=== PATIENT | female | born 2000 | race Caucasian/White ===

== ENCOUNTER 2023-11-10 20:12 | Emergency (ER) | payer OTHER, SELFPAY ==
--- NOTE | ~2023-11-10 | XR_ITS ---
EXAMINATION: XR KNEE, LEFT CLINICAL INFORMATION: Pain. COMPARISON: None available. TECHNIQUE: Two views of the left knee. FINDINGS: There is no fracture or dislocation. Joint spaces are maintained. There is a small suprapatellar effusion. The regional soft tissue is normal in appearance. XR/XR knee LT 2V IMPRESSION: No fracture or dislocation. Small suprapatellar effusion.
[2023-11-10 20:28] VITALS: BP 123/78; PULSE 88; RESP 18; TEMP 36.7; O2SAT 98; BMI 39.4
--- OUTSIDE RECORDS SUMMARY | 2023-11-10 21:42 | XMS_ITS | Continuity of Care Document ---
Author Organization [facility] Address [address] [place] [address]- Care Team Providers Care Hide Worker Name Role Phone Savannah Dasha ALTAMIRANO Primary Care Physician Encounter [facility] [place] Date(s): 09/15/20 - 10/15/[address] [address] Allergies, Adverse Reactions, Alerts No Known Medication Allergies Medications Apri 0.15 mg-0.03 mg oral tablet 1 tablet, By Mouth, Daily, # 84 tablet, 4 Refills, Maintenance, 10/07/20 11:32:00 EDT, Tablet, [facility]/pharmacy #[id number], Partial fill upon patient request if the prescription is for a schedule II opioid drug., 1 tablet By Mouth Daily, 88.8, kg, 07/25/20 6:2... Start Date: 10/07/20 Status: Ordered ibuprofen 800 mg oral tablet See Instructions, TAKE 1 TABLET BY MOUTH 3 TIMES A DAY, # 90 tablet, Refills 0, Acute, InstructionsReplace Required Details, Route to Pharmacy Electronically, [facility] STORE [id number], 88.8, kg, 07/25/20 6:22:00 EST, Dry Weight Start Date: 08/18/20 Status: Ordered Keflex monohydrate 500 mg oral capsule = 500 mg, By Mouth, 4 times a day, # 28 capsule, 0 Refills, Maintenance, 06/12/19 4:23:00 EST Start Date: 06/12/19 Status: Ordered Tylenol 325 mg oral tablet 650 mg, 2, tablet, By Mouth, Every 4 hours, PRN, # 120 tablet, Refills 0, Tot. Refills 0, Maintenance, for fever, 07/25/20 7:34:00 EST, Route to Pharmacy Electronically, [facility]/pharmacy #[id number], Partial fill upon patient request if the prescription is for... Start Date: 07/25/20 Status: Ordered Social History Social History Type Response Smoking Status Never (less than 100 in lifetime) entered on: 08/20/20 Sex
--- OUTSIDE RECORDS SUMMARY | 2023-11-10 21:42 | XMS_ITS | Continuity of Care Document ---
Author Organization [facility] Address [address] [place] [address]- Care Team Providers Care Spiritual Advisor Name Role Phone Dasha Nuñez MD Primary Care Physician [phone] [place] [facility] [place] 10/11/22 - 11/10/22 [facility]/[address] [address]- Attending Physician: Shruthi Walden Admitting Physician: Shruthi Walden Referring Physician: AdmtrShruthi Allergies, Adverse Reactions, Alerts No Known Medication Allergies Medications Apri 0.15 mg-0.03 mg oral tablet 1 tablet, By Mouth, Daily, # 84 tablet, 4 Refills, Maintenance, 10/07/20 11:32:00 EDT, Tablet, [facility]/pharmacy #[id number], Partial fill upon patient request if the prescription is for a schedule II opioid drug., 1 tablet By Mouth Daily, 88.8, kg, 07/25/20 6:2... Start Date: 10/07/20 Status: Ordered ibuprofen 800 mg oral tablet See Instructions, TAKE 1 TABLET BY MOUTH 3 TIMES A DAY, # 90 tablet, Refills 0, Acute, InstructionsReplace Required Details, Route to Pharmacy Electronically, [facility] ST[facility] [id number], 88.8, kg, 07/25/20 6:22:00 EST, Dry Weight [...] 07/25/20 7:34:00 EST, Route to Pharmacy Electronically, [facility]/pharmacy #[id number], Partial fill upon patient request if the prescription is for... Start Date: 07/25/20 Status: Ordered Social History Social History Type Response Smoking Status Never (less than 100 in lifetime) entered on: 08/20/20 Sex Patient Care team information Care Team Personnel Name: Dasha Nuñez MD Position: [facility] Outreach Member Role: PCP Address: Address: [address] [place] [address]- Care Team Related Persons Name: NAHID MORGAN Address: home [address] [facility] [facility] [address] [place] [address]
--- OUTSIDE RECORDS SUMMARY | 2023-11-10 21:42 | XMS_ITS | Continuity of Care Document ---
Author Organization [facility] ter Address [address] [place] [address]- Care Team Providers Care Community Health Nursing Director Name Role Phone Not on Staff, PCP Primary Care Physician Unavail able Encounter [facility] Date(s): 06/12/19 - 06/12/[address] [address]- [facility] Encounter Diagnosis Acute urinary tract infection(Final) - 06/12/19 Discharge Disposition: A-D/C Home Attending Physician: Frank Medellin MD Admitting Physician: Frank Medellin MD Referring Physician: Not on Staff, Referring MD Allergies, Adverse Reactions, Alerts No Known Medication Allergies Medications Keflex monohydrate 500 mg oral capsule = 500 mg, By Mouth, 4 times a day, # 28 capsule, 0 Refills, Maintenance, 06/12/19 4:23:00 EST Start Date: 06/12/19 Status: Ordered Pyridium 100 mg oral tablet 1 tablet = 100 mg, By Mouth, 3 times a day, for 3 days, # 9 tablet, 0 Refills, Acute 06/15/19 4:23:00 EST, 06/12/19 4:23:00 EST, Tablet Start Date: 06/12/19 Stop Date: 06/15/19 Status: Ordered Vital Signs Most recent to oldest [Reference Range]: 1 2 Oxygen Saturation [94-100 %] 100 % (06/12/19 3:23 AM) 99 % (06/12/19 1:38 AM) Pulse Rate [55-90 bpm] 107 bpm *H* (06/12/19 3:23 AM) 88 bpm (06/12/19 1:38 AM) Blood Pressure [71-110/30-71 mm Hg] 134/ 76mm Hg *H* (06/12/19 3:23 AM) 123/73mm Hg *H* (06/12/19 1:38 AM) Respiratory Rate [16-30 br/min] 20 br/mi n (06/12/19 3:23 AM) 20 br/min (06/12/19 1:38 AM) Temperature [96.8-100.4 DegF] 98.5 DegF (06/12/19 3:23 AM) 98.6 DegF (06/12/19 1:38 AM) Mode of Delivery (Oxygen) Room air (06/12/19 3:23 AM) Room air (06/12/19 1:38 AM) Blood pressure sites Arm, right (06/12/19 3:23 AM) Arm, right (06/12/19 1:38 AM) Temperature Route Oral (06/12/19 3:23 AM) Oral (06/12/19 1:38 AM)
--- OUTSIDE RECORDS SUMMARY | 2023-11-10 21:42 | XMS_ITS | Continuity of Care Document ---
Author Organization [facility] Address [address] [place] [address]- Care Team Providers Care Room Service Runner Name Role Phone Savannah Dasha ALTAMIRANO Primary Care Physician [phone] [place] [facility] [place] - 08/30/[address] [address] Allergies, Adverse Reactions, Alerts No Known Medication Allergies Medications Apri 0.15 mg-0.03 mg oral tablet 1 tablet, By Mouth, Daily, # 84 tablet, 2 Refills, Maintenance, 07/25/20 7:32:00 EST, Tablet, [facility]/pharmacy #[id number], Partial fill upon patient request if the prescription is for a schedule II opioid drug., 1 tablet By Mouth Daily, 88.8, kg, 07/25/20 6:22... Start Date: 07/25/20 Status: Ordered ibuprofen 800 mg oral tablet See Instructions, TAKE 1 TABLET BY MOUTH 3 TIMES A DAY, # 90 tablet, Refills 0, Acute, InstructionsReplace Required Details, Route to Pharmacy Electronically, [facility] STORE [id number], 88.8, kg, 07/25/20 6:22:00 EST, Dry Weight [...] 07/25/20 7:34:00 EST, Route to Pharmacy Electronically, [facility]/pharmacy #[id number], Partial fill upon patient request if the prescription is for... Start Date: 07/25/20 Status: Ordered Social History Social History Type Response Smoking Status Never (less than 100 in lifetime) entered on: 08/20/20 Sex
--- OUTSIDE RECORDS SUMMARY | 2023-11-10 21:42 | XMS_ITS | Continuity of Care Document ---
Author Organization [facility] Address [address] [place] [address]- Care Team Providers Care Brick Extruder Operator Name Role Phone Dasha Nuñez MD Primary Care Physician Encounter [facility] Date(s): 11/18/20 - 12/18/20 [facility] [address] [place] [address] [address] Allergies, Adverse Reactions, Alerts No Known Medication Allergies Medications Apri 0.15 mg-0.03 mg oral tablet 1 tablet, By Mouth, Daily, # 84 tablet, 4 Refills, Maintenance, 10/07/20 11:32:00 EDT, Tablet, [facility]/pharmacy #[id number], Partial fill upon patient request if the prescription is for a schedule II opioid drug., 1 tablet By Mouth Daily, 88.8, kg, 07/25/20 6:2... Start Date: 10/07/20 Status: Ordered ibuprofen 800 mg oral tablet See Instructions, TAKE 1 TABLET BY MOUTH 3 TIMES A DAY, # 90 tablet, Refills 0, Acute, InstructionsReplace Required Details, Route to Pharmacy Electronically, [facility] STORE [id number], 88.8, kg, 07/25/20 6:22:00 EST, Dry Weight [...] 07/25/20 7:34:00 EST, Route to Pharmacy Electronically, [facility]/pharmacy #[id number], Partial fill upon patient request if the prescription is for... Start Date: 07/25/20 Status: Ordered Social History Social History Type Response Smoking Status Never (less than 100 in lifetime) entered on: 08/20/20 Sex
--- OUTSIDE RECORDS SUMMARY | 2023-11-10 21:42 | XMS_ITS | Continuity of Care Document ---
Author Organization [facility] Address [address] [place] [address]- Care Team Providers Care Leguillon Debeader Name Role Phone Dasha Nuñez MD Primary Care Physician Encounter [facility] [place] Date(s): 09/29/20 - 10/29/20 [facility] [address] [place], [place] [address] Allergies, Adverse Reactions, Alerts No Known Medication Allergies Medications Apri 0.15 mg-0.03 mg oral tablet 1 tablet, By Mouth, Daily, # 84 tablet, 4 Refills, Maintenance, 10/07/20 11:32:00 EDT, Tablet, [facility]/pharmacy #[id number], Partial fill upon patient request if the prescription is for a schedule II opioid drug., 1 tablet By Mouth Daily, 88.8, kg, 07/25/20 6:2... Start Date: 10/07/20 Status: Ordered ibuprofen 800 mg oral tablet See Instructions, TAKE 1 TABLET BY MOUTH 3 TIMES A DAY, # 90 tablet, Refills 0, Acute, InstructionsReplace Required Details, Route to Pharmacy Electronically, [facility] ST[facility] 17724, 88.8, kg, 07/25/20 6:22:00 EST, Dry Weight [...] 07/25/20 7:34:00 EST, Route to Pharmacy Electronically, [facility]/pharmacy #[id number], Partial fill upon patient request if the prescription is for... Start Date: 07/25/20 Status: Ordered Social History Social History Type Response Smoking Status Never (less than 100 in lifetime) entered on: 08/20/20 Sex
--- OUTSIDE RECORDS SUMMARY | 2023-11-10 21:42 | XMS_ITS | Continuity of Care Document ---
Author Organization [facility] Address [address] [place] [address]- Care Team Providers Care Swine Genetics Researcher Name Role Phone Savannah Dasha ALTAMIRANO Primary Care Physician [phone] [place] [facility] [place](s): 08/20/20 - 09/19/[address] [address]- Attending Physician: Shruthi Walden Admitting Physician: AdmtrShruthi Referring Physician: AdmtrShruthi Allergies, Adverse Reactions, Alerts No Known Medication Allergies Medications Apri 0.15 mg-0.03 mg oral tablet 1 tablet, By Mouth, Daily, # 84 tablet, 2 Refills, Maintenance, 07/25/20 7:32:00 EST, Tablet, [facility]/pharmacy #[id number], Partial fill upon patient request if the prescription is for a schedule II opioid drug., 1 tablet By Mouth Daily, 88.8, kg, 07/25/20 6:22... Start Date: 07/25/20 Status: Ordered ibuprofen 800 mg oral tablet See Instructions, TAKE 1 TABLET BY MOUTH 3 TIMES A DAY, # 90 tablet, Refills 0, Acute, InstructionsReplace Required Details, Route to Pharmacy Electronically, [facility] STORE [id number], 88.8, kg, 07/25/20 6:22:00 EST, Dry Weight [...] 07/25/20 7:34:00 EST, Route to Pharmacy Electronically, [facility]/pharmacy #[id number], Partial fill upon patient request if the prescription is for... Start Date: 07/25/20 Status: Ordered Social History Social History Type Response Smoking Status Never (less than 100 in lifetime) entered on: 08/20/20 Sex
--- OUTSIDE RECORDS SUMMARY | 2023-11-10 21:42 | XMS_ITS | Continuity of Care Document ---
Author Organization [facility] ter Address [address] [place] [address]- Care Team Providers Care Quality Control Lead Name Role Phone Kristi Peterson MD Primary Care Physician [place] [facility] [place]19/20 - 07/20/[address] [address]- Encounter Diagnosis Pelvic pain(Final) - 07/20/20 Discharge Disposition: A-D/C Home Attending Physician: Chiara Gr DO Admitting Physician: Chiara Gr DO Referring Physician: Not on Staff, Referring MD Allergies, Adverse Reactions, Alerts No Known Medication Allergies Medications Keflex monohydrate 500 mg oral capsule = 500 mg, By Mouth, 4 times a day, # 28 capsule, 0 Refills, Maintenance, 06/12/19 4:23:00 EST Start Date: 06/12/19 Status: Ordered Vital Signs Most recent to oldest [Reference Range]: 1 2 3 Oxygen Saturation [94-100 %] 100 % (07/20/20 6:06 AM) 99 % (07/20/20 2:01 AM) 100 % (07/19/20 10:39 PM) Pulse Rate [55-90 bpm] 86 bpm (07/20/20 6:06 AM) 98 bpm *H* (07/20/20 2:01 AM) 95 bpm *H* (07/19/20 10:39 PM) Blood Pressure [90-138/55-84 mm Hg] 121/68mm Hg (07/20/20 6:06 AM) 110/68mm Hg (07/20/20 2:01 AM) 111/66mm Hg (07/19/20 10:39 PM) Respiratory Rate [16-30 br/min] 20 br/min (07/20/20 6:06 AM) 16 br/min (07/19/20 10:39 PM) Temperature [96.8-100.4 DegF] 98.8 DegF (07/19/20 10:39 PM) Mode of Delivery (Oxygen) Room air (07/19/20 10:39 PM) Room air (07/19/20 10:17 PM) Blood pressure sites Arm, left (07/19/20 10:39 PM) Temperature Route Oral (07/19/20 10:39 PM)
--- OUTSIDE RECORDS SUMMARY | 2023-11-10 21:42 | XMS_ITS | Continuity of Care Document ---
Author Organization [facility] Address [address] [place] [address]- Care Team Providers Care As400 Developer Name Role Phone Savannah Dasha ALTAMIRANO Primary Care Physician [phone] Encounter [facility] Date(s): 10/07/20 - 11/06/[address] [address] Allergies, Adverse Reactions, Alerts No Known Medication Allergies Medications Apri 0.15 mg-0.03 mg oral tablet 1 tablet, By Mouth, Daily, # 84 tablet, 4 Refills, Maintenance, 10/07/20 11:32:00 EDT, Tablet, [facility]/pharmacy #[id number], Partial fill upon patient request if the prescription is for a schedule II opioid drug., 1 tablet By Mouth Daily, 88.8, kg, 07/25/20 6:2... Start Date: 10/07/20 Status: Ordered ibuprofen 800 mg oral tablet See Instructions, TAKE 1 TABLET BY MOUTH 3 TIMES A DAY, # 90 tablet, Refills 0, Acute, InstructionsReplace Required Details, Route to Pharmacy Electronically, [facility] STORE [id number], 88.8, kg, 07/25/20 6:22:00 EST, Dry Weight [...] 07/25/20 7:34:00 EST, Route to Pharmacy Electronically, [facility]/pharmacy #[id number], Partial fill upon patient request if the prescription is for... Start Date: 07/25/20 Status: Ordered Social History Social History Type Response Smoking Status Never (less than 100 in lifetime) entered on: 08/20/20 Sex
--- OUTSIDE RECORDS SUMMARY | 2023-11-10 21:42 | XMS_ITS | Continuity of Care Document ---
Author Organization [facility] Address [address] [place] [address]- Care Team Providers Care Filling Hand Name Role Phone Savannah Dasha ALTAMIRANO Primary Care Physician Encounter [facility] [place] Date(s): 07/23/20 - 09/05/[address] [address]- Attending Physician: Not on Staff, Attending MD Referring Physician: Kristi Peterson MD Allergies, Adverse Reactions, Alerts No Known Medication Allergies Medications Apri 0.15 mg-0.03 mg oral tablet 1 tablet, By Mouth, Daily, # 84 tablet, 2 Refills, Maintenance, 07/25/20 7:32:00 EST, Tablet, [facility]/pharmacy #[id number], Partial fill upon patient request if the prescription is for a schedule II opioid drug., 1 tablet By Mouth Daily, 88.8, kg, 07/25/20 6:22... Start Date: 07/25/20 Status: Ordered ibuprofen 800 mg oral tablet See Instructions, TAKE 1 TABLET BY MOUTH 3 TIMES A DAY, # 90 tablet, Refills 0, Acute, InstructionsReplace Required Details, Route to Pharmacy Electronically, [facility] STORE [id number], 88.8, kg, 07/25/20 6:22:00 EST, Dry Weight [...] 07/25/20 7:34:00 EST, Route to Pharmacy Electronically, [facility]/pharmacy #[id number], Partial fill upon patient request if the prescription is for... Start Date: 07/25/20 Status: Ordered Social History Social History Type Response Smoking Status Never (less than 100 in lifetime) entered on: 08/20/20 Sex
--- OUTSIDE RECORDS SUMMARY | 2023-11-10 21:42 | XMS_ITS | Continuity of Care Document ---
Author Organization [facility] Address [address] [place] [address]- Care Team Providers Care Contact Center Consultant Name Role Phone Savannah Dasha ALTAMIRANO Primary Care Physician Encounter [facility] [place] Date(s): 10/09/20 - 11/08/[address] [address] Allergies, Adverse Reactions, Alerts No Known Medication Allergies Medications Apri 0.15 mg-0.03 mg oral tablet 1 tablet, By Mouth, Daily, # 84 tablet, 4 Refills, Maintenance, 10/07/20 11:32:00 EDT, Tablet, [facility]/pharmacy #[id number], Partial fill upon patient request if the prescription is for a schedule II opioid drug., 1 tablet By Mouth Daily, 88.8, kg, 07/25/20 6:2... Start Date: 10/07/20 Status: Ordered ibuprofen 800 mg oral tablet See Instructions, TAKE 1 TABLET BY MOUTH 3 TIMES A DAY, # 90 tablet, Refills 0, Acute, InstructionsReplace Required Details, Route to Pharmacy Electronically, [facility] STORE 07462, 88.8, kg, 07/25/20 6:22:00 EST, Dry Weight [...] 07/25/20 7:34:00 EST, Route to Pharmacy Electronically, [facility]/pharmacy #[id number], Partial fill upon patient request if the prescription is for... Start Date: 07/25/20 Status: Ordered Social History Social History Type Response Smoking Status Never (less than 100 in lifetime) entered on: 08/20/20 Sex
--- OUTSIDE RECORDS SUMMARY | 2023-11-10 21:42 | XMS_ITS | Continuity of Care Document ---
Author Organization [facility] Address [address] [place] [address]- Care Team Providers Care Staff Development Coordinator Rn Name Role Phone Savannah Dasha ALTAMIRANO Primary Care Physician [phone] [place] [facility] [place] - 08/19/[address] [address] Allergies, Adverse Reactions, Alerts No Known Medication Allergies Medications Apri 0.15 mg-0.03 mg oral tablet 1 tablet, By Mouth, Daily, # 84 tablet, 2 Refills, Maintenance, 07/25/20 7:32:00 EST, Tablet, [facility]/pharmacy #[id number], Partial fill upon patient request if the prescription is for a schedule II opioid drug., 1 tablet By Mouth Daily, 88.8, kg, 07/25/20 6:22... Start Date: 07/25/20 Status: Ordered ibuprofen 800 mg oral tablet See Instructions, TAKE 1 TABLET BY MOUTH 3 TIMES A DAY, # 90 tablet, Refills 0, Acute, InstructionsReplace Required Details, Route to Pharmacy Electronically, [facility] 10744, 88.8, kg, 07/25/20 6:22:00 EST, Dry Weight [...] 07/25/20 7:34:00 EST, Route to Pharmacy Electronically, [facility]/pharmacy #[id number], Partial fill upon patient request if the prescription is for... Start Date: 07/25/20 Status: Ordered
--- OUTSIDE RECORDS SUMMARY | 2023-11-10 21:42 | XMS_ITS | Continuity of Care Document ---
Author Organization [facility] ter Address [address] [place] [address]- Care Team Providers Care Lei Seller Name Role Phone Kristi Peterson MD Primary Care Physician En[place] [facility] [place] Date(s): 07/25/20 - 07/25/[address] [address]- Discharge Disposition: A-D/C Home Attending Physician: Bety Jo MD Admitting Physician: Bety Jo MD Referring Physician: Bety Jo MD Allergies, Adverse Reactions, Alerts No Known Medication Allergies Medications Apri 0.15 mg-0.03 mg oral tablet 1 tablet, By Mouth, Daily, # 84 tablet, 2 Refills, Maintenance, 07/25/20 7:32:00 EST, Tablet, [facility]/pharmacy #[id number], Partial fill upon patient request if the prescription is for a schedule II opioid drug., 1 tablet By Mouth Daily, 88.8, kg, 07/25/20 6:22... Start Date: 07/25/20 Status: Ordered ibuprofen 800 mg oral tablet 800 mg, 1, tablet, By Mouth, 3 times a day, # 90 tablet, Refills 0, Tot. Refills 0, Maintenance, 07/25/20 7:34:00 EST, Route to Pharmacy Electronically, [facility]/pharmacy #[id number], Partial fill upon patient request if the prescription is for a schedule II opi... Start Date: 07/25/20 Status: Ordered Keflex monohydrate 500 mg oral [...] 07/25/20 7:34:00 EST, Route to Pharmacy Electronically, [facility]/pharmacy #[id number], Partial fill upon patient request if the prescription is for... Start Date: 07/25/20 Status: Ordered Vital Signs Most recent to oldest [Reference Range]: 1 2 3 Weight 88.8 kg (07/25/20 6:22 AM) Oxygen Saturation [94-100 %] 100 % (07/25/20 8:45 AM) 100 % (07/25/20 8:30 AM) 100 % (07/25/20 8:16 AM) Pulse Rate [55-90 bpm] 89 bpm (07/25/20 6:22 AM) Blood Pressure [90-138/55-84 mm Hg] 105/73mm Hg (07/25/20 8:45 AM) 100/67mm Hg (07/25/20 8:30 AM) 101/49mm Hg (07/25/20 8:16 AM) Respiratory Rate [16-30 br/min] 17 br/min (07/25/20 8:45 AM) 19 br/min (07/25/20 8:30 AM) 15 br/min *L* (07/25/20 8:16 AM) Temperature [96.8-100.4 DegF] 99.0 DegF (07/25/20 9:30 AM) 99.4 DegF (07/25/20 8:16 AM) 98.2 DegF (07/25/20 6:22 AM) Liters per Minute 6 L/min (07/25/20 8:45 AM) 6 L/min (07/25/20 8:30 AM) 6 L/min (07/25/20 8:15 AM) Mode of Delivery (Oxygen) Simple face ma sk (07/25/20 8:45 AM) Simple face mask (07/25/20 8:30 AM) Simple face mask (07/25/20 8:15 AM) Blood pressure sites Arm, right (07/25/20 8:16 AM) Arm, left (07/25/20 6:22 AM) Temperature Route Temporal (07/25/20 9:30 AM) Temporal (07/25/20 8:16 AM) Temporal (07/25/20 6:22 AM) Dry Weight 88.8 kg (07/25/20 6:22 AM)
--- OUTSIDE RECORDS SUMMARY | 2023-11-10 21:42 | XMS_ITS | Continuity of Care Document ---
Author Organization [facility] Address [address] [place] [address]- Care Team Providers Care Forensic Toxicologist Name Role Phone Not on Staff, PCP Primary Care Physician Unavail able [place] [facility] [place] 02/23/20 - 02/23/[address] [address]- [facility] Encounter Diagnosis Sprain of elbow, right(Final) - 02/23/20 Discharge Disposition: A-D/C Home Attending Physician: Frank Vega MD Admitting Physician: Frank Vega MD Referring Physician: Not on Staff, Referring MD Allergies, Adverse Reactions, Alerts No Known Medication Allergies Medications Keflex monohydrate 500 mg oral capsule = 500 mg, By Mouth, 4 times a day, # 28 capsule, 0 Refills, Maintenance, 06/12/19 4:23:00 EST Start Date: 06/12/19 Status: Ordered Results Radiology Reports * Exam Date Time Procedure Performing Provider Status 02/23/20 3:43 AM Forearm 2 Views Right Laney Borges ; Willy (Verified) Notes: (Forearm 2 Views Right) Reason For Exam: with Pain;Trauma RESULT: Forearm 2 Views Right PROCEDURE: Forearm 2 Views Right CLINICAL INDICATION: 19 years old Female with Hx of Present Illness: fell at work, pain right arm ,lower back and head; Reason: Trauma; with Pain; Clinical Question(s): Fracture; Special Instructions: This is a protocol film and radiologist should call any findings to the Charge Nurse. TECHNIQUE: Frontal and lateral views of the RIGHT forearm are obtained. COMPARISONS: None. FINDINGS: Bones and joints: No fracture or dislocation. Joint spaces are normal. Soft Tissues: Regional soft tissues are unremarkable. No evidence of radiopaque foreign body. IMPRESSION: 1. No evidence of acute bony injuries. Thank you for allowing me to participate in the care of this patient. WSN: [id number] Ordering Physician: Iliana العلي Dictated By: Rudy Nagel MD Dictated Date/Time: 02/23/20 8:30 am Reviewed By: Rudy Nagel MD Signed By: Rudy Nagel MD Signed Date/Time: 02/23/20 8:30 am Transcribed By: JESICA Transcribed Date/Time: 02/23/20 8:29 am Vital Signs Most recent to oldest [Reference Range]: 1 2 3 Oxygen Saturation [94-100 %] 100 % (02/23/20 8:17 AM) 99 % (02/23/20 6:51 AM) 100 % (02/23/20 3:23 AM) Pulse Rate [55-90 bpm] 76 bpm (02/23/20 8:17 AM) 84 bpm (02/23/20 6:51 AM) 90 bpm (02/23/20 3:23 AM) Blood Pressure [90-138/55-84 mm Hg] 120/74mm Hg (02/23/20 8:17 AM) 138/77mm Hg (02/23/20 6:51 AM) 139/74mm Hg *H* (02/23/20 3:23 AM) Respiratory Rate [16-30 br/min] 17 br/min (02/23/20 8:17 AM) 20 br/min (02/23/20 6:51 AM) 16 br/min (02/23/20 3:23 AM) Temperature [96.8-100.4 DegF] 97.6 DegF (02/23/20 8:17 AM) 98.8 DegF (02/23/20 6:51 AM) 98.3 DegF (02/23/20 3:23 AM) Mode of Delivery (Oxygen) Room air (02/23/20 8:17 AM) Room air (02/23/20 6:51 AM) Room air (02/23/20 3:23 AM) Blood pressure sites Arm, left (02/23/20 8:17 AM) Arm, left (02/23/20 6:51 AM) Arm, left (02/23/20 3:23 AM) Temperature Route Oral (02/23/20 8:17 AM) Oral (02/23/20 6:51 AM) Oral (02/23/20 3:23 AM)
--- OUTSIDE RECORDS SUMMARY | 2023-11-10 21:42 | XMS_ITS | Continuity of Care Document ---
Author Organization [facility] Address [address] [place] [address]- Care Team Providers Care Meteorology Professor Name Role Phone Savannah Dasha ALTAMIRANO Primary Care Physician [place] [facility] [place]/[address] [address] Allergies, Adverse Reactions, Alerts No Known Medication Allergies Medications Apri 0.15 mg-0.03 mg oral tablet 1 tablet, By Mouth, Daily, # 84 tablet, 2 Refills, Maintenance, 07/25/20 7:32:00 EST, Tablet, [facility]/pharmacy #[id number], Partial fill upon patient request if the prescription is for a schedule II opioid drug., 1 tablet By Mouth Daily, 88.8, kg, 07/25/20 6:22... Start Date: 07/25/20 Status: Ordered ibuprofen 800 mg oral tablet See Instructions, TAKE 1 TABLET BY MOUTH 3 TIMES A DAY, # 90 tablet, Refills 0, Acute, InstructionsReplace Required Details, Route to Pharmacy Electronically, [id number], 88.8, kg, 07/25/20 6:22:00 EST, Dry Weight [...] 07/25/20 7:34:00 EST, Route to Pharmacy Electronically, [facility]/pharmacy #[id number], Partial fill upon patient request if the prescription is for... Start Date: 07/25/20 Status: Ordered Social History Social History Type Response Smoking Status Never (less than 100 in lifetime) entered on: 08/20/20 Sex
--- OUTSIDE RECORDS SUMMARY | 2023-11-10 21:42 | XMS_ITS | Continuity of Care Document ---
Author Organization [facility] ter Address [address] [place] [address]- Care Team Providers Care Transfer Knitter Name Role Phone Savannah Dasha ALTAMIRANO Primary Care Physician En[place] [facility] [place](s): 11/10/20 - 11/11/[address] [address]- Discharge Disposition: A-D/C Walkout Attending Physician: Not on Staff, Attending MD Admitting Physician: Not on Staff, Admitting MD Referring Physician: Not on Staff, Referring MD Allergies, Adverse Reactions, Alerts No Known Medication Allergies Medications Apri 0.15 mg-0.03 mg oral tablet 1 tablet, By Mouth, Daily, # 84 tablet, 4 Refills, Maintenance, 10/07/20 11:32:00 EDT, Tablet, [facility]/pharmacy #[id number], Partial fill upon patient request if the prescription is for a schedule II opioid drug., 1 tablet By Mouth Daily, 88.8, kg, 07/25/20 6:2... Start Date: 10/07/20 Status: Ordered ibuprofen 800 mg oral tablet See Instructions, TAKE 1 TABLET BY MOUTH 3 TIMES A DAY, # 90 tablet, Refills 0, Acute, InstructionsReplace Required Details, Route to Pharmacy Electronically, [id number], 88.8, kg, 07/25/20 6:22:00 EST, Dry Weight [...] 07/25/20 7:34:00 EST, Route to Pharmacy Electronically, [facility]/pharmacy #[id number], Partial fill upon patient request if the prescription is for... Start Date: 07/25/20 Status: Ordered Results Orders for Microbiology Reports Name Date Group A Strep Screen and Culture 11/10/20 Microbiology Reports TEST:Group A Strep Screen and Culture STATUS:Unauthenticated BODY SITE: SOURCE:THROAT COLLECTED DATE/TIME:11/10/20 9:30 PM Group A Strep Screen and Culture SPECIMEN DESCRIPTION : THROAT SWAB SPECIAL REQUESTS : NONE DIRECT EXAM : RAPID GROUP A RESULT IS NEGATIVE, REFER TO CULTURE RESULT. REPORT STATUS : PRELIMINARY REPORT Vital Signs Most recent to oldest [Reference Range]: 1 2 3 Oxygen Saturation [94-100 %] 99 % (11/11/20 3:11 AM) 98 % (11/11/20 12:40 AM) 99 % (11/10/20 9:10 PM) Pulse Rate [55-90 bpm] 90 bpm (11/11/20 3:11 AM) 104 bpm *H* (11/11/20 12:40 AM) 85 bpm (11/10/20 9:10 PM) Blood Pressure [90-138/55-84 mm Hg] 136/89mm Hg (11/11/20 3:11 AM) 148/88mm Hg *H* (11/11/20 12:40 AM) 126/64mm Hg (11/10/20 9:10 PM) Respiratory Rate [16-30 br/min] 20 br/min (11/11/20 3:11 AM) 20 br/min (11/11/20 12:40 AM) 16 br/min (11/10/20 9:10 PM) Temperature [96.8-100.4 DegF] 98.0 DegF (11/11/20 3:11 AM) 98.2 DegF (11/11/20 12:40 AM) 98.6 DegF (11/10/20 9:10 PM) Mode of Delivery (Oxygen) Room air (11/11/20 3:11 AM) Room air (11/11/20 12:40 AM) Room air (11/10/20 9:10 PM) Blood pressure sites Arm, left (11/10/20 9:10 PM) Temperature Route Oral (11/11/20 3:11 AM) Oral (11/11/20 12:40 AM) Oral (11/10/20 9:10 PM) Social History Social History Type Response Smoking Status Never (less than 100 in lifetime) entered on: 08/20/20 Sex
--- OUTSIDE RECORDS SUMMARY | 2023-11-10 21:42 | XMS_ITS | Continuity of Care Document ---
Author Organization [facility] Address [address] [place] [address]- Care Team Providers Care State Appellate Clerk Name Role Phone Savannah Dasha ALTAMIRANO Primary Care Physician [phone] Encounter [facility] [place] Date(s): 07/25/20 - 08/24/[address] [address] Allergies, Adverse Reactions, Alerts No Known Medication Allergies Medications Apri 0.15 mg-0.03 mg oral tablet 1 tablet, By Mouth, Daily, # 84 tablet, 2 Refills, Maintenance, 07/25/20 7:32:00 EST, Tablet, [facility]/pharmacy #[id number], Partial fill upon patient request if the prescription is for a schedule II opioid drug., 1 tablet By Mouth Daily, 88.8, kg, 07/25/20 6:22... Start Date: 07/25/20 Status: Ordered ibuprofen 800 mg oral tablet See Instructions, TAKE 1 TABLET BY MOUTH 3 TIMES A DAY, # 90 tablet, Refills 0, Acute, InstructionsReplace Required Details, Route to Pharmacy Electronically, [facility]854, 88.8, kg, 07/25/20 6:22:00 EST, Dry Weight [...] 07/25/20 7:34:00 EST, Route to Pharmacy Electronically, [facility]/pharmacy #[id number], Partial fill upon patient request if the prescription is for... Start Date: 07/25/20 Status: Ordered Social History Social History Type Response Smoking Status Never (less than 100 in lifetime) entered on: 08/20/20 Sex
--- OUTSIDE RECORDS SUMMARY | 2023-11-10 21:42 | XMS_ITS | Continuity of Care Document ---
Author Organization [facility] ter Address [address] [place] [address]- Care Team Providers Care Hand Chain Maker Name Role Phone Dasha Nuñez MD Primary Care Physician [phone] Encounter [facility] [place] Date(s): 08/26/20 - 08/27/[address] [address]- Discharge Disposition: A-D/C Home Attending Physician: Klaus Arellano MD Admitting Physician: Klaus Arellano MD Referring Physician: Not on Staff, Referring MD Allergies, Adverse Reactions, Alerts No Known Medication Allergies Medications Apri 0.15 mg-0.03 mg oral tablet 1 tablet, By Mouth, Daily, # 84 tablet, 2 Refills, Maintenance, 07/25/20 7:32:00 EST, Tablet, [facility]/pharmacy #[id number], Partial fill upon patient request if the prescription is for a schedule II opioid drug., 1 tablet By Mouth Daily, 88.8, kg, 07/25/20 6:22... Start Date: 07/25/20 Status: Ordered ibuprofen 800 mg oral tablet See Instructions, TAKE 1 TABLET BY MOUTH 3 TIMES A DAY, # 90 tablet, Refills 0, Acute, InstructionsReplace Required Details, Route to Pharmacy Electronically, [facility] [address]97, 88.8, kg, 07/25/20 6:22:00 EST, Dry Weight [...] 7:34:00 EST, Route to Pharmacy Electronically, [facility]/pharmacy #[id number], Partial fill upon patient request if the prescription is for... Start Date: 07/25/20 Status: Ordered Results Radiology Reports * Exam Date Time Procedure Performing Provider Status 08/27/20 2:47 AM Finger 5th Left Hand Piter De Anda ; Auth (Verified) Notes: (Finger 5th Left Hand) Reason For Exam: Trauma RESULT: Finger 5th Left Hand Finger 5th Left Hand, 3 views Hx of Present Illness: Pt reporting got L 5th finger nail caught in drawer. COMPARISON: None. FINDINGS: No fractures or bone lesions. No arthritic changes. Dorsal elevated nail but otherwise normal. IMPRESSION: Fingernail displacement but otherwise normal. WSN: [id number] Ordering Physician: Redd Krause Dictated By: Reese Henry MD Dictated Date/Time: 08/27/20 7:33 am Reviewed By: Reese Henry MD Signed By: Reese Henry MD Signed Date/Time: 08/27/20 7:33 am Transcribed By: JESICA Transcribed Date/Time: 08/27/20 7:32 am Vital Signs Most recent to oldest [Reference Range]: 1 2 Oxygen Saturation [94-100 %] 99 % (08/27/20 3:40 AM) 100 % (08/26/20 11:52 PM) Pulse Rate [55-90 bpm] 84 bpm (08/27/20 3:40 AM) 86 bpm (08/26/20 11:52 PM) Blood Pressure [90-138/55-84 mm Hg] 111/ 71mm Hg (08/27/20 3:40 AM) 121/75mm Hg (08/26/20 11:52 PM) Respiratory Rate [16-30 br/min] 18 br/mi n (08/27/20 3:40 AM) 20 br/min (08/26/20 11:52 PM) Temperature [96.8-100.4 DegF] 97.5 DegF (08/27/20 3:40 AM) 98.8 DegF (08/26/20 11:52 PM) Mode of Delivery (Oxygen) Room air (08/27/20 3:40 AM) Room air (08/26/20 11:52 PM) Blood pressure sites Arm, left (08/27/20 3:40 AM) Arm, right (08/26/20 11:52 PM) Temperature Route Oral (08/27/20 3:40 AM) Oral (08/26/20 11:52 PM) Social History Social History Type Response Smoking Status Never (less than 100 in lifetime) entered on: 08/20/20 Sex
--- OUTSIDE RECORDS SUMMARY | 2023-11-10 21:42 | XMS_ITS | Continuity of Care Document ---
Author Organization [facility] Address [address] [place] [address]- Care Team Providers Care Seed Expert Name Role Phone Not on Staff, PCP Primary Care Physician Unavail able [place] [facility] [place] 09/28/[address] [address]- Encounter Diagnosis Viral illness(Final) - 09/28/23 Headache(Final) - 09/28/23 Discharge Disposition: A-D/C Home Attending Physician: Johnny Taylor MD Admitting Physician: Johnny Taylor MD Referring Physician: Not on Staff, Referring MD Allergies, Adverse Reactions, Alerts No Known Medication Allergies Medications Apri 0.15 mg-0.03 mg oral tablet 1 tablet, By Mouth, Daily, # 84 tablet, 4 Refills, Maintenance, 10/07/20 11:32:00 EDT, Tablet, [facility]/pharmacy #[id number], Partial fill upon patient request if the prescription is for a schedule II opioid drug., 1 tablet By Mouth Daily, 88.8, kg, 07/25/20 6:2... Start Date: 10/07/20 Status: Ordered ibuprofen 800 mg oral tablet See Instructions, TAKE 1 TABLET BY MOUTH 3 TIMES A DAY, # 90 tablet, Refills 0, Acute, InstructionsReplace Required Details, Route to Pharmacy Electronically, [facility], 88.8, kg, 07/25/20 6:22:00 EST, Dry Weight Start Date: 08/18/20 Status: Ordered Keflex monohydrate 500 mg oral capsule = 500 mg, By Mouth, 4 times a day, # 28 capsule, 0 Refills, Maintenance, 06/12/19 4:23:00 EST Start Date: 06/12/19 Status: Ordered Reglan 10 mg oral tablet 1 tablet = 10 mg, By Mouth, 3 times a day, PRN Nausea & Vomiting, # 12 tablet, 5 Refills, Acute10/01/23 7:30:00 EDT, 09/28/23 7:04:00 EDT, [facility]/pharmacy #[id number], Partial fill upon patient request if the prescription is for a schedule II opioid drug., 16... Start Date: 09/28/23 Stop Date: 10/01/23 Status: Ordered Tylenol 325 mg oral tablet 650 mg, 2, tablet, By Mouth, Every 4 hours, PRN, # 120 tablet, Refills 0, Tot. Refills 0, Maintenance, for fever, 07/25/20 7:34:00 EST, Route to Pharmacy Electronically, [facility]/pharmacy #[id number], Partial fill upon patient request if the prescription is for... Start Date: 07/25/20 Status: Ordered Problem List Condition Confirmation Course Effective Dates Status Health St atus Informant Severe obesity Confirmed Active Vital Signs Most recent to oldest [Reference Range]: 1 2 3 Height 160 cm (09/27/23 11:48 PM) Weight 109.5 kg (09/27/23 11:48 PM) Oxygen Saturation [94-100 %] 96 % (09/28/23 6:53 AM) 95 % (09/28/23 4:54 AM) 95 % (09/28/23 4:35 AM) Pulse Rate [55-90 bpm] 86 bpm (09/28/23 6:53 AM) 89 bpm (09/28/23 4:54 AM) 85 bpm (09/28/23 4:35 AM) Body Mass Index [18.5-24.99 kg/m2] 42.77 kg/m2 *>HHI* (09/27/23 11:48 PM) Blood Pressure [90-138/55-84 mm Hg] 118/71mm Hg (09/28/23 6:53 AM) 115/67mm Hg (09/28/23 4:54 AM) 113/68mm Hg (09/28/23 4:35 AM) Respiratory Rate [16-30 br/min] 18 br/min (09/28/23 6:53 AM) 18 br/min (09/28/23 4:54 AM) 18 br/min (09/28/23 4:35 AM) Temperature [96.8-100.4 DegF] 97.6 DegF (09/28/23 4:54 AM) 97.7 DegF (09/28/23 4:35 AM) 97.9 DegF (09/27/23 11:48 PM) Mode of Delivery (Oxygen) Room air (09/28/23 6:53 AM) Room air (09/28/23 4:54 AM) Room air (09/28/23 4:35 AM) Blood pressure sites Arm, left (09/28/23 6:53 AM) Arm, left (09/28/23 4:54 AM) Arm, left (09/28/23 4:35 AM) Temperature Route Oral (09/28/23 4:54 AM) Oral (09/28/23 4:35 AM) Oral (09/27/23 11:48 PM) Social History Social History Type Response Smoking Status Never (less than 100 in lifetime) entered on: 08/20/20 Sex EKG study * Event Display: ECG 12-Lead Authored Date: Please click on pdf link to open report * Event Display: ECG 12-Lead Authored Date: Ventricular Rate: 82 BPM Atrial Rate: 82 BPM P-R Interval: 134 ms QRS Duration: 78 ms Q-T Interval: 392 ms QTC Calculation(Bazett): 457 ms P [place]: 36 degrees R [place]: 31 degrees T [place]: 4 degrees Normal sinus rhythm with sinus arrhythmia Nonspecific T wave abnormality Abnormal ECG No previous ECGs available Confirmed by GABO ANTHONY MD ([id number]) on 09/28/2023 10:55:59 AM Macy: GABO ANTHONY MD * Event Display: EKG Authored Date: Note * Greg Chery DO W: PERFORM Event Display: Patient Education Leaflets Authored Date: [id number] Migraine Headache ?? Migra??a - Video La migra??a es un tipo de dolor de clint que suele tener s??ntomas graves o inusuales. Sepa qu?? puede desencadenar bhavesh migra??a, enrrique??edd pueden tenerla y c??mo se trata. Para rosalind el video ir a esta direccion web: https://bit.Gastrofy/3xdqOld donaldo Hill QR con el telefono inteligente Last Reviewed Date: 2017 ?? 1913-3086 [employer]. All rights reserved. This information is not intended as a substitute for professional medical care. Always follow your healthcare professional's instructions. ?? Patient Care team information Care Team Personnel Name: Not on Staff, PCP Position: S Physician (General Medicine) Member Role: PCP Care Team Related Persons Name: EDDIE, NAHID Address: [address] [address]
--- OUTSIDE RECORDS SUMMARY | 2023-11-10 21:42 | XMS_ITS | Continuity of Care Document ---
Author Organization [facility] ter Address [address] [place] [address]- Care Team Providers Care Director Of Consulting Services Name Role Phone Not on Staff, PCP Primary Care Physician Unavail able Encounter [facility] Date(s): 06/11/19 - 06/11/[address] [address] [facility] Discharge Disposition: A-D/C Walkout Attending Physician: Not on Staff, Attending MD Admitting Physician: Not on Staff, Admitting MD Referring Physician: Not on Staff, Referring MD Allergies, Adverse Reactions, Alerts No Known Medication Allergies Vital Signs Most recent to oldest [Reference Range]: 1 2 Weight 86.6 kg (06/11/19 6:53 PM) 86.6 kg (06/11/19 6:51 PM) Oxygen Saturation [94-100 %] 95 % (06/11/19 6:51 PM) Pulse Rate [55-90 bpm] 87 bpm (06/11/19 6:51 PM) Blood Pressure [71-110/30-71 mm Hg] 105/ 82mm Hg (06/11/19 6:51 PM) Respiratory Rate [16-30 br/min] 20 br/mi n (06/11/19 6:51 PM) Temperature [96.8-100.4 DegF] 98.2 DegF (06/11/19 6:51 PM) Mode of Delivery (Oxygen) Room air (06/11/19 6:51 PM) Blood pressure sites Arm, right (06/11/19 6:51 PM) Temperature Route Oral (06/11/19 6:51 PM) Dry Weight 86.6 kg (06/11/19 6:53 PM) 86.6 kg (06/11/19 6:51 PM) Weight Obtained Via Standing scale (06/11/19 6:51 PM) Dry Weight Obtained Via Standing scale (06/11/19 6:51 PM)
--- OUTSIDE RECORDS SUMMARY | 2023-11-10 21:42 | XMS_ITS | Continuity of Care Document ---
Author Organization [facility] Address [address] [place] [address]- Care Team Providers Care Clinical Nutritionist Name Role Phone Savannah Dasha ALTAMIRANO Primary Care Physician [place] [facility] [place] 09/17/[address] [email or web address] Allergies, Adverse Reactions, Alerts No Known Medication Allergies Medications Apri 0.15 mg-0.03 mg oral tablet 1 tablet, By Mouth, Daily, # 84 tablet, 2 Refills, Maintenance, 07/25/20 7:32:00 EST, Tablet, [facility]/pharmacy #[id number], Partial fill upon patient request if the prescription is for a schedule II opioid drug., 1 tablet By Mouth Daily, 88.8, kg, 07/25/20 6:22... Start Date: 07/25/20 Status: Ordered ibuprofen 800 mg oral tablet See Instructions, TAKE 1 TABLET BY MOUTH 3 TIMES A DAY, # 90 tablet, Refills 0, Acute, InstructionsReplace Required Details, Route to Pharmacy Electronically, [facility]32, 88.8, kg, 07/25/20 6:22:00 EST, Dry Weight [...] EST, Route to Pharmacy Electronically, [facility]/pharmacy #[id number], Partial fill upon patient request if the prescription is for... Start Date: 07/25/20 Status: Ordered Social History Social History Type Response Smoking Status Never (less than 100 in lifetime) entered on: 08/20/20 Sex
--- NOTE | 2023-11-10 22:27 | ED.LOWEXIN ---
HPI - Extremity Injury (Lower) General Chief Complaint: Extremity Injury, Lower Stated Complaint: L knee work inj from august Time Seen by Provider: 11/10/23 21:58 Source: patient and motor vehicle parts interpreter Mode of arrival: ambulatory Limitations: no limitations History of Present Illness ED Provider: DR. Wen HPI Narrative: 22-year-old female Kazakh-speaking came in for evaluation of chronic left knee pain. Patient had a previous work-related injury to the left knee in August when she slipped and fell at work patient then was cleared medically at a different facility and as patient reported was negative x-ray of the left knee, patient has been complaining of left knee pain since the fall for few weeks pain is worse with movement, patient also noticed swelling in the left knee over the past few days. No fever, no chills, no new injury to the left knee. Related Data Allergies Allergy/AdvReac Type Severity Reaction Status Date / Time No Known Allergies Allergy Verified 11/10/23 20:34 Review of Systems Review of Systems: All other systems are reviewed and are negative Constitutional: Reports as per HPI and Reports no additional constitutional complaints Eyes: Reports as per HPI and Reports no additional eye complaints Reports system reviewed and no additional complaints, except as documented Cardiovascular: Reports as per HPI and Reports no additional cardiovascular complaints Respiratory: Reports as per HPI and Reports no additional respiratory complaints Gastrointestinal: Reports as per HPI and Reports no additional gastrointestinal complaints Genitourinary: Reports no additional female genitourinary complaints Musculoskeletal: Reports no additional musculoskeletal complaints Skin/Breast: Reports system reviewed and no additional complaints, except as docu Psychiatric: Reports no additional psychiatric complaints Endocrine: Reports no additional endocrine complaints Hematologic/Lymphatic: Reports no additional hematologic/lymphatic complaints Allergic/Immunologic: Reports no additional allergic/immunologic complaints Reports system reviewed and no additional complaints, except as documented and Reports Abnormal speech present [facility] Social History Social History Advance Directives: No Advance Directives Information Provided: No Do you have a plan to hurt others: No Plan Physical Exam Vital Signs: Vital Signs: Last Vital Signs Temp 98.0 F 11/10/23 20:28 Pulse 88 11/10/23 20:28 Resp 18 11/10/23 20:28 BP 123/78 11/10/23 20:28 Pulse Ox 98 11/10/23 20:28 O2 Del Method Room Air 11/10/23 20:28 BMI result Body Mass Index 39.4 Vital signs have been reviewed and appear to be correct. Blood pressure elevated. Heart rate normal. Respiratory rate normal. Temperature normal. Oxygen saturation normal. Appearance: Alert. Oriented X3. No acute distress. Head: Normal external exam. Normocephalic. Atraumatic. No Rao signs noted. No raccoon eyes noted Eyes: PERRLA. EOMI. Conjunctiva and sclera normal. Eyelids normal. ENT: TM's Normal. Pharynx normal. Uvula midline. Moist mucous membranes. No trismus noted. No drooling noted. No muffled voice noted. Neck: Normal inspection. Neck supple. FROM. No adenopathy. Thyroid Normal. No meningeal signs. No neck mass noted. CVS: Normal heart rate and rhythm. Heart sound normal. No murmurs noted. Pulses normal throughout. Respiratory: No respiratory distress. Painless inspiration. Breath sounds normal. No wheezes/rales/rhonchi noted. Chest nontender. No accessory muscle usage noted or decreased air movement noted. Abdomen: Soft and nontender. Bowel sounds normal in all 4 quadrants. No distention noted. No organomegaly noted. No visible injury noted. Back: No CVA tenderness. Full range of motion noted. Skin: Skin warm and dry. Normal skin color. Normal skin turgor. No rashes/lesions/lacerations noted. Extremities: Knees exam: Symmetric bilaterally, mild effusion to the left knee, full range of motion to the left knee, neurovascular exam is intact on the left lower extremity. Neuro: Oriented X 3. Cranial nerve exam: II-XII are grossly intact No motor deficit. No sensory deficit. Reflexes normal. Course Reevaluation(s) Reevaluation #1: Chronic left knee pain due to old injury, no acute finding on in a knee x-ray today. Patient was instructed to rest, take NSAIDs, provided with knee immobilizer, follow-up with orthopedic. Time: 22:30 Medical Decision Making Differential Diagnosis Differential Diagnoses: The differential diagnosis associated with the presentation includes (Left knee fracture, left knee ligamentous injury.) Admission/Observation Consideration of admission/observation: Escalation of care including admission/observation considered Independent Interpretation I performed an independent interpretation of an: Plain X-Ray (Left knee x-ray:No fracture or dislocation. Small suprapatellar effusion. ) Radiology Impression Discussion of test interpretation with radiology: I have reviewed the radiologist's reading. Discharge Plan Discharge Clinical Impression: Knee sprain Patient Disposition: Home, Self-Care Instructions: Knee Sprain (ED) Additional Instructions: Apply ice to the left knee. Rest. Take ibuprofen 200 mg tablet every 6 hours if needed for pain. Use the knee immobilizer during activity and avoid strenuous activity. Follow-up with orthopedic as discussed. Referrals: Jeff Almazan MD [Physician] - Stand Alone Forms: Work/School Release Print Language: Kazakh
[2023-11-10 22:57] VITALS: BP 115/72; PULSE 78; RESP 16; TEMP 36.7; O2SAT 97
[2023-11-10] MEDS: Ibuprofen 800 MG TABLET PO (23:29)
[2023-11-10 23:46] VITALS: BP 119/78; PULSE 79; RESP 16; TEMP 36.8; O2SAT 97
[2023-11-10 23:51] VITALS: BP 119/78; PULSE 79; RESP 16; TEMP 36.8; O2SAT 97
== END 2023-11-10 23:53 | disposition home or self-care (01) ==
PROVIDERS: Emergency Provider Emergency Medicine
DX: S83.92XA Sprain of unspecified site of left knee, initial encounter (principal); W01.0XXA Fall on same level from slipping, tripping and stumbling without subsequent striking against object, initial encounter; Y93.9 Activity, unspecified; Y92.9 Unspecified place or not applicable; Y99.0 Civilian activity done for income or pay; M25.562 Pain in left knee
CPT/HCPCS: 73560; 99283; 99284

== ENCOUNTER 2023-11-28 08:19 | Outpatient (AMB) | payer OTHER, SELFPAY ==
--- NOTE | 2023-11-28 08:24 | MHC.OFFVIS ---
Vital Signs 11/28/23 08:37 Height 5 ft 2 in Weight 215 lb BMI 39.3 Intake Visit Reasons: N/P left Knee sprain Intake Note: Angelic a 22 year old female who presents today for an evaluation of left knee pain. Patient reports a work-related injury to her left knee around August when she slipped and fell at work. She expresses that her pain is a 7/10 on the pain scale since she hasn't been walking on it. Pain is focused on the top of her knee and it stays in that area. Patient has tried ibuprofen 800MG which gives her relief. Her pain is worse when she is walking, standing and going up the stairs. Junior Media Buyer Name: John ID#[id number] Allergies No Known Allergies Allergy (Verified 11/28/23 08:36) Medication List - Last Reconciled 11/28/23 by Abebe Angel PA-C ibuprofen 800 mg PO TID PRN HPI HPI N/P left Knee sprain: Details: 22-year-old female who presents to the office today with an hand roller for an evaluation of left knee injury around August after slipping and falling at work. She states she has pain at the top of her knee and rates the pain as 7 on the scale of 0-10. Her pain is aggravated with walking, standing, and going upstairs. She has tried ibuprofen for her pain. 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 Review of Systems Const All systems reviewed & are unremarkable except as noted in HPI and below Physical Exam Vital Signs: BMI result Body Mass Index 39.3 Const General: cooperative, healthy appearing, comfortable, no acute distress, well developed and alert Orientation/consciousness: patient oriented x3 HEENT Head: Yes normal to inspection, Yes normocephalic and Yes atraumatic Eyes General: appearance normal, both eyes and all related structures Resp Effort & Inspection: normal respiratory effort and able to speak in complete sentences Cardio Rate: regular rate Peripheral pulses: Peripheral pulses 2+ throughout GI Palpation (GI): Soft to palpation Skin Lesions: no lesions Rashes: no rashes Neuro General: patient oriented x3 Results Reviewed Results Reviewed: Xrays were obtained in the office today and personally reviewed by me of the left knee show lateralization of the patella. Assessment & Plan Assessment & Plan (1) Chondromalacia of patellofemoral joint: Code(s): M22.40 - Chondromalacia patellae, unspecified knee Category: Medical Qualifiers: Laterality: left Qualified Code(s): M22.42 - Chondromalacia patellae, left knee (2) Left knee pain: Code(s): M25.562 - Pain in left knee Category: Medical Plan We discussed options which include PT, NSAIDs and injections. The patient will defer on the injection today and proceed with PT and NSAIDs. She was given a prescription of naproxen to take twice a day for 2 weeks. A Janumet knee brace was also given in the office today. If symptoms persist, she will contact me for an injection, otherwise, PRN.? Orders: Orders XR knee LT 1V Today M25.562 - Pain in left knee PT Evaluation and Treatment Today M22.42 - Chondromalacia patellae, left knee, M25.562 - Pain in left knee Medications: New naproxen 500 mg PO BID 60 tabs 3RF 30 days S93.409A - Sprain of unspecified ligament of unspecified ankle, initial encounter Patient Instructions: Scribed for Abebe Angel PA-C, by Javier Mcdermott medical device sales consultant, on 11/28/2023 at 8:30 AM EST.? I, Abebe Angel PA-C, have personally reviewed and agree with the information entered by the scribe. Coding Level of Care Code New Pt Level 3 (56759) Diagnoses Chondromalacia of left patellofemoral joint M22.42 Laterality: left Left knee pain M25.562
[2023-11-28 08:37] VITALS: BMI 39.3
== END 2023-11-28 09:14 | disposition home or self-care (01) ==
PROVIDERS: Visit Provider Physician Assistant
DX: M22.42 Chondromalacia patellae, left knee (principal); W01.0XXA Fall on same level from slipping, tripping and stumbling without subsequent striking against object, initial encounter; Z04.2 Encounter for examination and observation following work accident
CPT/HCPCS: 99203

== ENCOUNTER 2023-11-28 15:28 | Outpatient (REF) | payer OTHER, SELFPAY ==
--- NOTE | ~2023-11-28 | XR_ITS ---
EXAMINATION: SUNRISE XR VIEW, LEFT KNEE INDICATION: Pain in left knee. TECHNIQUE: Single sunrise view of the left knee. COMPARISON: November 10, 2023. FINDINGS: Asymmetric narrowing along the lateral aspect of the patellofemoral joint on the sunrise view. XR/XR knee LT 1V IMPRESSION: Asymmetric narrowing along the lateral aspect of the patellofemoral joint on the sunrise view.
== END 2023-11-28 15:29 | disposition home or self-care (01) ==
LOC: HO.HOSX 15:28
PROVIDERS: Visit Provider Physician Assistant
DX: M22.42 Chondromalacia patellae, left knee (principal); M25.562 Pain in left knee
CPT/HCPCS: 73560; 99202

== ENCOUNTER 2024-01-03 01:18 | Emergency (ER) | payer OTHER, SELFPAY ==
[2024-01-03 01:20] VITALS: BP 120/71; PULSE 103; RESP 18; TEMP 36.9; O2SAT 96; BMI 39.1
--- NOTE | 2024-01-03 02:30 | ED.BACK ---
HPI - Back Pain/Injury General Chief Complaint: Back Pain/Injury Stated Complaint: lower back pain Time Seen by Provider: 01/03/24 02:21 Source: patient Mode of arrival: ambulatory Limitations: no limitations History of Present Illness ED Provider: jenise STALEY Narrative: Patient complaining of low back pain for last 3 days no history of injury pain is localized more on the left lower back which increases on movementPatient has pain when she urinates no frequency no urgency no hematuria Related Data Previous Rx's ?Medication ?Instructions ?Recorded naproxen 500 mg tablet 500 mg PO BID 30 days #60 tabs 11/28/23 cefuroxime axetil 250 mg tablet 250 mg PO BID 7 days #14 tabs 01/03/24 ibuprofen 600 mg tablet 600 mg PO Q6H PRN fever or pain 01/03/24 #30 tabs terbinafine HCl 1 % topical cream 1 appl topical BID #30 grams 01/03/24 (Antifungal (terbinafine)) Allergies Allergy/AdvReac Type Severity Reaction Status Date / Time No Known Allergies Allergy Verified 01/03/24 01:21 Review of Systems Review of Systems: Yes all other systems are reviewed and are negative [facility] Social History Social History (Updated 11/28/23 @ 08:37 by Ritu Aguirre) Alcohol intake: never Patient Tobacco Use Status: Never used Tobacco Advance Directives: No Advance Directives Information Provided: Yes 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al status: employed 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 Oriented X3. No acute distress. Neck: Normal inspection. Neck supple. CVS: Normal heart rate and rhythm. Pulses normal. Respiratory: No respiratory distress. Equal air entry bilateral, no wheezing/rales/rhonchi Abdomen: Soft and nontender. Bowel sounds are present, no mass palpable, no CVA tenderness diffuse tenderness left lumbar paraspinal area no midline tenderness Skin: Skin warm and dry. Normal skin color. Normal skin turgor. Extremities: No lower extremity edema. No calf tenderness Neuro: Oriented X 3. No motor deficit. Medications Administered Discontinued Medications Generic Name Dose Route Start Last Admin Trade Name Facundoq PRN Reason Stop Dose Admin Cefuroxime Axetil 500 mg 01/03/24 04:45 01/03/24 04:52 Cefuroxime Axetil 500 Mg Tablet PO 01/03/24 04:46 500 mg ONCE ONE Administration Ibuprofen 600 mg 01/03/24 04:45 01/03/24 04:52 Ibuprofen 600 Mg Tablet PO 01/03/24 04:46 600 mg ONCE ONE Administration Medical Decision Making Medical Decision Making [facility] Narrative: Patient's dysuria and low back pain urine positive for WBCs and leukoesterase will treat her with Ceftin and ibuprofen Differential Diagnosis Differential Diagnoses: The differential diagnosis associated with the presentation includes Kidney stone/UTI/musculoskeletal pain Lab Data [facility] Lab Attestation statement: I reviewed the patient's lab results. 01/03/24 04:01 01/03/24 04:01 Labs: Lab Results 01/03/24 01/03/24 Range/Units 03:26 04:01 WBC 7.9 (4.8-10.8) X10*3/uL RBC 4.40 (4.20-5.50) X10*6/uL Hgb 12.0 (12.0-16.0) g/dl Hct 37.0 (37.0-47.0) % MCV 84.1 (80.0-98.0) fL MCH 27.3 (27.0-33.0) pg MCHC 32.4 (31.0-35.0) g/dl RDW 14.8 (11.0-16.0) % Plt Count 211 (160-400) X10*3/uL MPV 10.1 (9.4-12.3) fL Immature Gran % (Auto) 0.4 (0.0-0.4) % Neut % (Auto) 57.9 (45-73) % Lymph % (Auto) 30.8 (20-40) % [place] % (Auto) 8.0 (2-11) % Eos % (Auto) 2.5 (0-4) % Baso % (Auto) 0.4 (0-2) % Lymph # (Auto) 2.4 (1.2-4.9) X10*3/uL [place] # (Auto) 0.6 (0.1-1.2) X10*3/uL Eos # (Auto) 0.2 (0.0-0.4) X10*3/uL Baso # (Auto) 0.0 (0.0-0.2) X10*3/uL Abs Immat Gran (auto) 0.03 (0.00-0.03) X10*3/uL Absolute Neuts (auto) 4.6 (2.0-8.3) x10*3/uL Absolute Nucleated RBC 0.000 (0.0-0.012) X10*3/uL Nucleated RBC % (auto) 0.0 (0.0-0.2) /100WBC Sodium 142 (135-145) mmol/L Potassium 3.8 (3.3-5.1) mmol/L Chloride 110 H (96-108) mmol/L Carbon Dioxide 22 (22-29) mmol/L Anion Gap 14 (12-20) BUN 11 (9-16) mg/dL Creatinine 0.63 (0.5-1.4) mg/dL Estim Creat Clear Calc 150.8 Estimated GFR > 60 Random Glucose 128 H (60-115) mg/dL Calcium 9.2 (8.4-10.2) mg/dL Total Bilirubin 0.1 (0.0-1.0) mg/dL AST 15 (5-31) U/L ALT 13 (0-31) U/L Alkaline Phosphatase 71 (39-117) U/L Total Protein 6.9 (6.5-8.0) g/dL Albumin 3.7 (3.5-5.0) g/dL Urine Color Yellow Urine Appearance Cloudy Urine pH 6.0 (5.0-9.0) Ur Specific [place] 1.025 (1.005-1.025) Urine Protein Negative (Neg-Trace) mg/dL Urine Glucose (UA) Negative (Negative) mg/dL Urine Ketones Negative (Negative) mg/dL Urine Blood Negative (Negative) Urine Nitrite Negative (Negative) Ur Leukocyte Esterase Moderate (2+) H (Negative) Urine RBC 0-2 (0-2) /HPF Urine WBC 11-20 H (0-5) /HPF Ur Squamous Epith Cells 6-10 (0-2) /HPF Urine Bacteria 2+ (None Seen) Hyaline Casts 0-2 (0-2) /LPF Urine Test NEGATIVE (NEGATIVE) Discharge Plan Discharge Clinical Impression: UTI (urinary tract infection), Tinea versicolor Patient Disposition: Home, Self-Care Instructions: Urinary Tract Infection in Women (DC), Tinea Versicolor (ED) Additional Instructions: Drink plenty of fluids Take antibiotic as prescribed Ibuprofen for pain Follow up with PCP if not better Prescriptions: New cefuroxime axetil 250 mg tablet 250 mg PO BID 7 Days Qty: 14 0RF ibuprofen 600 mg tablet 600 mg PO Q6H PRN (Reason: fever or pain) Qty: 30 0RF terbinafine HCl [Antifungal (terbinafine)] 1 % cream 1 appl topical BID Qty: 30 0RF No Action naproxen 500 mg tablet 500 mg PO BID 30 Days Qty: 60 3RF Interventions: ED Discharge Assessment Last Done: 01/03/24 05:04 Discharge Date/Time: 01/03/24 05:05 Print Language: Burmese
[2024-01-03 03:32] LABS: Appearance Urine Cloudy; Color Urine Yellow; Glucose Urine UA Negative (Negative); Leukocyte Esterase Urine Moderate (2+) (Negative); Nitrite Urine Negative (Negative); Specific Gravity - Urine 1.025 (1.005-1.025); UMIC TRIGGER UACC YES; Urine Blood Negative (Negative); Urine Ketones Negative (Negative); Urine Protein Negative (Neg-Trace)
[2024-01-03 03:34] LABS: UPreg QC Valid YES; Urine Pregnancy NEGATIVE (NEGATIVE)
[2024-01-03 03:36] VITALS: BP 111/69; PULSE 93; RESP 17; TEMP 36.8; O2SAT 99
[2024-01-03 03:37] LABS: Bacteria Urine 2+ (None Seen); Hyaline Casts Urine 0-2 /LPF (0-2); RBC Urine 0-2 /HPF (0-2); UACC Culture Trigger YES
[2024-01-03 04:04] LABS: MANUAL DIFF FLAG NO
[2024-01-03 04:05] LABS: Basophils Percent Auto 0.4 % (0-2); Eosinophils Absolute Auto 0.2 X10*3/uL (0.0-0.4); Eosinophils Percent Auto 2.5 % (0-4); Imm Gran Abs Auto 0.03 X10*3/uL (0.00-0.03); Imm Gran Pct Auto 0.4 % (0.0-0.4); Lymphocytes Absolute Auto 2.4 X10*3/uL (1.2-4.9); Lymphocytes Percent Auto 30.8 % (20-40); Mean Corpuscular HGB Conc 32.4 g/dl (31.0-35.0); Mean Corpuscular Hemoglobin 27.3 pg (27.0-33.0); Mean Corpuscular Volume 84.1 fL (80.0-98.0); Mean Platelet Volume 10.1 fL (9.4-12.3); Monocytes Absolute Auto 0.6 X10*3/uL (0.1-1.2); Neutrophils Absolute Auto 4.6 x10*3/uL (2.0-8.3); Neutrophils Percent Auto 57.9 % (45-73); Platelet Count 211 X10*3/uL (160-400); Red Cell Distribution Width 14.8 % (11.0-16.0); White Blood Count 7.9 X10*3/uL (4.8-10.8)
[2024-01-03 04:18] LABS: Alanine Aminotransferase 13 U/L (0-31); Albumin Level 3.7 g/dL (3.5-5.0); Alkaline Phosphatase 71 U/L (39-117); Anion Gap 14 (12-20); Aspartate Amino Transferase 15 U/L (5-31); Bilirubin Total 0.1 mg/dL (0.0-1.0); Blood Urea Nitrogen 11 mg/dL (9-16); Calcium 9.2 mg/dL (8.4-10.2); Carbon Dioxide 22 mmol/L (22-29); Chloride 110 mmol/L (96-108); Creatinine Clr Calc Pharmacy 150.8; Estimated Glomerular Filt Rate > 60; Glucose Random 128 mg/dL (60-115); Potassium 3.8 mmol/L (3.3-5.1); Sodium 142 mmol/L (135-145); Total Protein 6.9 g/dL (6.5-8.0)
[2024-01-03 04:52] VITALS: BP 111/70; PULSE 84; RESP 16; TEMP 36.7; O2SAT 96
[2024-01-03] MEDS: cefuroxime axetiL 500 MG TABLET PO (04:52)
[2024-01-03] MEDS: Ibuprofen 600 MG TABLET PO (04:52)
[2024-01-03 05:04] VITALS: BP 111/70; PULSE 84; RESP 16; TEMP 36.7; O2SAT 96
== END 2024-01-03 05:05 | disposition home or self-care (01) ==
PROVIDERS: Emergency Provider Internal Medicine
DX: N39.0 Urinary tract infection, site not specified (principal); B36.0 Pityriasis versicolor; M54.50 Low back pain, unspecified; R30.9 Painful micturition, unspecified; Z79.899 Other long term (current) drug therapy
CPT/HCPCS: 36415; 80053; 81001; 81025; 85025; 87086; 99283; 99284

== ENCOUNTER 2024-01-16 18:25 | Emergency (ER) | payer OTHER, SELFPAY ==
[2024-01-16 18:38] VITALS: BP 109/68; PULSE 76; RESP 16; TEMP 36.6; O2SAT 98; BMI 39.8
--- NOTE | 2024-01-16 18:41 | ED.LOWEXIN ---
HPI - Extremity Injury (Lower) General Chief Complaint: Extremity Injury, Lower Stated Complaint: left knee inj Time Seen by Provider: 01/16/24 18:51 Source: patient and RN notes reviewed Mode of arrival: ambulatory Limitations: no limitations History of Present Illness ED Provider: Norma Etienne PA-C HPI Narrative: This is a [id number]-female who presents to the ER with complaints of left knee pain. Pt states that she has had left knee pain since august after a slip and fall at work. She has had no recent injury or trauma. She was seen by the orthopedic team, diagnosed with chondromalacia of the patellofemoral joint and was referred to physical therapy, which she did not attend. Reports pain worsens with movement and weight bearing. No fevers or chills. She has tried OTC motrin which provides her with minimal relief. No other complaints or concerns at this time. MD complaint: knee injury Onset (ago): month(s) Severity: moderate Relieving factors: nothing Exacerbating factors: weight bearing and movement Other symptoms: none Related Data Previous Rx's ?Medication ?Instructions ?Recorded naproxen 500 mg tablet 500 mg PO BID 30 days #60 tabs 11/28/23 cefuroxime axetil 250 mg tablet 250 mg PO BID 7 days #14 tabs 01/03/24 ibuprofen 600 mg tablet 600 mg PO Q6H PRN fever or pain 01/03/24 #30 tabs terbinafine HCl 1 % topical cream 1 appl topical BID #30 grams 01/03/24 (Antifungal (terbinafine)) acetaminophen 500 mg tablet 500 mg PO Q6H PRN pain #30 tabs 01/16/24 (Tylenol Extra Strength) naproxen 375 mg tablet 375 mg PO BID PRN pain #30 tabs 01/16/24 Allergies Allergy/AdvReac Type Severity Reaction Status Date / Time No Known Allergies Allergy Verified 01/16/24 18:38 Review of Systems Review of Systems: Yes all other systems are reviewed and are negative Constitutional: Constitutional: Reports as per [facility] Past Medical History Attestation statement: The following information was validated with the patient. 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 Physical Exam Vital Signs: Vital Signs: Last Vital Signs Temp 97.8 F 01/16/24 18:38 Pulse 76 01/16/24 18:38 Resp 16 01/16/24 18:38 BP 109/68 01/16/24 18:38 Pulse Ox 98 01/16/24 18:38 O2 Del Method Room Air 01/16/24 18:38 BMI result Body Mass Index 39.8 Const: General: cooperative, comfortable and no acute distress Orientation/consciousness: patient oriented x3 Limitations: no limitations HEENT: Head: Yes normal to inspection, Yes normocephalic and Yes atraumatic Ears: hearing grossly normal bilaterally General nose exam: Normal external nose present Face and sinus: Yes normal facial exam Mouth: Normal oral and palatal mucosa present, oropharynx normal and moist mucous membranes Throat: Yes posterior oropharynx normal Eyes: General: appearance normal, both eyes and all related structures Eyelids: Yes eyelids normal Conjunctivae: conjunctivae normal Sclerae: sclerae normal Pupils: Equal, round and reactive pupils present EOM: EOMs intact bilaterally Neck: Neck: Yes normal visual inspection, Yes full ROM and Yes no lymphadenopathy Lymphatic: no lymphadenopathy noted Chest: Chest palpation & inspection: normal inspection of the chest Resp: Effort & Inspection: normal respiratory effort and able to speak in complete sentences Auscultation: clear to auscultation bilaterally, no crackles, no rales, no rhonchi and no wheezes Cardio: Rate: regular rate Rhythm: regular rhythm Heart sounds: S1 normal heart sound present and S2 normal heart sound present GI: Inspection: Yes normal to inspection Skin: General skin exam: no rashes or lesions noted Trauma: no lacerations or abrasions Wounds: no wounds Neuro: General: patient oriented x3 and moves all extremities Cranial nerves: Yes Equal, round and reactive pupils present Extrem: Other: Left knee without any obvious bony deformity or swelling. No ttp. Negative varus and valgus strain. Neg anterior and posterior drawer test General: Yes normal to inspection Right upper extremity: normal to inspection Left upper extremity: normal to inspection Right lower extremity: normal to inspection Left lower extremity: normal to inspection Medical Decision Making Medical Decision Making MDM Narrative: This is a [id number]-female with no known medical problems, who presents to the ER with complaints of left knee pain. No trauma or injury. Seen by orthopedics and was told to go to PT for further treatment which she did not attend. Given she has a normal physical exam, with no new injury, repeat xrays not indicated at this time. advised to f/u with ortho and encouraged to go to PT as this can be immensely helpful for her symptoms. She understands and agrees with plan. Pt stable for d.c. Differential Diagnosis Differential Diagnoses: The differential diagnosis associated with the presentation includes sprain, strain, contusion, fx, patellafemoral syndrome, chrondromalacia Radiology Impression Radiologist Impression: External Record Review External record reviewed: Prior outpatient radiology Prior xrays revealing Asymmetric narrowing along the lateral aspect of the patellofemoral joint on the sunrise view. Discharge Plan Discharge Clinical Impression: Left knee pain Patient Disposition: Home, Self-Care Instructions: Knee Pain (ED), Arthralgia (ED), Patellofemoral Pain Syndrome Exercises (ED) Additional Instructions: You were seen in the emergency department for left knee pain. You need to follow-up with the orthopedic team, call tomorrow to make an appointment. Alternate between naproxen, and Tylenol for pain. Rest, ice, elevate, and use Bentley wrap. If any new or worsening symptoms occur including but not limited to worsening pain, chest pain, shortness breast, please return for re-evaluation. Prescriptions: New acetaminophen [Tylenol Extra Strength] 500 mg tablet 500 mg PO Q6H PRN (Reason: pain) Qty: 30 0RF naproxen 375 mg tablet 375 mg PO BID PRN (Reason: pain) Qty: 30 0RF No Action cefuroxime axetil 250 mg tablet 250 mg PO BID 7 Days Qty: 14 0RF ibuprofen 600 mg tablet 600 mg PO Q6H PRN (Reason: fever or pain) Qty: 30 0RF terbinafine HCl [Antifungal (terbinafine)] 1 % cream 1 appl topical BID Qty: 30 0RF naproxen 500 mg tablet 500 mg PO BID 30 Days Qty: 60 3RF Referrals: [facility] [place] Orthopedic Surgeons [Provider Group] Stand Alone Forms: Work/School Release Discharge Date/Time: 01/16/24 19:00 Print Language: Syrian
== END 2024-01-16 19:00 | disposition home or self-care (01) ==
PROVIDERS: Emergency Provider Emergency Medicine
DX: M25.562 Pain in left knee (principal)
CPT/HCPCS: 99281; 99283

== ENCOUNTER 2024-10-08 13:54 | Emergency (ER) | payer MEDICAID, SELFPAY ==
--- NOTE | ~2024-10-08 | CT_ITS ---
CLINICAL HISTORY: L sided abd pain, back pain, urinary sxs CT of the abdomen and pelvis utilizing intravenous contrast. No comparison. Findings: The liver and gallbladder are unremarkable. No hydronephrosis. There is mild motion artifact. Spleen size upper limits of normal. The pancreas is unremarkable. No definite diverticulitis is identified. There is increased fluid in the bowel without obstruction. The appendix is upper limits of normal in size measuring up to 8 mm. This is indeterminate. The bladder is unremarkable. Dominant follicle in the right ovary. No significant free fluid is seen. Impression: Appendix upper limits of normal in size. This is indeterminate. Early appendicitis is a possibility although no significant adjacent inflammatory changes are seen. Follow-up as clinically warranted. Increased fluid in the bowel without obstruction. Mesenteric adenopathy presumably reactive. This document has been electronically signed by: Rio Munoz MD on 10/08/2024 18:41:39
[2024-10-08 14:19] VITALS: BP 112/76; PULSE 111; RESP 18; TEMP 37.3; O2SAT 94; BMI 41.5
--- NOTE | 2024-10-08 14:24 | ED_ITS ---
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 Patient reports that yesterday she developed abdominal pain, back pain and burning with urination. She also reports urinary frequency, urgency. She also reports nausea, vomiting and diarrhea. Denies any sick contacts. Denies history of urinary tract infections in the past. Denies any recent injury to her back. Denies taking any medications prior to her arrival. She was not sexually active, denies concerns for sexually transmitted infections. No abnormal vaginal discharge or bleeding. No other complaints or concerns at this time. MD complaint: Back pain, abdominal pain, urinary symptoms Onset (ago): day(s) Severity: moderate Quality: burning Pain Consistency: constant Relieving factors: none Exacerbating factors: none Associated symptoms: denies other symptoms Treatments prior to arrival: none Related Data Previous Rx's ?Medication ?Instructions ?Recorded naproxen 500 mg tablet 500 mg PO BID 30 days #60 tabs 11/28/23 cefuroxime axetil 250 mg tablet 250 mg PO BID 7 days #14 tabs 01/03/24 ibuprofen 600 mg tablet 600 mg PO Q6H PRN fever or pain 01/03/24 #30 tabs terbinafine HCl 1 % topical cream 1 appl topical BID #30 grams 01/03/24 (Antifungal (terbinafine)) acetaminophen 500 mg tablet 500 mg PO Q6H PRN pain #30 tabs 01/16/24 (Tylenol Extra Strength) naproxen 375 mg tablet 375 mg PO BID PRN pain #30 tabs 01/16/24 cefpodoxime 200 mg tablet 200 mg PO BID 10 days #20 tabs 10/08/24 ondansetron 4 mg disintegrating 4 mg PO Q6H PRN nausea and 10/08/24 tablet vomiting #10 tabs Allergies Allergy/AdvReac Type Severity Reaction Status Date / Time No Known Allergies Allergy Verified 10/08/24 14:23 Review of Systems 2 Review of Systems: Yes all other systems are reviewed and are negative Constitutional: Constitutional: Reports as per HPI [facility] Social History Social History Alcohol intake: never Patient Tobacco Use Status: Never used Tobacco 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al status: employed 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: [employer]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 Physical Exam ED Vital Signs: Vital Signs - 24 hr 10/08/24 20:46 Temperature 98.5 F Pulse Rate 97 Respiratory Rate 16 Blood Pressure 111/61 Pulse Oximetry 99 Oxygen Delivery Method Room Air BMI result Body Mass Index 41.5 Const General: cooperative, comfortable and no acute distress Orientation/consciousness: patient oriented x3 Limitations: no limitations HENMT Head: Yes normal to inspection, Yes normocephalic and Yes atraumatic Ears: hearing grossly normal bilaterally General nose exam: Normal external nose present Face and sinus: Yes normal facial exam Mouth: Normal oral and palatal mucosa present, oropharynx normal and moist mucous membranes Throat: Yes posterior oropharynx normal Eyes General: appearance normal, both eyes and all related structures Eyelids: Yes eyelids normal Conjunctivae: conjunctivae normal Sclerae: sclerae normal Pupils: Equal, round and reactive pupils present EOM: EOMs intact bilaterally Neck Neck: Yes normal visual inspection, Yes full ROM and Yes no lymphadenopathy Lymphatic: no lymphadenopathy noted Chest Chest palpation & inspection: normal inspection of the chest Resp Effort & Inspection: normal respiratory effort and able to speak in complete sentences Auscultation: clear to auscultation bilaterally, no crackles, no rales, no rhonchi and no wheezes Cardio Rate: regular rate Rhythm: regular rhythm Heart sounds: S1 normal heart sound present and S2 normal heart sound present GI Other: Abdomen is soft, with tenderness palpation in the left mid quadrant, no rebound or guarding. Mild suprapubic tenderness to palpation. Inspection: Yes normal to inspection Other: No CVA tenderness. Skin General skin exam: no rashes or lesions noted Trauma: no lacerations or abrasions Wounds: no wounds Neuro General: patient oriented x3 and moves all extremities Cranial nerves: Yes Equal, round and reactive pupils present Extrem General: Yes normal to inspection Right upper extremity: normal to inspection Left upper extremity: normal to inspection Right lower extremity: normal to inspection Left lower extremity: normal to inspection Course Course Course Narrative: This is a rapid medical exam performed by C. Rupinder, DOLL EYE SETTER: Additional HPI, ROS, PE not included below will be deferred to primary provider. Patient is a 23-year-old female presenting with complaint of generalized abdominal pain, nausea, vomiting, diarrhea since yesterday. Also complains of backache and headache. Mildly tachycardic, O2 93-94% on room air in triage. Patient reports history of asthma. Plan: Viral panel, labs, UA Reevaluation(s) Reevaluation #1: CAT scan showed appendix upper limits of normal, she was no right lower quadrant pain. There is no adjacent inflammatory seen. Given that she has no tenderness in this area, unlikely however patient was educated on strict return precautions. Patient's symptoms consistent with a urinary tract infection and possible pyelonephritis. She was discharged on antibiotics and given strict return precautions. Patient stable for discharge. Medications Administered Discontinued Medications Generic Name Dose Route Start Last Admin Trade Name Freq PRN Reason Stop Dose Admin Ceftriaxone Sodium 1 gm 10/08/24 17:30 10/08/24 18:20 Ceftriaxone Sodium 1 Gm Vial IVPUSH 10/08/24 17:31 1 gm ONCE ONE Administration Sodium Chloride 1,000 mls @ 999 mls/hr 10/08/24 17:31 10/08/24 17:44 Ns IV 10/08/24 18:31 999 mls/hr .Q1H1M ONE Administration Iohexol 100 ml 10/08/24 18:01 10/08/24 18:02 Iohexol 350 Mg/Ml 100 Ml Infus..Btl IV 10/08/24 18:02 85 ml ONCE ONE Administration Ketorolac Tromethamine 15 mg 10/08/24 17:31 10/08/24 17:43 Ketorolac Tromethamine 15 Mg/Ml Vial IVPUSH 10/08/24 17:32 15 mg ONCE ONE Administration Ondansetron HCl 4 mg 10/08/24 17:31 10/08/24 17:44 Ondansetron Hcl 4 Mg/2 Ml Vial IVPUSH 10/08/24 17:32 4 mg ONCE ONE Administration Medical Decision Making Medical Decision Making MDM Narrative: This is a 23-year-old Israeli-speaking female, with no known medical problems, who presents emergency department with concerns for urinary symptoms, back pain and belly pain which started yesterday. Patient also endorses nausea and vomiting. On arrival, patient well-appearing, under no acute distress. Abdomen is soft with mild tenderness palpation in the suprapubic region as well as the left mid quadrant. No rebound or guarding. She does report urinary symptoms, urine collected today with high specific gravity, proteinuria, moderate leuk esterases, and wbc's. This is not a great clean-catch urine sample therefore will attempt to get a 2nd. She does not have any CVA tenderness, tenderness within the mid back, with no obvious muscle strain or spasm. Differential diagnoses include pyelonephritis, UTI, electrolyte derangement, diverticulitis, diverticulosis. Will start on IV fluids, Zofran, and antibiotics. Also ordering CT abdomen and pelvis to rule out any acute process given diarrhea, no CVA tenderness, with tenderness palpation in the mid left abdomen, this is not a straight forward renal colic therefore IV contrast was utilized. Differential Diagnosis Differential Diagnoses: The differential diagnosis associated with the presentation includes See above Admission/Observation Consideration of admission/observation: Escalation of care including admission/observation considered Lab Data MDM Lab Attestation statement: I reviewed the patient's lab results. See MDM and course 10/08/24 14:41 10/08/24 14:41 Labs: Lab Results 10/08/24 10/08/24 Range/Units 14:41 16:56 WBC 6.9 (4.8-10.8) X10*3/uL RBC 4.60 (4.20-5.50) X10*6/uL Hgb 12.5 (12.0-16.0) g/dl Hct 38.5 (37.0-47.0) % MCV 83.7 (80.0-98.0) fL MCH 27.2 (27.0-33.0) pg MCHC 32.5 (31.0-35.0) g/dl RDW 14.2 (11.0-16.0) % Plt Count 221 (160-400) X10*3/uL MPV 10.1 (9.4-12.3) fL Immature Gran % (Auto) 0.4 (0.0-0.4) % Neut % (Auto) 77.2 H (45-73) % Lymph % (Auto) 14.3 L (20-40) % [place] % (Auto) 7.9 (2-11) % Eos % (Auto) 0.1 (0-4) % Baso % (Auto) 0.1 (0-2) % Lymph # (Auto) 1.0 L (1.2-4.9) X10*3/uL [place] # (Auto) 0.5 (0.1-1.2) X10*3/uL Eos # (Auto) 0.0 (0.0-0.4) X10*3/uL Baso # (Auto) 0.0 (0.0-0.2) X10*3/uL Abs Immat Gran (auto) 0.03 (0.00-0.03) X10*3/uL Absolute Neuts (auto) 5.3 (2.0-8.3) x10*3/uL Absolute Nucleated RBC 0.000 (0.0-0.012) X10*3/uL Nucleated RBC % (auto) 0.0 (0.0-0.2) /100WBC Sodium 137 (135-145) mmol/L Potassium 3.6 (3.3-5.1) mmol/L Chloride 105 (96-108) mmol/L Carbon Dioxide 23 (22-29) mmol/L Anion Gap 13 (12-20) BUN 8 L (9-16) mg/dL Creatinine 0.70 (0.5-1.4) mg/dL Estim Creat Clear Calc 145.9 Estimated GFR > 60 Random Glucose 101 (60-115) mg/dL Calcium 8.7 (8.4-10.2) mg/dL Magnesium 1.8 (1.6-2.6) mg/dL Total Bilirubin 0.6 (0.0-1.0) mg/dL AST 29 (5-31) U/L ALT 31 (0-31) U/L Alkaline Phosphatase 68 (39-117) U/L Total Protein 7.2 (6.5-8.0) g/dL Albumin 3.8 (3.5-5.0) g/dL Lipase 23 (8-78) U/L Beta HCG, Quant < 2 mIU/mL Urine Color Dark Yellow Urine Appearance Turbid Urine pH 6.0 (5.0-9.0) Ur Specific [place] >= 1.030 H (1.005-1.025) Urine Protein 30 (1+) H (Neg-Trace) mg/dL Urine Glucose (UA) Negative (Negative) mg/dL Urine Ketones 15 (Negative) mg/dL Urine Blood Negative (Negative) Urine Nitrite Negative (Negative) Ur Leukocyte Esterase Moderate (2+) H (Negative) Urine RBC 0-2 (0-2) /HPF Urine WBC 11-20 (0-5) /HPF Ur Squamous Epith Cells >20 (0-2) /HPF Urine Bacteria 4+ (None Seen) Hyaline Casts 3-5 (0-2) /LPF Influenza Type A (PCR) NEGATIVE (Negative) Influenza Type B (PCR) NEGATIVE (Negative) RSV RNA Qual (PCR) NEGATIVE (Negative) SARS-CoV-2 RNA (RT-PCR) NEGATIVE (Negative) Radiology Impression Discussion of test interpretation with radiology: I have reviewed the radiologist's reading. External Record Review External record reviewed: Inpatient record, Office record, Outpatient record, Prior outpatient labs, Prior outpatient radiology, Primary care record and Outside ED record Discharge Plan Discharge Clinical Impression: Urinary tract infection Patient Disposition: Home, Self-Care Instructions: Urinary Tract Infection in Women (ED) Additional Instructions: You were seen in the emergency department in your urine is concerning for urinary tract infection. We medicated you with IV fluids, Toradol (which is a pain medication), and Zofran (antinausea medication). Please take prescribed antibiotic as directed, finish the entire course even if your symptoms improve. Drink plenty of fluids get plenty of rest. Your CT scan was reassuring. You do have some inflammatory changes which is likely due to the UTI and virus. If any new or worsening symptoms occur including but not limited to severe chest pain, shortness of breath, please seek emergent care. Prescriptions: New cefpodoxime 200 mg tablet 200 mg PO BID 10 Days Qty: 20 0RF Rx Instructions: must administer with a meal/food ondansetron 4 mg tablet,disintegrating 4 mg PO Q6H PRN (Reason: nausea and vomiting) Qty: 10 0RF No Action acetaminophen [Tylenol Extra Strength] 500 mg tablet 500 mg PO Q6H PRN (Reason: pain) Qty: 30 0RF naproxen 375 mg tablet 375 mg PO BID PRN (Reason: pain) Qty: 30 0RF cefuroxime axetil 250 mg tablet 250 mg PO BID 7 Days Qty: 14 0RF ibuprofen 600 mg tablet 600 mg PO Q6H PRN (Reason: fever or pain) Qty: 30 0RF terbinafine HCl [Antifungal (terbinafine)] 1 % cream 1 appl topical BID Qty: 30 0RF naproxen 500 mg tablet 500 mg PO BID 30 Days Qty: 60 3RF Interventions: ED Discharge Assessment Last Done: 10/08/24 20:46 Discharge Date/Time: 10/08/24 20:47 Print Language: Israeli
[2024-10-08 14:50] LABS: MANUAL DIFF FLAG NO
[2024-10-08 14:52] LABS: Basophils Percent Auto 0.1 % (0-2); Eosinophils Percent Auto 0.1 % (0-4); Hematocrit 38.5 % (37.0-47.0); Hemoglobin 12.5 g/dl (12.0-16.0); Imm Gran Abs Auto 0.03 X10*3/uL (0.00-0.03); Imm Gran Pct Auto 0.4 % (0.0-0.4); Lymphocytes Percent Auto 14.3 % (20-40); Mean Corpuscular HGB Conc 32.5 g/dl (31.0-35.0); Mean Corpuscular Hemoglobin 27.2 pg (27.0-33.0); Mean Corpuscular Volume 83.7 fL (80.0-98.0); Mean Platelet Volume 10.1 fL (9.4-12.3); Monocytes Absolute Auto 0.5 X10*3/uL (0.1-1.2); Monocytes Percent Auto 7.9 % (2-11); Neutrophils Absolute Auto 5.3 x10*3/uL (2.0-8.3); Neutrophils Percent Auto 77.2 % (45-73); Platelet Count 221 X10*3/uL (160-400); Red Cell Distribution Width 14.2 % (11.0-16.0); White Blood Count 6.9 X10*3/uL (4.8-10.8)
[2024-10-08 15:12] LABS: Alanine Aminotransferase 31 U/L (0-31); Albumin Level 3.8 g/dL (3.5-5.0); Alkaline Phosphatase 68 U/L (39-117); Anion Gap 13 (12-20); Aspartate Amino Transferase 29 U/L (5-31); Bilirubin Total 0.6 mg/dL (0.0-1.0); Blood Urea Nitrogen 8 mg/dL (9-16); Calcium 8.7 mg/dL (8.4-10.2); Carbon Dioxide 23 mmol/L (22-29); Chloride 105 mmol/L (96-108); Creatinine Clr Calc Pharmacy 145.9; Estimated Glomerular Filt Rate > 60; Glucose Random 101 mg/dL (60-115); Lipase 23 U/L (8-78); Magnesium 1.8 mg/dL (1.6-2.6); Potassium 3.6 mmol/L (3.3-5.1); Sodium 137 mmol/L (135-145); Total Protein 7.2 g/dL (6.5-8.0)
[2024-10-08 15:13] LABS: HCG Quantitative < 2 mIU/mL
[2024-10-08 15:31] LABS: Influenza A PCR NEGATIVE (Negative); Influenza B PCR NEGATIVE (Negative); Resp Syncy Virus RNA Qual PCR NEGATIVE (Negative); SARS COV2 PCR INHOUSE NEGATIVE (Negative)
[2024-10-08 17:04] LABS: Appearance Urine Turbid; Color Urine Dark Yellow; Glucose Urine UA Negative (Negative); Leukocyte Esterase Urine Moderate (2+) (Negative); Nitrite Urine Negative (Negative); Specific Gravity - Urine >= 1.030 (1.005-1.025); UMIC TRIGGER UACC YES; Urine Blood Negative (Negative); Urine Ketones 15 mg/dL (Negative); Urine Protein 30 (1+) mg/dL (Neg-Trace)
[2024-10-08 17:05] VITALS: BP 105/58; PULSE 102; RESP 16; TEMP 36.3; O2SAT 95
--- OUTSIDE RECORDS SUMMARY | 2024-10-08 17:42 | XMS_ITS | Clinical Summary ---
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 Operator Name Role Phone Unavailable Primary Care Provider Unavailabl e Social History Tobacco Use Types Packs/Day Years Used Date Smoking Tobacco: Never Assessed Comments Unknown Sex and Gender Information Value Date Recorded Sex Assigned at Female 04/19/2022 10:37 AM EDT Legal Sex Female 10:37 AM EDT Gender Identity Not on file Sexual Orientation Not on file Plan of Treatment Health Maintenance Due Date Last Done Comments Chlamydia and Gonorrhea Screening 2000 Depression Screening 2000 Alcohol/Substance Use Screening 2012 Tobacco Screening 2012 Family Planning (PISQ) 12/06/2015 HPV Vaccines (1 - 3-dose series) 12/06/2015 DTaP/Tdap/Td Vaccines (1 - Tdap) 12/06/2019 Hepatitis B Vaccines (1 of 3 - 19+ 3-dose series) 12/06/2019 Pap Smear 2021 COVID-19 Vaccine (1 - 2023-2 5 season) 2024 Influenza Vaccine (#1) 2024 Zoster Vaccines (1 of 2) 2050 RSV Patients and Pa tients Aged 60 years or older (1 - 1-dose 75+ series) 12/06/2075 HIB Vaccines Aged Out No longer eligi ble based on patient's age to complete this topic Hepatitis A Vaccines Aged Out No long er eligible based on patient's age to complete this topic IPV Vaccines Aged Out No longer eligi ble based on patient's age to complete this topic Meningococcal Vaccine Aged Out No chay craig eligible based on patient's age to complete this topic Pneumococcal Vaccine: Pediat rics (0 to 5 Years) and At-Risk Patients (6 to 49) Years) Aged Out No longer eligible b ased on patient's age to complete this topic RSV under 20 months Aged Out No longe r eligible based on patient's age to complete this topic Rotavirus Vaccines Aged Out No longer eligible based on patient's age to complete this topic
--- OUTSIDE RECORDS SUMMARY | 2024-10-08 17:42 | XMS_ITS | Encounter Summary ---
Author Organization [employer] Address [address] [facility] [facility] [address] [place] [address] Care Team Providers Care Confectionery Maker Name Role Phone Analia Juarez Primary Care Provider [phone] Reason for Visit * Reason Onset Date Comments Nurse Triage 03/22/2023 Encounter Details Date Type Department Care Team (Late st Contact Info) Description 03/22/2023 Telephone [facility] [address] [place] [address] Analia Juarez FNP [address] [place], [place] [id number] Nurse Triage Social History Tobacco Use Types Packs/Day Years Used Date Smoking Tobacco: Never Assessed Comments Unknown Sex and Gender Information Value Date Recorded Sex Assigned at Female 04/19/2022 10:37 AM EDT Legal Sex Female 10:37 AM EDT Gender Identity Not on file Sexual Orientation Not on file documented as of this encounter Miscellaneous Notes * Telephone Encounter - Paris Christine RN - 03/22/2023 1:23 PM EDT Triage call with Satartia Secretary Receptionist ID [id number] Pt reports headache and abdominal pain for months now. Abdominal pain is below the umbilicus in thearea of the ovaries. Pt reports that Period last month was early and has never had that happen before. Pt also reports headaches for some time. Pt has not taken medication for this and is advised to use tylenol/motrin for headaches. Pt reports adequate liquids of 3-4 bottles of water daily and is advised to increase liquids to 6-8 glasses daily and Pt agrees. Pt is neg for fever, nausea, vomitingdiarrhea. Pt is going about normal activitiy. Pt is advised to [facility] today to be seen by provider and Pt agrees. Pt is requesting an apt with PCP , who Pt reports has never seen yet, and wants aPE apt. Advised to call nursing team for this apt and Pt agrees. Pt agrees with disposition. Protocol Used: Abdominal Pain - Female (Adult) Protocol-Based Disposition: See in Office or Video Visit Today or Tomorrow Positive Triage Question: * Mild pain (e.g., does not interfere with normal activities) and pain comes and goes (cramps) lasts > 48 hours (Exception: This same abdominal pain is a chronic symptom recurrent or ongoing AND present > 4 weeks.) * All higher-acuity triage questions were negative Care Advice Discussed: * Reassurance and Education - Stomach Pain * Rest * Drink Clear Fluids * Reasons To Call Back - Severe pain lasts over 1 hour - Constant pain lasts over 2 hours - Intermittent pains (e.g., comes and goes, cramps) lasts over 48 hours - You are - You become worse * Telephone Encounter - Marilee Yusuf - 03/22/2023 12:50 PM EDT Tc from pt returning call. Chinese Speaker * Telephone Encounter - Maureen Bailey RN - 03/22/2023 11:43 AM EDT Call returned to Angelic Nava for triage. No answer LVM to return call to [facility] triage line [phone]. * Telephone Encounter - Dory Barnett - 03/22/2023 10:54 AM EDT Symptoms: Headache, Abdominal Pain - Female - Not Outcome: Schedule an urgent appointment (within 4 hours) or talk to a nurse or provider soon Reason: Getting worse The caller accepted this outcome Please contact pt at [phone] documented in this encounter Plan of Treatment Not on file documented as of this encounter Visit Diagnoses Not on filedocumented in this encounter Care Teams Confectionery Maker Relationship Specialty Start Date End Date Analia Juarez FNP [address] [place] [id number] PCP - General Family Medicine 11/26/21 07/24/23 documented as of this encounter
--- OUTSIDE RECORDS SUMMARY | 2024-10-08 17:42 | XMS_ITS | Clinical Summary ---
Author Organization [facility] Address [address] [place] [phone] Phone Care Team Providers Care Car Sales Consultant Name Role Phone Rupinder Andino MD Primary Care Provider [phone] Allergies No known active allergies Medications No known medications Active Problems Problem Noted Date Diagnosed Date Asthma 04/18/2024 Encounters Date Type Department Care Team Description 10/03/2024 7:00 AM EDT Treatment [facility] [address] [phone] Shantel Jones, PT Chronic pain of left knee (Primary Dx) 09/26/2024 4:00 PM EDT Treatment [facility] [address] [phone] 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, 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 Chronic pain of left knee (Primary Dx) 09/19/2024 4:15 PM EDT Treatment [facility] [address] [phone] 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, 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 Chronic pain of left knee (Primary Dx) 09/06/2024 5:00 PM EDT Treatment [facility] [address] [phone] Shantel Jones, PT Chronic pain of left knee (Primary Dx) 09/05/2024 4:47 PM EDT - 09/05/2024 11:59 PM EDT Hospital Encounter Radiology Department - [address] [phone] Pelvic pain Discharge Disposition: Home or Self Care 08/31/2024 10:00 AM EDT Evaluation [facility] [address] [phone] Shantel Jones PT Chronic pain of left knee 08/28/2024 Telephone Obstetrics and Gynecology - [address] [phone] Tita Marin MA Results 08/20/2024 4:43 PM EST - 08/20/2024 11:59 PM EST Hospital Encounter Radiology Department - [address] [phone] Pelvic pain Discharge Disposition: Home or Self Care 08/16/2024 10:30 AM EST Office Visit Obstetrics and Gynecology - [address] [phone] F[place] Jay CNM Encounter for gynecological examination without abnormal finding (Primary Dx); Screening for cervical cancer; Pelvic pain 08/09/2024 11:45 AM EST Office Visit Orthopedic Surgery [facility] [address] [phone] Sheri Brandon MD Chronic pain of left knee (Primary Dx) 07/21/2024 8:25 AM EST - 07/21/2024 11:59 PM EST Hospital Encounter [facility] MRI [address] [place] [phone] Chronic pain of left knee Discharge Disposition: Home or Self Care 07/17/2024 11:30 AM EST Consult Orthopedic Surgery [facility] [address] [phone] Sheri Brandon MD Chronic pain of left knee from Last 3 Months Surgical History Surgery Date Site/Laterality Comments RIGHT OOPHORECTOMY For Ovarian Cyst at age if 14 years Medical History Medical History Date Comments Patient denies medical problems Mild intermittent asthma Family History Medical History Relation Name Comments Hypertension Mother Breast cancer Neg Hx Ovarian cysts Neg Hx Uterine cancer Neg Hx Relation Name Status Comments Father Alive Maternal Grandfather Alive Maternal Grandmother Alive Mother Alive Paternal Grandfather Paternal Grandmother Social History Tobacco Use Types Packs/Day Years Used Date Smoking Tobacco: Never Passive Smoke Exposure: Never Smokeless Tobacco: Never Alcohol Use Standard Drinks/Week Comments Not Currently 0 (1 standard drink = 0.6 oz pur e alcohol) Housing Instability Answer Date Recorde d Are you worried that in the next 2 months you may not have stable housing? No 06/28/2024 Food Access & Nutrition Answer Date Rec orded Do you have access to a vari ety of food including fruits and vegetables? Yes 06/28/2024 Health Literacy Answer Date Recorded How often do you need to hav e someone help you when you read instructions, pamphlets, or other written material from your doctor or pharmacy? Never 06/28/2024 Caregiver: How often do you need to have someone help you when you read instructions, pamphlets, or other written material from your doctor or pharmacy? Not on file 06/28/2024 Financial Risk Answer Date Recorded How hard is it for you to pa y for the very basics like food, housing, medical care, and air conditioning / heating? Not very hard 06/28/2024 Transportation Answer Date Recorded Has the lack of transportati on kept you from meetings, work, or from getting things needed for daily living? No Has the lack of transportati on kept you from medical appointments or from getting medications? No 06/28/2024 Social Isolation Answer Date Recorded How often do you feel lonely or isolated from th ose around you? Never 06/28/2024 Food Risk Answer Date Recorded Within the past 12 months we worried whether our food would run out before we got money to buy more. Never true 06/28/2024 Within the past 12 months th e food we bought just didn't last and we didn't have money to get more. Never true 06/28/2024 Dependent Care Answer Date Recorded Do you need help finding or paying for care for your loved ones. For example, child health associate or elderly care for an older adult? No 06/28/2024 Education Answer Date Recorded Do you think completing more education or training, like finishing a GED, going to college, or learning a trade, would be helpful for you? No 06/28/2024 Living Situation Answer Date Recorded What is your living situation? 0 06/28/2024 Comments No Sex and Gender Information Value Date Recorded Sex Assigned at Not on file Legal Sex Female 1:37 PM EDT Gender Identity Not on file Sexual Orientation Not on file Obstetrics History Para Term AB IAB SAB Ectopic Multiple Livin g Live Births 3 2 2 0 1 1 0 0 0 2 2 Date Outcome GA Total Labor Labor/2nd/3rd Weight Sex Type Anes PTL Zuleima A1 A5 Name Clin Term Vag-S pont Living Term Vag-S pont Living IAB Last Filed Vital Signs Vital Sign Reading Time Taken Comments Blood Pressure 112/84 08/16/2024 10:44 AM EST Pulse 88 08/16/2024 10:44 AM EST Temperature 36.1 ??C (96.9 ??F) 06/28/2024 3:04 PM ES T Respiratory Rate 14 08/16/2024 10:44 AM EST Oxygen Saturation - - Inhaled Oxygen Concentration - - Weight 105 kg (232 lb) 08/16/2024 10:44 AM EST Height 160 cm (5' 3 ) 08/16/2024 10:44 AM EST Body Mass Index 41.1 08/16/2024 10:44 AM EST Plan of Treatment Upcoming Encounters Date Type Department Care Team (Late st Contact Info) Description 11/06/2024 10:15 AM EDT Office Visit Orthopedic Surgery - [place] [address] [phone] Sheri Brandon MD [address] [phone] Health Maintenance Due Date Last Done Comments HPV Vaccines (1 - 3-dose series) 12/06/2015 Meningococcal B Vaccine (1 o f 2 - Standard) 2016 DTaP,Tdap,and Td Vaccines (1 - Tdap) 12/06/2019 Hepatitis B Vaccines (1 of 3 - 19+ 3-dose series) 12/06/2019 Pneumococcal Vaccine: Pediat rics (0 to 5 Years) and At-Risk Patients (6 to 64 Years) (1 of 2 - PCV) 12/06/2019 COVID-19 Vaccine (1 - 2024-2 5 season) 2024 Influenza Vaccine (Season Ended) 2025 Social Influencers of Health Screening 06/28/2025 06/28/2024 Gonorrhea/Chlamydia Screening 07/02/2025 07/02/2024 Depression Screening 08/09/2025 08/09/2024 Cervical Cancer Screening: P ap Smear 08/16/2027 08/16/2024 Cholesterol Screening (Lipid Panel) 07/02/2029 07/02/2024 HIV Screening Completed 07/02/2024 Hepatitis C Screening Completed 07/02/2024 HIB Vaccines Aged Out No longer eligi ble based on patient's age to complete this topic Hepatitis A Vaccines Aged Out No long er eligible based on patient's age to complete this topic IPV Vaccines Aged Out No longer eligi ble based on patient's age to complete this topic MMR Vaccines Aged Out No longer eligi ble based on patient's age to complete this topic Meningococcal ACWY Vaccine Aged Out N o longer eligible based on patient's age to complete this topic RSV Immunization Patients Un patricio 20 months Aged Out No longer eligible b ased on patient's age to complete this topic Varicella Vaccines Aged Out No longer eligible based on patient's age to complete this topic Procedures Procedure Name Priority Date/Time Associated Diagnosis Comments US PELVIS TRANSVAGINAL NON OB Routine 09/05/2024 5:17 PM EDT Pelvic pain US PELVIS NON OB COMPLETE Routine 08/20/2024 5:33 PM EST Pelvic pain EXTERNAL ULTRASOUND REPORT 08/20/2024 PAP SMEAR Routine 08/16/2024 11:17 AM EST Encounter for gynecological examination without abnormal finding MR KNEE WO CONTRAST LEFT Routine 07/21/2024 10:30 AM EST Chronic pain of left knee HEPATITIS C ANTIBODY Routine 07/02/2024 9:14 AM EST Screen for STD (sexually transmitted disease) HIV 1, 2 ANTIBODY, P24 ANTIGEN WITH REFLEX TO DIFFERENTIATION Routine 07/02/2024 9:14 AM EST Screen for STD (sexually transmitted disease) LIPID PANEL WITH REFLEX TO DIRECT LDL Routine 07/02/2024 9:14 AM EST PE (physical exam), annual CHLAMYDIA TRACHOMATIS AND NEISSERIA GONORRHOEAE PCR Routine 07/02/2024 9:14 AM EST Screen for STD (sexually transmitted disease) from Last 3 Months or Most Recently Relevant to Health Maintenance Results * US Pelvis Transvaginal Non OB (09/05/2024 5:17 PM EDT) Anatomical Region Laterality Modality Body Ultrasound 09/05/2024 5:25 PM EDT Impressions 09/05/2024 5:31 PM EDT Normal-appearing right ovary present. ??Left ovary not visualized. ??Patient reported to the superintendent track that she was unsure which ovary was removed or if only a cyst was removed. No uterine abnormality. POS [id number] -------- FINAL REPORT -------- Dictated By: Emerald Villegas Dictated Date: 09/05/2024 17:25 ET Assigned Physician: Emerald Villegas Reviewed and Electronically Signed By: Emerald Villegas Signed Date: 09/05/2024 17:31 ET Workstation ID: [id number] Transcribed By: Self Edit Transcribed Date: 09/05/2024 17:25 ET Narrative 09/05/2024 5:31 PM EDT PELVIC ULTRASOUND HISTORY: Pelvic pain. ??History of right oophorectomy. ??Follow-up to previous pelvic ultrasound where transvaginal imaging was not performed. COMPARISON: ??08/20/2024 FINDINGS: Transvaginal pelvic ultrasound was performed. ??Duplex Doppler scanning of the ovaries also performed. Uterus: 7.3 x 5.7 x 5.0 cm in size. ??Retroverted position. ??No focal solid lesion. Endometrium: 0.7 cm in thickness which is within normal limits. ??No focal abnormality identified. Right ovary: Well visualized and normal in size measuring 4.3 x 3.1 x 2.5 cm. ??It contains a 1.5 cm dominant follicle. ??Normal arterial and venous waveforms on spectral Doppler analysis. Left ovary: Not visualized. ?? Cul-de-sac: No free fluid. Procedure Note Emerald Villegas MD - 09/05/2024 PELVIC ULTRASOUND HISTORY: Pelvic pain. History of right oophorectomy. Follow-up toprevious pelvic ultrasound where transvaginal imaging was not performed. COMPARISON: 08/20/2024 FINDINGS: Transvaginal pelvic ultrasound was performed. Duplex Doppler scanning ofthe ovaries also performed. Uterus: 7.3 x 5.7 x 5.0 cm in size. Retroverted position. No focal solidlesion. Endometrium: 0.7 cm in thickness which is within normal limits. No focalabnormality identified. Right ovary: Well visualized and normal in size measuring 4.3 x 3.1 x 2.5cm. It contains a 1.5 cm dominant follicle. Normal arterial and venouswaveforms on spectral Doppler analysis. Left ovary: Not visualized. Cul-de-sac: No free fluid. IMPRESSION: Normal-appearing right ovary present. Left ovary not visualized. Patientreported to the superintendent track that she was unsure which ovary was removed orif only a cyst was removed. No uterine abnormality. POS [id number] -------- FINAL REPORT -------- Dictated By: Emerald Villegas Dictated Date: 09/05/2024 17:25 ET Assigned Physician: Emerald Villegas Reviewed and Electronically Signed By: Emerald Villegas Signed Date: 09/05/2024 17:31 ET Workstation ID: [id number] Transcribed By: Self Edit Transcribed Date: 09/05/2024 17:25 ET us F[place] Jay CNM IMG US PROCEDURES Final Result * US Pelvis Non OB Complete (08/20/2024 5:33 PM EST) Anatomical Region Laterality Modality Body, Pelvis Ultrasound 08/21/2024 8:14 AM EST Addenda Addendum by Emerald Villegas MD on 08/23/2024 4:53 PM EST Addendum: Patient states that the right ovary was removed in [place]. ??The structure measured as the right ovary is of uncertain etiology on this limited exam. ??Recommend endovaginal pelvic ultrasound to better assess the right adnexa. ??This was discussed with Tita in obstetrics and gynecology. -------- ADDENDUM -------- Dictated By: Emerald Villegas Dictated Date: 08/23/2024 16:50 ET Assigned Physician: Emerald Villegas Reviewed and Electronically Signed By: Emerald Villegas Signed Date: 08/23/2024 16:53 ET Workstation ID: [id number] Transcribed By: Self Edit Transcribed Date: 08/23/2024 16:50 ET Impressions 08/21/2024 8:27 AM EST Limited exam. ??No uterine or ovarian abnormality identified. POS [id number] -------- FINAL REPORT -------- Dictated By: Emerald Villegas Dictated Date: 08/21/2024 08:14 ET Assigned Physician: Emerald Villegas Reviewed and Electronically Signed By: Emerald Villegas Signed Date: 08/21/2024 08:27 ET Workstation ID: [id number] Transcribed By: Self Edit Transcribed Date: 08/21/2024 08:14 ET Narrative 08/21/2024 8:27 AM EST PELVIC ULTRASOUND HISTORY: Pelvic pain. ??Dysmenorrhea. COMPARISON: ??None FINDINGS: Transabdominal pelvic ultrasound was performed. ??Patient declined endovaginal pelvic ultrasound which limits the exam. ??Exam also limited secondary to body habitus. Uterus: 10.0 x 5.9 x 5.3 cm in size. ??No focal solid lesion identified. Endometrium: 0.7 cm in thickness which is within normal limits. ??No focal abnormality detected. Right ovary: 4.2 x 3.3 x 2.9 cm in size without abnormality. ?? Left ovary: 3.4 x 2.7 x 2.3 cm in size without abnormality. Cul-de-sac: No free fluid. Procedure Note Emerald Villegas MD - 08/21/2024 PELVIC ULTRASOUND HISTORY: Pelvic pain. Dysmenorrhea. COMPARISON: None FINDINGS: Transabdominal pelvic ultrasound was performed. Patient declinedendovaginal pelvic ultrasound which limits the exam. Exam also limitedsecondary to body habitus. Uterus: 10.0 x 5.9 x 5.3 cm in size. No focal solid lesion identified. Endometrium: 0.7 cm in thickness which is within normal limits. No focalabnormality detected. Right ovary: 4.2 x 3.3 x 2.9 cm in size without abnormality. Left ovary: 3.4 x 2.7 x 2.3 cm in size without abnormality. Cul-de-sac: No free fluid. IMPRESSION: Limited exam. No uterine or ovarian abnormality identified. POS [id number] -------- FINAL REPORT -------- Dictated By: Emerald Villegas Dictated Date: 08/21/2024 08:14 ET Assigned Physician: Emerald Villegas Reviewed and Electronically Signed By: Emerald Villegas Signed Date: 08/21/2024 08:27 ET Workstation ID: [id number] Transcribed By: Self Edit Transcribed Date: 08/21/2024 08:14 ET us [place] [facility] US PROCEDURES Edited Resul t - Final * External Ultrasound Report (08/20/2024) Anatomical Region Laterality Modality Ultrasound us Provider [employer] [facility] US PROCEDURES Final Result * Pap smear (08/16/2024 11:17 AM EST) Interpretation Negative for intraepithelial lesion or malignancy 08/20/2024 3:27 PM EST [facility] General Categorization Negative 08/20/2024 3:27 PM EST [facility] LMP 08/03/2024 08/20/2024 3:27 PM EST [facility] Additional Information Abundant acute inflammatory cells present. 08/20/2024 3:27 PM [facility] Specimen Adequacy Satisfactory for evaluation, endocervical/lind sformation zone component present 08/20/2024 3:27 PM EST [facility] Pap Methodology Liquid Based Pap Test 08/20/2024 3:27 PM EST [facility] Disclaimer The Pap test is a screening test which carries an inherent false negative rate. These test results should be correlated with the patient's clinical findings and history. This Pap test was processed using an automated screening system. Technical cytopathology services provided by [facility], at [address] [place] [address] (CLIA # [id number]/Kimmy Morgan MD, [employer] Operator.) 08/20/2024 3:27 PM EST [facility] Console Pap Interpretation Reported 08/20/2024 3:27 PM EST [facility] Brushing/Spatula Cervix uteri structure / Unknown 08/16/2024 11:17 AM EST 08/16/2024 11:17 AM EST [place] [facility] CYTOLOGY ORDERABLES Final Result [facility] [address] [place] [address], [place] [phone] * MR Knee wo Contrast Left (07/21/2024 10:30 AM EST) Anatomical Region Laterality Modality Lower Extremities, Knee Left Magnetic Resonance 07/22/2024 10:0 9 AM EST Impressions 07/22/2024 10:13 AM EST Small osteophyte at the upper pole of patella. ??Otherwise unremarkable MRI of the left knee. -------- FINAL REPORT -------- Dictated By: Devin Wilhelm Dictated Date: 07/22/2024 10:09 ET Assigned Physician: Devin Wilhelm Reviewed and Electronically Signed By: Devin Wilhelm Signed Date: 07/22/2024 10:13 ET Workstation ID: [id number] Transcribed By: Self Edit Transcribed Date: 07/22/2024 10:09 ET Narrative 07/22/2024 10:13 AM EST PROCEDURE: MRI of the left knee without contrast. HISTORY: Knee trauma, meniscal/ligament injury suspected, xray done (Age >= 1y). COMPARISON: Radiographs dated 03/23/2024. TECHNIQUE: Multiplanar multisequence MRI of the left knee without intravenous contrast administration. FINDINGS: MENISCI: Medial: Normal. Lateral: Normal. CRUCIATE LIGAMENTS: Anterior and posterior cruciate ligaments are normal. COLLATERAL LIGAMENTS: The medial collateral ligament and lateral collateral ligamentous complex are normal. ARTICULAR CARTILAGE: Lateral compartment: Normal. Medial compartment: Normal. Patellofemoral compartment: Normal. OTHER: Small osteophyte at the upper pole of the patella. Procedure Note Devin Wilhelm MD - 07/22/2024 PROCEDURE: MRI of the left knee without contrast. HISTORY: Knee trauma, meniscal/ligament injury suspected, xray done (Age>= 1y). COMPARISON: Radiographs dated 03/23/2024. TECHNIQUE: Multiplanar multisequence MRI of the left knee withoutintravenous contrast administration. FINDINGS: MENISCI: Medial: Normal. Lateral: Normal. CRUCIATE LIGAMENTS: Anterior and posterior cruciate ligaments arenormal. COLLATERAL LIGAMENTS: The medial collateral ligament and lateralcollateral ligamentous complex are normal. ARTICULAR CARTILAGE: Lateral compartment: Normal. Medial compartment: Normal. Patellofemoral compartment: Normal. OTHER: Small osteophyte at the upper pole of the patella. IMPRESSION: Small osteophyte at the upper pole of patella. Otherwise unremarkable MRIof the left knee. -------- FINAL REPORT -------- Dictated By: Devin Wilhelm Dictated Date: 07/22/2024 10:09 ET Assigned Physician: Devin Wilhelm Reviewed and Electronically Signed By: Devin Wilhelm Signed Date: 07/22/2024 10:13 ET Workstation ID: [id number] Transcribed By: Self Edit Transcribed Date: 07/22/2024 10:09 ET us Sheri Brandon MD [facility] MRI PROCEDURES Final Resul t * Hepatitis C antibody (07/02/2024 9:14 AM EST) Hepatitis C Antibody Negative Negative LAB CHEMISTRY METHOD 07/02/2024 1:55 PM EST [facility] Blood Venous blood specimen / Unknown Venipuncture / Unknown 07/02/2024 9:14 AM EST 07/02/2024 9:14 AM EST us Rupinder Andino MD LAB BLOOD ORDERABLES Final Resul t Performing Organization Address [facility]/ZIP Co de Phone Number [facility] [address] [place] [address], [place] [phone] * HIV 1,2 antibody, p24 antigen with reflex to differentiation (07/02/2024 9:14 AM EST) HIV Combo AB/AG Negative Negative LAB CHEMISTRY METHOD 07/02/2024 1:55 PM EST [facility] Blood Venous blood specimen / Unknown Venipuncture / Unknown 07/02/2024 9:14 AM EST 07/02/2024 9:14 AM EST Narrative [facility] - 07/02/2024 1:55 PM EST This assay is a 4th generation assay allowing for earlier detection of HIV infection by detecting the presence of the HIV-1 p24 antigen as well as the traditional antibodies to HIV type 1 (including group O) and type 2. ??Use of a 4th generation assay is the current CDC recommendation for HIV screening. us Rupinder Andino MD LAB BLOOD ORDERABLES Final Resul t Performing Organization Address City/[facility]/ZIP Co de Phone Number [facility] [address] [place] [address], [place] [phone] * Lipid panel with reflex to direct LDL (07/02/2024 9:14 AM EST) Pathologist [facility] Cholesterol 132 0 - 200 mg/dL LAB CHEMISTRY METHOD 07/02/2024 1:09 PM EST [facility] Triglycerides 59 0 - 150 mg/dL LAB CHEMISTRY METHOD 07/02/2024 1:09 PM EST [facility] HDL 40 >=40 mg/dL LAB CHEMISTRY METHOD 07/02/2024 1:09 PM [facility] LDL Calculated 80 0 - 100 mg/dL LAB CHEMISTRY METHOD 07/02/2024 1:09 PM [facility] VLDL Cholesterol Daljit 11.8 mg/dL LAB CHEMISTRY METHOD 07/02/2024 1:09 PM [facility] Non HDL Chol. (LDL+VLDL) 92 <145 mg/dL LAB CHEMISTRY METHOD 07/02/2024 1:09 PM [facility] Chol/HDL Ratio 3.3 0.0 - 4.4 LAB CHEMISTRY METHOD 07/02/2024 1:09 PM [facility] Blood Venous blood specimen / Unknown Venipuncture / Unknown 07/02/2024 9:14 AM EST 07/02/2024 9:14 AM EST us Rupinder Andino MD LAB BLOOD ORDERABLES Final Resul t [facility] [address] [place] [address], [place] [phone] * Chlamydia trachomatis and Neisseria gonorrhoeae molecular study (07/02/2024 9:14 AM EST) Neisseria gonorrhoeae PCR Negative Negative LAB MOLECULAR DIAGNOSTICS METHOD 07/02/2024 2:46 PM EST [facility] Chlamydia trachomatis PCR Negative Negative LAB MOLECULAR DIAGNOSTICS METHOD 07/02/2024 2:46 PM [facility] Swab Urine specimen / Unknown Non-blood Collection / Unknown 07/02/2024 9:14 AM EST 07/02/2024 9:14 AM EST us Rupinder Andino MD LAB MICROBIOLOGY - GENERAL ORDER OSWALDO Final Result [facility] [address] [place] [address], [place] [phone] from Last 3 Months or Most Recently Relevant to Health Maintenance Insurance [employer] Care Teams Car Sales Consultant Relationship Specialty Start Date End Date Rupinder Andino MD [address] [place] [id number] PCP - General 01/24/24
[2024-10-08] MEDS: Ketorolac Tromethamine 15 MG/ML VIAL IVPUSH (17:43)
[2024-10-08] MEDS: ondansetron HCL 4 MG/2 ML VIAL IVPUSH (17:44)
[2024-10-08] MEDS: 0.9 % Sodium Chloride 1,000 ML 999 ML IV (17:44)
[2024-10-08 17:45] LABS: Bacteria Urine 4+ (None Seen); RBC Urine 0-2 /HPF (0-2); Squamous Epithelial Cell Urine >20 /HPF (0-2); UACC Culture Trigger YES
[2024-10-08] MEDS: iohexoL 350 MG/ML 100 ML INFUS..BTL IV (18:02)
[2024-10-08] MEDS: cefTRIAXone sodium 1 GM VIAL IVPUSH (18:20)
[2024-10-08 19:06] VITALS: BP 105/57; PULSE 76; RESP 16; TEMP 37.2; O2SAT 99
[2024-10-08 20:46] VITALS: BP 111/61; PULSE 97; RESP 16; TEMP 36.9; O2SAT 99
== END 2024-10-08 20:47 | disposition home or self-care (01) ==
PROVIDERS: Registered Nurse Emergency; Emergency Provider Emergency Medicine Emergency Medical Services
DX: N39.0 Urinary tract infection, site not specified (principal); R11.2 Nausea with vomiting, unspecified; R10.2 Pelvic and perineal pain; M54.50 Low back pain, unspecified; R30.0 Dysuria; R00.0 Tachycardia, unspecified; R35.0 Frequency of micturition; Z03.818 Encounter for observation for suspected exposure to other biological agents ruled out; Z79.899 Other long term (current) drug therapy
CPT/HCPCS: 0241U; 74177; 80053; 81001; 81003; 83690; 83735; 84702; 85025; 87040; 87086; 96374; 96375; 99284; J0696; J1885; J2405; Q9967

== ENCOUNTER → 2024-10-08 17:30 | Outpatient (BNV) | payer MEDICAID, SELFPAY | PROVIDERS: Emergency Provider Emergency Medicine Emergency Medical Services; Visit Provider Radiology Diagnostic Radiology | DX: R10.9 Unspecified abdominal pain (principal); M54.9 Dorsalgia, unspecified | CPT/HCPCS: 74177 ==

== ENCOUNTER 2024-11-20 15:46 | Emergency (ER) | payer MEDICAID, SELFPAY ==
--- NOTE | ~2024-11-20 | CT_ITS ---
CLINICAL HISTORY: pain, appy?? CT abdomen and pelvis with contrast Comparison: CT of the abdomen and pelvis from 10/08/2024 Findings: Mild bibasilar atelectasis and/or pneumonitis. Mild fat deposition of the liver. Gallbladder is unremarkable for CT with mild motion artifacts. Imaged adrenal glands are normal. Mild/borderline splenomegaly. Pancreas is partly obscured by motion artifacts but otherwise unremarkable for CT. No hydronephrosis. Filtered contrast could obscure small/punctate stones. Small mesenteric and periaortic lymph nodes are nonspecific and may be reactive. Low-density multiple small-bowel loops as can be seen with enteritis. No small bowel obstruction. Fluid in the cecum as can be seen with diarrhea type illnesses and mild colitis. Wall thickening of the large intestine including splenic flexure and portions of the descending colon concerning for colitis. Imaged appendix is within normal limits (imaged 554 of series 4, image 39 of series 7, and imaged 64 of series 8). Uterus is retroverted and retroflexed. No adnexal soft tissue mass by CT. Mild free fluid in the pelvis nonspecific and may be reactive. Mild/minimal wall thickening of the urinary bladder is nonspecific. Mild/early facet arthropathy lumbosacral junction; greater than expected for age. IMPRESSION: 1. Mild wall thickening of the large intestine is nonspecific in concerning for colitis, including splenic flexure. 2. No small bowel obstruction. This document has been electronically signed by: Abraham Cotto MD on 11/21/2024 00:46:06
[2024-11-20 16:29] VITALS: BP 112/72; PULSE 93; RESP 18; TEMP 36.6; O2SAT 98; BMI 42.5
--- NOTE | 2024-11-20 16:32 | ECG_ITS ---
Test Reason : ABD PAIN Blood Pressure : */* mmHG Vent. Rate : 92 BPM Atrial Rate : 92 BPM P-R Int : 130 ms QRS Dur : 74 ms QT Int : 348 ms P-R-T Axes : 48 13 11 degrees QTcB Int : 430 ms Normal sinus rhythm Normal ECG No previous ECGs available Referred By: John Larson Electronically Signed By: REUBEN MARIE
--- NOTE | 2024-11-20 16:33 | ED_ITS ---
HPI - General Adult General Chief complaint: Abdominal Pain Stated complaint: Abdominal pain/Dizziness Time Seen by Provider: 11/20/24 21:50 Source: patient Limitations: language barrier History of Present Illness ED Provider: Goldie Miller PA-C HPI narrative: 23-year-old female who is morbidly obese presents with abdominal pain x1 week. Pain originates over periumbilical region, then radiates toward mid right abdomen down to the right lower abdomen. Unable to describe the nature of her discomfort, but states it is constant. Associated nausea at times with 2 episodes of loose stool, total over the week. Patient states she was seen recently in the emergency department and told she had an enlarged appendix, but was not treated for appendicitis. She was treated for a urinary tract infection at that time. Patient still has dysuria. Denies fever. Related Data Previous Rx's ?Medication ?Instructions ?Recorded naproxen 500 mg tablet 500 mg PO BID 30 days #60 tabs 11/28/23 cefuroxime axetil 250 mg tablet 250 mg PO BID 7 days #14 tabs 01/03/24 ibuprofen 600 mg tablet 600 mg PO Q6H PRN fever or pain 01/03/24 #30 tabs terbinafine HCl 1 % topical cream 1 appl topical BID #30 grams 01/03/24 (Antifungal (terbinafine)) acetaminophen 500 mg tablet 500 mg PO Q6H PRN pain #30 tabs 01/16/24 (Tylenol Extra Strength) naproxen 375 mg tablet 375 mg PO BID PRN pain #30 tabs 01/16/24 cefpodoxime 200 mg tablet 200 mg PO BID 10 days #20 tabs 10/08/24 ondansetron 4 mg disintegrating 4 mg PO Q6H PRN nausea and 10/08/24 tablet vomiting #10 tabs ketorolac 10 mg tablet 10 mg PO Q6H PRN pain #20 tabs 11/21/24 levofloxacin 750 mg tablet 750 mg PO DAILY #7 tabs 11/21/24 metronidazole 500 mg tablet 500 mg PO Q8H 7 days #21 tabs 11/21/24 ondansetron HCl 4 mg tablet 4 mg PO Q8H PRN nausea and 11/21/24 vomiting 3 days #9 tabs Allergies Allergy/AdvReac Type Severity Reaction Status Date / Time No Known Allergies Allergy Verified 11/20/24 16:32 Review of Systems 2 Review of Systems: Yes all other systems are reviewed and are negative Constitutional: Constitutional: Denies fatigue and Denies fever(s) Cardiovascular: Cardiovascular: Denies chest pain and Denies dyspnea Respiratory: Respiratory: Denies cough and Denies dyspnea Gastrointestinal: Gastrointestinal: Reports abdominal pain, Denies constipation, Reports loose stools, Reports nausea and Denies vomiting Musculoskeletal: Musculoskeletal: Denies back pain Endocrine: Endocrine: Denies fatigue [facility] Past Medical History Attestation statement: The following information was validated with the patient. 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 Physical Exam ED Vital Signs: Vital Signs - 24 hr 11/20/24 16:29 11/20/24 19:41 11/20/24 21:43 Temperature 97.9 F 98.9 F 99.3 F Pulse Rate 93 93 95 Respiratory Rate 18 20 16 Blood Pressure 112/72 126/73 101/58 L Pulse Oximetry 98 96 97 Oxygen Delivery Method Room Air Room Air Room Air 11/21/24 02:35 Temperature Pulse Rate 102 H Respiratory Rate 18 Blood Pressure 115/78 Pulse Oximetry 97 Oxygen Delivery Method Room Air BMI result Body Mass Index 42.5 Const Other: Alert well-appearing Orientation/consciousness: patient oriented x3 Resp Effort & Inspection: normal respiratory effort Cardio Other: normal peripheral perfusion GI Other: abdomen is soft, obese, nondistended, mild to moderate tenderness over suprapubic to right lower abdomen without involuntary guarding General: Yes no CVA tenderness Back/Spine/Pelvis Back: no CVA tenderness Skin Other: warm dry no rash Neuro General: patient oriented x3, gait normal, no focal motor deficits and CN's II- XI intact bilaterally Psych Other: cooperative Course Course Course Narrative: RME, this is a rapid medical exam performed by Chidi Larson please refer to primary provider for complete H&P- 23-year-old female presents for evaluation of abdominal pain that radiates up into her chest and arms. His symptoms started last week and have been worsening. Plan for labs, urinalysis and Medications Administered Discontinued Medications Generic Name Dose Route Start Last Admin Trade Name Cynthia PRN Reason Stop Dose Admin Sodium Chloride 1,000 mls @ 999 mls/hr 11/20/24 22:45 11/21/24 00:05 Ns IV 11/20/24 23:45 Infused .Q1H1M AUBREY Infusion Iohexol 85 ml 11/20/24 23:52 11/20/24 23:53 Iohexol 350 Mg/Ml 100 Ml Infus..Btl IV 11/20/24 23:53 85 ml ONCE ONE Administration Ketorolac Tromethamine 15 mg 11/20/24 22:36 11/20/24 22:57 Ketorolac Tromethamine 15 Mg/Ml Vial IVPUSH 11/20/24 22:37 15 mg ONCE ONE Administration Levofloxacin 750 mg 11/21/24 01:49 11/21/24 02:32 Levofloxacin 750 Mg Tablet PO 11/21/24 01:50 750 mg ONCE ONE Administration Methylprednisolone Sodium Succinate 125 mg 11/21/24 01:49 11/21/24 02:32 Methylprednisolone Sod Succ 125 Mg/2 Ml Vial IVPUSH 11/21/24 01:50 Not Given ONCE ONE Metronidazole 500 mg 11/21/24 01:49 11/21/24 02:32 Metronidazole 500 Mg Tablet PO 11/21/24 01:50 500 mg ONCE ONE Administration Ondansetron HCl 4 mg 11/20/24 22:36 11/20/24 22:57 Ondansetron Hcl 4 Mg/2 Ml Vial IVPUSH 11/20/24 22:37 4 mg ONCE ONE Administration Ondansetron HCl 4 mg 11/21/24 01:45 11/21/24 02:32 Ondansetron Hcl 4 Mg/2 Ml Vial IVPUSH 11/21/24 01:46 4 mg ONCE ONE Administration Medical Decision Making Medical Decision Making MDM Narrative: 23-year-old female who is morbidly obese presents with abdominal pain x1 week. Pain originates over periumbilical region, then radiates toward mid right abdomen down to the right lower abdomen. Unable to describe the nature of her discomfort, but states it is constant. Associated nausea at times with 2 episodes of loose stool, total over the week. Patient states she was seen recently in the emergency department and told she had an enlarged appendix, but was not treated for appendicitis. She was treated for a urinary tract infection at that time. Patient still has dysuria. Denies fever. no known chronic issues History: Per patient I have considered the following differential diagnoses: Appendicitis, torsion, renal colic, UTI, sigmoid diverticulitis Plan: Screening labs including a urinalysis were obtained from triage, she still has a evidence of urinary tract infection. She is passing a small amount of hematuria, however she also has her menstrual cycle at this time. Given she was seen recently in the emergency room with a prominent appendix on CT scan, I am repeating the scan given the distribution of her discomfort. This could still be torsion versus renal colic. She may require transvaginal ultrasound if the CT scan is indeterminate. Given the presence of diarrhea, perhaps she has sigmoid diverticulitis. We will be giving morphine Zofran and IV fluid I have independently reviewed the following tests: Labs: No overall leukocytosis, left shift noted, not anemic, no electrolyte abnormality, not , urine still appears infected CT abdomen and pelvis:IMPRESSION: 1. Mild wall thickening of the large intestine is nonspecific in concerning for colitis, including splenic flexure. 2. No small bowel obstruction. Given the patient's still complains of discomfort, I will treat with antibiotics. Lab Data 11/20/24 16:43 11/20/24 16:43 Labs: Lab Results 11/20/24 11/20/24 Range/Units 16:43 20:30 WBC 6.7 (4.8-10.8) X10*3/uL RBC 4.59 (4.20-5.50) X10*6/uL Hgb 12.3 (12.0-16.0) g/dl Hct 37.9 (37.0-47.0) % MCV 82.6 (80.0-98.0) fL MCH 26.8 L (27.0-33.0) pg MCHC 32.5 (31.0-35.0) g/dl RDW 14.0 (11.0-16.0) % Plt Count 207 (160-400) X10*3/uL MPV 9.9 (9.4-12.3) fL Immature Gran % (Auto) 0.3 (0.0-0.4) % Neut % (Auto) 76.6 H (45-73) % Lymph % (Auto) 14.1 L (20-40) % [place] % (Auto) 8.0 (2-11) % Eos % (Auto) 0.9 (0-4) % Baso % (Auto) 0.1 (0-2) % Lymph # (Auto) 1.0 L (1.2-4.9) X10*3/uL [place] # (Auto) 0.5 (0.1-1.2) X10*3/uL Eos # (Auto) 0.1 (0.0-0.4) X10*3/uL Baso # (Auto) 0.0 (0.0-0.2) X10*3/uL Abs Immat Gran (auto) 0.02 (0.00-0.03) X10*3/uL Absolute Neuts (auto) 5.1 (2.0-8.3) x10*3/uL Absolute Nucleated RBC 0.000 (0.0-0.012) X10*3/uL Nucleated RBC % (auto) 0.0 (0.0-0.2) /100WBC Sodium 138 (135-145) mmol/L Potassium 3.8 (3.3-5.1) mmol/L Chloride 109 H (96-108) mmol/L Carbon Dioxide 24 (22-29) mmol/L Anion Gap 9 L (12-20) BUN 11 (9-16) mg/dL Creatinine 0.65 (0.5-1.4) mg/dL Estim Creat Clear Calc 153.4 Estimated GFR > 60 Random Glucose 97 (60-115) mg/dL Calcium 8.9 (8.4-10.2) mg/dL Total Bilirubin 0.2 (0.0-1.0) mg/dL AST 23 (5-31) U/L ALT 37 H (0-31) U/L Alkaline Phosphatase 82 (39-117) U/L Troponin I High Sens < 2.7 (<3.5-17.0) ng/L Total Protein 7.4 (6.5-8.0) g/dL Albumin 4.0 (3.5-5.0) g/dL Lipase 26 (8-78) U/L Beta HCG, Quant < 2 mIU/mL Urine Color [place] A Urine Appearance Cloudy Urine pH 5.5 (5.0-9.0) Ur Specific [place] >= 1.030 H (1.005-1.025) Urine Protein 30 (1+) H (Neg-Trace) mg/dL Urine Glucose (UA) Negative (Negative) mg/dL Urine Ketones Negative (Negative) mg/dL Urine Blood Large (3+) H (Negative) Urine Nitrite Negative (Negative) Ur Leukocyte Esterase Small (1+) H (Negative) Urine RBC >20 H (0-2) /HPF Urine WBC 21-50 H (0-5) /HPF Ur Squamous Epith Cells 3-5 (0-2) /HPF Urine Bacteria 1+ (None Seen) Hyaline Casts 0-2 (0-2) /LPF Discharge Plan Discharge Clinical Impression: Colitis, Urinary tract infection Patient Disposition: Home, Self-Care Instructions: Urinary Tract Infection in Women (ED), Colitis (ED) Additional Instructions: you were found to have colitis, this is inflammation and a portion of your large bowel. You were also found to have a persistent urinary tract infection. See home care instructions for both conditions. You are being treated with 2 antibiotics, this will be adequate coverage for your concurrent urinary tract infection. Take the Levaquin as directed, take the Flagyl as directed. You should also be using an anti-inflammatory, ketorolac, for the colitis, take this medication with food. Uses Zofran as needed for nausea. Do not take any additional naproxen or ibuprofen while taking the ketorolac. Follow up with your primary care provider as needed. Prescriptions: New ketorolac 10 mg tablet 10 mg PO Q6H PRN (Reason: pain) Qty: 20 0RF Rx Instructions: maximum total duration of 5 days from all oral, intranasal, or parenteral formulations. The patient had an IV dose of Toradol here in the emergency department. levofloxacin 750 mg tablet 750 mg PO DAILY Qty: 7 0RF metronidazole 500 mg tablet 500 mg PO Q8H 7 Days Qty: 21 0RF ondansetron HCl 4 mg tablet 4 mg PO Q8H PRN (Reason: nausea and vomiting) 3 Days Qty: 9 0RF No Action acetaminophen [Tylenol Extra Strength] 500 mg tablet 500 mg PO Q6H PRN (Reason: pain) Qty: 30 0RF naproxen 375 mg tablet 375 mg PO BID PRN (Reason: pain) Qty: 30 0RF cefpodoxime 200 mg tablet 200 mg PO BID 10 Days Qty: 20 0RF Rx Instructions: must administer with a meal/food ondansetron 4 mg tablet,disintegrating 4 mg PO Q6H PRN (Reason: nausea and vomiting) Qty: 10 0RF cefuroxime axetil 250 mg tablet 250 mg PO BID 7 Days Qty: 14 0RF ibuprofen 600 mg tablet 600 mg PO Q6H PRN (Reason: fever or pain) Qty: 30 0RF terbinafine HCl [Antifungal (terbinafine)] 1 % cream 1 appl topical BID Qty: 30 0RF naproxen 500 mg tablet 500 mg PO BID 30 Days Qty: 60 3RF Print Language: [place]uran
[2024-11-20 16:48] LABS: MANUAL DIFF FLAG NO
[2024-11-20 16:51] LABS: Basophils Percent Auto 0.1 % (0-2); Eosinophils Absolute Auto 0.1 X10*3/uL (0.0-0.4); Eosinophils Percent Auto 0.9 % (0-4); Hematocrit 37.9 % (37.0-47.0); Hemoglobin 12.3 g/dl (12.0-16.0); Imm Gran Abs Auto 0.02 X10*3/uL (0.00-0.03); Imm Gran Pct Auto 0.3 % (0.0-0.4); Lymphocytes Percent Auto 14.1 % (20-40); Mean Corpuscular HGB Conc 32.5 g/dl (31.0-35.0); Mean Corpuscular Hemoglobin 26.8 pg (27.0-33.0); Mean Corpuscular Volume 82.6 fL (80.0-98.0); Mean Platelet Volume 9.9 fL (9.4-12.3); Monocytes Absolute Auto 0.5 X10*3/uL (0.1-1.2); Neutrophils Absolute Auto 5.1 x10*3/uL (2.0-8.3); Neutrophils Percent Auto 76.6 % (45-73); Platelet Count 207 X10*3/uL (160-400); Red Blood Count 4.59 X10*6/uL (4.20-5.50); White Blood Count 6.7 X10*3/uL (4.8-10.8)
[2024-11-20 17:16] LABS: Alanine Aminotransferase 37 U/L (0-31); Alkaline Phosphatase 82 U/L (39-117); Anion Gap 9 (12-20); Aspartate Amino Transferase 23 U/L (5-31); Bilirubin Total 0.2 mg/dL (0.0-1.0); Blood Urea Nitrogen 11 mg/dL (9-16); Calcium 8.9 mg/dL (8.4-10.2); Carbon Dioxide 24 mmol/L (22-29); Chloride 109 mmol/L (96-108); Creatinine Clr Calc Pharmacy 153.4; Estimated Glomerular Filt Rate > 60; Glucose Random 97 mg/dL (60-115); Lipase 26 U/L (8-78); Potassium 3.8 mmol/L (3.3-5.1); Sodium 138 mmol/L (135-145); Total Protein 7.4 g/dL (6.5-8.0)
[2024-11-20 17:22] LABS: HCG Quantitative < 2 mIU/mL; Troponin-I High Sensitivity < 2.7 ng/L (<3.5-17.0)
[2024-11-20 19:41] VITALS: BP 126/73; PULSE 93; RESP 20; TEMP 37.2; O2SAT 96
[2024-11-20 20:54] LABS: Appearance Urine Cloudy; Color Urine Orange; Glucose Urine UA Negative (Negative); Leukocyte Esterase Urine Small (1+) (Negative); Nitrite Urine Negative (Negative); PH 5.5 (5.0-9.0); Specific Gravity - Urine >= 1.030 (1.005-1.025); UMIC TRIGGER UACC YES; Urine Blood Large (3+) (Negative); Urine Ketones Negative (Negative); Urine Protein 30 (1+) mg/dL (Neg-Trace)
[2024-11-20 20:55] LABS: Bacteria Urine 1+ (None Seen); Hyaline Casts Urine 0-2 /LPF (0-2); RBC Urine >20 /HPF (0-2); UACC Culture Trigger YES; WBC Urine 21-50 /HPF (0-5)
--- NOTE | 2024-11-20 21:35 | PC.NURSE ---
PT comes in from waiting from with complaints of epigastric pain that radiates to right abdominal quad. PT pointed to RUQ and states her appendix hurts- 03/29 pain. When asked why she states appendix given that it is lower, pt states she had imaging done 3 weeks ago in the ED and was told her appendix is inflamed PT a/ox4, Qatari speaking.
[2024-11-20 21:43] VITALS: BP 101/58; PULSE 95; RESP 16; TEMP 37.4; O2SAT 97
--- OUTSIDE RECORDS SUMMARY | 2024-11-20 22:10 | XMS_ITS | Clinical Summary ---
Author Organization [employer] Address [address] [place] [address] [address] [place] [address] Care Team Providers Care Employee Communications Coordinator Name Role Phone Unavailable Primary Care Provider [...] and Gonorrhea Screening 2000 Depression Screening 2000 Disability Screening 2000 Alcohol/Substance Use Screening 2012 Tobacco Screening 2012 Family Planning (PISQ) 12/06/2015 HPV Vaccines (1 - 3-dose series) 12/06/2015 Meningococcal B Vaccine (1 o f 2 - Standard) 2016 DTaP/Tdap/Td Vaccines (1 - Tdap) 12/06/2019 Hepatitis B Vaccines (1 of 3 - 19+ 3-dose series) 12/06/2019 Pap Smear 2021 COVID-19 Vaccine (1 - 2023-2 5 season) 2024 Influenza Vaccine (Season Ended) 2025 Zoster Vaccines (1 of 2) 2050 RSV [...]
[2024-11-20] MEDS: Ketorolac Tromethamine 15 MG/ML VIAL IVPUSH (22:57)
[2024-11-20] MEDS: ondansetron HCL 4 MG/2 ML VIAL IVPUSH (22:57)
[2024-11-20] MEDS: 0.9 % Sodium Chloride 1,000 ML 999 ML IV (22:57)
--- NOTE | 2024-11-20 23:09 | PC.NURSE ---
20g IV line placed in right forearm. IV is patent and intact. Fluids infusing, pt medicated as per aug. effectivness pend
[2024-11-20] MEDS: iohexoL 350 MG/ML 100 ML INFUS..BTL 85 ML IV (23:53)
[2024-11-21] MEDS: metroNIDAZOLE 500 MG TABLET PO (02:32)
[2024-11-21] MEDS: levoFLOXacin 750 MG TABLET PO (02:32)
[2024-11-21] MEDS: ondansetron HCL 4 MG/2 ML VIAL IVPUSH (02:32)
[2024-11-21 02:35] VITALS: BP 115/78; PULSE 102; RESP 18; O2SAT 97
[2024-11-21 03:38] VITALS: BP 115/78; PULSE 102; RESP 18; TEMP -17.7; TEMP 0; O2SAT 97
== END 2024-11-21 03:39 | disposition home or self-care (01) ==
PROVIDERS: Physician Assistant; Emergency Provider Emergency Medicine
DX: N39.0 Urinary tract infection, site not specified (principal); K52.9 Noninfective gastroenteritis and colitis, unspecified; E66.9 Obesity, unspecified; Z68.41 Body mass index [BMI] 40.0-44.9, adult
CPT/HCPCS: 36415; 74177; 80053; 81001; 83690; 84484; 84702; 85025; 87086; 93005; 96361; 96374; 96375; 96376; 99284; 99285; J1885; J2405; Q9967

== ENCOUNTER → 2024-11-20 16:32 | Outpatient (BNV) | payer MEDICAID, SELFPAY | PROVIDERS: Emergency Provider Emergency Medicine; Visit Provider Internal Medicine | DX: R10.9 Unspecified abdominal pain (principal) | CPT/HCPCS: 93010 ==

== ENCOUNTER → 2024-11-20 22:36 | Outpatient (BNV) | payer MEDICAID, SELFPAY | PROVIDERS: Visit Provider Radiology Neuroradiology | DX: R10.9 Unspecified abdominal pain (principal) | CPT/HCPCS: 74177 ==

== ENCOUNTER 2025-01-11 12:22 | Emergency (ER) | payer MEDICAID, SELFPAY ==
--- OUTSIDE RECORDS SUMMARY | 2023-11-13 05:00 | XMS_ITS ---
Author Organization [facility] Address [address] [place] [address] Care Team Providers Care Contract Modeler Name Role Phone No Disponible, No Diponible Unavailable Unav ailable Migration, Provider Unavailable Unavailable REASON FOR VISIT [facility] [place] Encounters Encounter Location Date Provider Diagnosis [facility] [address] [place] [address] 11/13/2023 Provider Migration Plan Of Treatment No Information Progress Notes * Angelic NUNEZeDOB :2000 (24 yo F)Acc No.[id number]:11/13/2023 Patient: Angelic RIVERA :2000 A ge:22 Y S ex:Female Address:[address] [place], [address] Subjective: * Chief Complaints: * E MR-Scottie * Medical History: * Surgical History: * Hospitalization/Major Diagno stic Procedure: * Medications: Objective: * Vitals: * Physical Examination: Assessment: Plan: * Treatment: * Procedure Codes: * * Date:
[2025-01-11 12:32] VITALS: BP 118/77; PULSE 78; RESP 16; TEMP 36.3; O2SAT 99; BMI 40.5
--- NOTE | 2025-01-11 12:33 | ED_ITS ---
HPI - General Adult General Chief complaint: Urogenital-Female Stated complaint: ? UTI Time Seen by Provider: 01/11/25 14:35 Source: patient Mode of arrival: ambulatory Limitations: language barrier (Bolivian-speaking supervisor paper machine utilized) History of Present Illness ED Provider: Mayda Stauffer NP HPI narrative: Patient is a 24-year-old female who presents emergency department for evaluat ion. She reports over the past 3 days she has been experiencing dysuria, urinary urgency, history of similar symptoms associated with urinary tract infection in the past. She started her menstrual period yesterday denies concern for . She does admit that she is currently sexually active, but denies concern for sexually transmitted infections. Prior to the onset of her menses she was having white vaginal discharge over the past few days which is atypical for her, mild burning to the vaginal area. Denies fevers or chills. Denies pelvic or abdominal pain. No back pain. No nausea or vomiting. Related Data Previous Rx's ?Medication ?Instructions ?Recorded naproxen 500 mg tablet 500 mg PO BID 30 days #60 ta bs 11/28/23 cefuroxime axetil 250 mg tablet 250 mg PO BID 7 days # 14 tabs 01/03/24 ibuprofen 600 mg tablet 600 mg PO Q6H PRN fever or p ain 01/03/24 #30 tabs terbinafine HCl 1 % topical cream 1 appl topical BID # 30 grams 01/03/24 (Antifungal (terbinafine)) acetaminophen 500 mg tablet 500 mg PO Q6H PRN pain #30 tabs 01/16/24 (Tylenol Extra Strength) naproxen 375 mg tablet 375 mg PO BID PRN pain #30 t abs 01/16/24 cefpodoxime 200 mg tablet 200 mg PO BID 10 days #20 ta bs 10/08/24 ondansetron 4 mg disintegrating 4 mg PO Q6H PRN nausea and 10/08/24 tablet vomiting #10 tabs ketorolac 10 mg tablet 10 mg PO Q6H PRN pain #20 ta bs 11/21/24 levofloxacin 750 mg tablet 750 mg PO DAILY #7 tabs 10/12 metronidazole 500 mg tablet 500 mg PO Q8H 7 days #21 t abs 11/21/24 ondansetron HCl 4 mg tablet 4 mg PO Q8H PRN nausea and 11/21/24 vomiting 3 days #9 tabs cefuroxime axetil 250 mg tablet 250 mg PO BID #14 tabs 01/11/25 Allergies Allergy/AdvReac Type Severity Reaction Status Date / Time No Known Allergies Allergy Verified 01/11/25 12:35 Review of Systems Review of Systems: Yes all other systems are reviewed and are negative [facility] Past Medical History Attestation statement: The following information was validated with the patient. 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 No acute distress.?Normal affect. CVS: Heart sounds normal. Normal heart rate and rhythm.? Pulses normal.?? Respiratory: No respiratory distress.? Lung sounds clear to auscultation bilaterally?? Abdomen: Soft and non-tender. Normoactive bowel sounds. No CVAT. Skin: Skin warm and dry.? Normal skin color.? Neuro: Moves all extremities spontaneously. Sensation intact bilaterally. Ambulates with normal steady gait. Vital Signs: Vital Signs - 24 hr 01/11/25 12:32 01/11/25 15:50 01/11/25 16:48 Temperature 97.4 F 98.1 F 98.1 F Pulse Rate 78 80 80 Respiratory Rate 16 18 18 Blood Pressure 118/77 107/68 107/68 Pulse Oximetry 99 96 96 Oxygen Delivery Method Room Air Room Air Room Air BMI result Body Mass Index 40.5 Course Course Course Narrative: RME, this is a rapid medical exam performed by Chidi Larson please refer to primary provider for complete H&P- 24-year-old female presents for evaluation of vaginal itching and burning. Symptoms started a few days ago. She is sexually active. Plan for urinalysis, and CT NG by urine Medical Decision Making Medical Decision Making MDM Narrative: Patient is a 24-year-old female with no reported past medical history presenting for evaluation of dysuria, urinary urgency and abnormal vaginal discharge as per HPI. She declines to have urogenital examination/pelvic examination. She is amenable to having testing for chlamydia/gonorrhea in addition to bacterial vaginosis panel for which she provided a urine sample and will perform a self vaginal swab. Urinalysis obtained is consistent with a urinary tract infection hCG is negative. Her abdominal examination is benign, I have a lower suspicion for tubo-ovarian abscess/PID, does not appear consistent with ovarian torsion or ruptured ovarian cyst given lack of abdominal pain or tenderness. Advised that she will be contacted with any positive result from the hospital over the next few days from her swabs that remain pending. She is without signs of systemic toxicity afebrile no tachycardia, tolerating oral intake and has been CVA tenderness to otherwise suggest pyelonephritis. She will be discharged home with a course of antibiotics, given return precautions. All questions answered. Stable for discharge. Differential Diagnosis Differential Diagnoses: The differential diagnosis associated with the presentation includes (See narrative above) Lab Data MDM Lab Attestation statement: I reviewed the patient's lab results. (See narrative above) Labs: Lab Results 01/11/25 Range/Units 14:27 Urine Color Yellow Urine Appearance Clear Urine pH 6.5 (5.0-9.0) Ur Specific [place] <= 1.005 (1.005-1.025) Urine Protein Negative (Neg-Trace) mg/dL Urine Glucose (UA) Negative (Negative) mg/dL Urine Ketones Negative (Negative) mg/dL Urine Blood Large (3+) H (Negative) Urine Nitrite Positive H (Negative) Ur Leukocyte Esterase Moderate (2+) H (Negative) Urine RBC >20 H (0-2) /HPF Urine WBC 6-10 H (0-5) /HPF Ur Squamous Epith Cells 0-2 (0-2) /HPF Urine Bacteria 4+ (None Seen) Hyaline Casts 0-2 (0-2) /LPF Urine Test NEGATIVE (NEGATIVE) Ur N gonorrhoeae DNA (PCR) NOT DETECTED (Not Detect.) Ur Chlamydia DNA (PCR) NOT DETECTED (Not Detect.) External Record Review External record reviewed: Outpatient record Prescription Management I considered prescription management with: Antibiotic Discharge Plan Discharge Clinical Impression: Urinary tract infection Patient Disposition: Home, Self-Care Instructions: Urinary Tract Infection in Women (ED) Additional Instructions: Found to have urinary tract infection while in the emergency department. Testing today was sent for chlamydia which were sexually transmitted infections as well as bacterial vaginosis panel and yeast. These test results will not be back today. If there is any positive result over the next few days would require alternative treatment you will receive a phone call from the hospital. Please complete the entire course of antibiotics do not skip any doses or stop taking early even if you begin to feel better. It is very important to use a back-up form of control, such as barrier condoms/abstinence, while on antibiotics and for one week after as they may be ineffective in preventing while on the antibiotics. While taking antibiotics, please include probiotics that can be found over the counter or yogurt in your diet. If symptoms of a yeast infection or diarrhea occur, please seek evaluation. Follow-up with your primary care provider for any persistent symptoms. Return to emergency department with new or worsening symptoms or concerns which include but is not limited to worsening pain, inability to urinate, blood in the urine, nausea with persistent vomiting, back pain, fevers, chills Prescriptions: New cefuroxime axetil 250 mg tablet 250 mg PO BID Qty: 14 0RF No Action acetaminophen [Tylenol Extra Strength] 500 mg tablet 500 mg PO Q6H PRN (Reason: pain) Qty: 30 0RF naproxen 375 mg tablet 375 mg PO BID PRN (Reason: pain) Qty: 30 0RF cefpodoxime 200 mg tablet 200 mg PO BID 10 Days Qty: 20 0RF Rx Instructions: must administer with a meal/food ondansetron 4 mg tablet,disintegrating 4 mg PO Q6H PRN (Reason: nausea and vomiting) Qty: 10 0RF cefuroxime axetil 250 mg tablet 250 mg PO BID 7 Days Qty: 14 0RF ibuprofen 600 mg tablet 600 mg PO Q6H PRN (Reason: fever or pain) Qty: 30 0RF terbinafine HCl [Antifungal (terbinafine)] 1 % cream 1 appl topical BID Qty: 30 0RF ketorolac 10 mg tablet 10 mg PO Q6H PRN (Reason: pain) Qty: 20 0RF Rx Instructions: maximum total duration of 5 days from all oral, intranasal, or parenteral formulations. The patient had an IV dose of Toradol here in the emergency department. levofloxacin 750 mg tablet 750 mg PO DAILY Qty: 7 0RF metronidazole 500 mg tablet 500 mg PO Q8H 7 Days Qty: 21 0RF ondansetron HCl 4 mg tablet 4 mg PO Q8H PRN (Reason: nausea and vomiting) 3 Days Qty: 9 0RF naproxen 500 mg tablet 500 mg PO BID 30 Days Qty: 60 3RF Referrals: Physician,Unknown J [Primary Care Provider, Medical] Interventions: ED Discharge Assessment Last Done: 01/11/25 16:48 Discharge Date/Time: 01/11/25 16:48 Print Language: [place]ian
[2025-01-11 14:36] LABS: Appearance Urine Clear; Glucose Urine UA Negative (Negative); PH 6.5 (5.0-9.0); Specific Gravity - Urine <= 1.005 (1.005-1.025); UMIC TRIGGER UACC YES
[2025-01-11 14:38] LABS: UPreg QC Valid YES
[2025-01-11 14:41] LABS: UACC Culture Trigger YES
--- OUTSIDE RECORDS SUMMARY | 2025-01-11 14:45 | XMS_ITS | Clinical Summary ---
Author Organization [employer] Address [address] [facility] [address] [place] [address] Care Team Providers Care Digital Learning Platforms Manager Name Role Phone Unavailable Primary Care Provider [...] Health Maintenance Due Date Last Done Comments Depression Screening 2000 Disability Screening 2000 Alcohol/Substance Use Screening 2012 Tobacco Screening 2012 Family Planning (PISQ) 12/06/2015 HPV Vaccines (1 - 3-dose series) 12/06/2015 DTaP/Tdap/Td Vaccines (1 - Tdap) 12/06/2019 Hepatitis B Vaccines (1 of 3 - 19+ 3-dose series) 12/06/2019 Pap Smear 2021 COVID-19 Vaccine (1 - 2023-2 5 season) 2024 Influenza Vaccine (#1) 2025 Zoster Vaccines (1 of 2) 2050 [...] patient's age to complete this topic Meningococcal B Vaccine Aged Out No l onger eligible based on patient's age to complete this topic Meningococcal Vaccine Aged Out No chay craig eligible based on patient's age to complete this topic Pneumococcal Vaccine: Pediat rics (0 to 5 Years) and At-Risk Patients (6 to 49) Years Aged Out No longer eligible b ased on patient's age to complete this topic RSV under 20 months Aged Out No longe r eligible based on patient's age to complete this topic Rotavirus Vaccines Aged Out No longer eligible based on patient's age to complete this topic
--- OUTSIDE RECORDS SUMMARY | 2025-01-11 14:46 | XMS_ITS | Clinical Summary ---
Author Organization [facility] Address [address] [place] [phone] Phone Care Team Providers Care Protective Services Officer Name Role Phone Rupinder Andino MD Primary Care Provider [phone] Allergies No known active allergies Medications No known medications Active Problems Problem Noted Date Diagnosed Date Asthma 04/18/2024 Encounters Date Type Department Care Team Description 12/19/2024 12:56 PM EDT - 12/19/2024 11:59 PM EDT Hospital Encounter [facility] - [facility] [address] [place], [place] [phone] Discharge Disposition: Home or Self Care 12/19/2024 12:52 PM EDT - 12/19/2024 11:59 PM EDT Hospital Encounter XRAY - [facility] [address] [place], [place] [phone] Chronic midline low back pain without sciatica Discharge Disposition: Home or Self Care 12/18/2024 2:00 PM EDT Office Visit Adult Medicine [address] [phone] Rupinder Andino MD Numbness and tingling in both hands (Primary Dx); Pain in both forearms; Chronic midline low back pain without sciatica; 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 Back pain/Pt booked mychart appt please triage. I canceled my chart. Pt is aware. Thank you) 11/06/2024 10:15 AM EDT Office Visit Orthopedic Surgery [facility] [address] [facility] [address] [place] [phone] Sheri Brandon MD Chronic pain of left knee (Primary Dx); Pain of left hip from Last 3 Months Surgical History Surgery [...] Passive Smoke Exposure: Never Smokeless Tobacco: Never Tobacco Cessation:Counseling Given: Not Answered Alcohol Use Standard Drinks/Week Comments Not Currently [...] for your loved ones. For example, child welfare counselor or elderly care for an older adult? [...] Sign Reading Time Taken Comments Blood Pressure 124/84 12/18/2024 1:59 PM EDT Pulse 90 12/18/2024 1:59 PM EDT Temperature 36.5 C (97.7 F) 12/18/2024 1:59 PM EDT Respiratory Rate 14 12/18/2024 1:59 PM EDT Oxygen Saturation - - Inhaled Oxygen Concentration - - Weight 102 kg (224 lb) 12/18/2024 1:59 PM EDT Height 160 cm (5' 3 ) 12/18/2024 1:59 PM EDT Body Mass Index 39.68 12/18/2024 1:59 PM EDT Plan of Treatment Health Maintenance Due Date Last Done Comments HPV Vaccines (1 - 3-dose series) 12/06/2015 DTaP,Tdap,and Td Vaccines (1 - Tdap) 12/06/2019 Hepatitis B Vaccines (1 of 3 - 19+ 3-dose series) 12/06/2019 Pneumococcal Vaccine: Pediat rics (0 to 5 Years) and At-Risk Patients (6 to 49 Years) (1 of 2 - PCV) 12/06/2019 COVID-19 Vaccine ( - 2023-2 5 season) 2024 Influenza Vaccine (#1) 2025 Social Influencers of Health Screening 06/28/2025 06/28/2024 Gonorrhea/Chlamydia Screening 07/02/2025 07/02/2024 Cervical Cancer Screening: P ap Smear 08/16/2027 08/16/2024 Cholesterol Screening (Lipid Panel) 07/02/2029 07/02/2024 HIV Screening Completed 07/02/2024 Hepatitis C Screening Completed 07/02/2024 Depression Screening Completed 08/09/2024 HIB Vaccines Aged Out No longer eligi [...] Procedure Name Priority Date/Time Associated Diagnosis Comments XR LUMBAR SPINE 4+ VIEWS Routine 12/19/2024 1:02 PM EDT Chronic midline low back pain without sciatica XR FOREARM BILAT Routine 12/19/2024 1:02 PM EDT Numbness and tingling in both hands Pain in both forearms CREATINE KINASE Routine 12/19/2024 12:36 PM EDT Numbness and tingling in both hands Pain in both forearms CYCLIC CITRULLINATED PEPTIDE, IGG AND IGA Routine 12/19/2024 12:36 PM EDT Numbness and tingling in both hands Pain in both forearms TRISTA IFA WITH TITER AND PATTERN Routine 12/19/2024 12:36 PM EDT Numbness and tingling in both hands Pain in both forearms RHEUMATOID FACTOR Routine 12/19/2024 12: 36 PM EDT Numbness and tingling in both hands Pain in both forearms C-REACTIVE PROTEIN Routine 12/19/2024 12 :36 PM EDT Numbness and tingling in both hands Pain in both forearms SEDIMENTATION RATE Routine 12/19/2024 12 :36 PM EDT Numbness and tingling in both hands Pain in both forearms VITAMIN D 25 HYDROXY Routine 12/19/2024 12:36 PM EDT Numbness and tingling in both hands VITAMIN B12 AND FOLATE Routine 12:36 PM EDT Numbness and tingling in both hands THYROID STIMULATING HORMONE WITH REFLEX TO FREE T4 AND FREE T3 Routine 12/19/2024 12:36 PM EDT Numbness and tingling in both hands XR HIP 2-3 VIEWS LEFT Routine 11/06/2024 10:55 AM EDT Chronic pain of left knee WI ARTHROCENTESIS/ASPIRATI ON/INJECTION MAJOR JOINT/BURSA W/O U/S GUIDANCE Routine 11/06/2024 10:15 AM EDT Chronic pain of left knee PAP SMEAR Routine 08/16/2024 11:17 AM EST Encounter for gynecological examination without abnormal finding HEPATITIS C ANTIBODY Routine 07/02/2024 9:14 AM [...] Recently Relevant to Health Maintenance Results * XR Lumbar Spine 4+ Views (12/19/2024 1:02 PM EDT) Anatomical Region Laterality Modality Spine, L-spine Radiographic Yamileth ging 12/19/2024 4:41 PM EDT Impressions 12/19/2024 4:42 PM EDT No acute fracture or dislocation of the lumbar spine. -------- FINAL REPORT -------- Dictated By: Olena Arshad Dictated Date: 12/19/2024 16:41 ET Assigned Physician: Olena Arshad Reviewed and Electronically Signed By: Olena Arshad Signed Date: 12/19/2024 16:42 ET Workstation ID: [id number] Transcribed By: Self Edit Transcribed Date: 12/19/2024 16:41 ET Narrative 12/19/2024 4:42 PM EDT HISTORY: Pain TECHNIQUE: 4 views of the lumbar spine COMPARISON: None FINDINGS: Vertebral body height and disc spaces are preserved. No acute fracture or dislocation is seen. The spinal alignment is well maintained without evidence of spondylolisthesis. The sacroiliac joints are unremarkable. Moderate stool throughout the colon. Procedure Note Olena Arshad MD - 12/19/2024 HISTORY: Pain TECHNIQUE: 4 views of the lumbar spine COMPARISON: None FINDINGS: Vertebral body height and disc spaces are preserved. No acute fracture ordislocation is seen. The spinal alignment is well maintained withoutevidence of spondylolisthesis. The sacroiliac joints are unremarkable.Moderate stool throughout the colon. IMPRESSION: No acute fracture or dislocation of the lumbar spine. -------- FINAL REPORT -------- Dictated By: Olena Arshad Dictated Date: 12/19/2024 16:41 ET Assigned Physician: Olena Arshad Reviewed and Electronically Signed By: Olena Arshad Signed Date: 12/19/2024 16:42 ET Workstation ID: [id number] Transcribed By: Self Edit Transcribed Date: 12/19/2024 16:41 ET us Rupinder Andino MD IMG XR PROCEDURES Final Result * XR Forearm bilat (12/19/2024 1:02 PM EDT) Anatomical Region Laterality Modality Upper Extremities, Elbow Bilateral Radiogr aphic Imaging 12/19/2024 4:40 PM EDT Impressions 12/19/2024 4:41 PM EDT No acute fracture or dislocation of the radius and ulna bilaterally. -------- FINAL REPORT -------- Dictated By: Olena Arshad Dictated Date: 12/19/2024 16:40 ET Assigned Physician: Olena Arshad Reviewed and Electronically Signed By: Olena Arshad Signed Date: 12/19/2024 16:41 ET Workstation ID: [id number] Transcribed By: Self Edit Transcribed Date: 12/19/2024 16:40 ET Narrative 12/19/2024 4:41 PM EDT EXAMINATION: XR FOREARM BILAT 12/19/2024 12:56 PM Patient : 2000 CLINICAL DATA/INDICATIONS: Pain COMPARISON: None FINDINGS: 2 views of the bilateral forearms demonstrates no acute fracture or dislocation. The radius and ulna are grossly intact. The visualized elbow and wrist articulations are grossly within normal limits. Procedure Note Olena Arshad MD - 12/19/2024 EXAMINATION: XR FOREARM BILAT 12/19/2024 12:56 PM Patient : 2000 CLINICAL DATA/INDICATIONS: Pain COMPARISON: None FINDINGS: 2 views of the bilateral forearms demonstrates no acute fracture ordislocation. The radius and ulna are grossly intact. The visualized elbowand wrist articulations are grossly within normal limits. IMPRESSION: No acute fracture or dislocation of the radius and ulna bilaterally. -------- FINAL REPORT -------- Dictated By: Olena Arshad Dictated Date: 12/19/2024 16:40 ET Assigned Physician: Olena Arshad Reviewed and Electronically Signed By: Olena Arshad Signed Date: 12/19/2024 16:41 ET Workstation ID: [id number] Transcribed By: Self Edit Transcribed Date: 12/19/2024 16:40 ET us Rupinder Andino MD IMG XR PROCEDURES Final Result * Thyroid stimulating hormone with reflex to free t4 and free t3 (12/19/2024 12:36 PM EDT) Pathologist [facility] TSH 3.41 0.40 - 4.00 mcIU/mL LAB CHEMISTRY METHOD 12/19/2024 6:05 PM EDT [facility] Blood Venous blood specimen / Unknown Venipuncture / Unknown 12/19/2024 12:36 PM EDT 12/19/2024 12:36 PM EDT us Rupinder Andino MD LAB BLOOD ORDERABLES Final Resul t [facility] [address] [place] [address], [place] [phone] * Vitamin B12 and folate (12/19/2024 12:36 PM EDT) Vitamin B-12 531 250 - 900 pcg/mL LAB CHEMISTRY METHOD 12/19/2024 5:55 PM EDT [facility] Folate 5.1 2.8 - 17.0 ng/ml LAB CHEMISTRY METHOD 12/19/2024 5:55 PM EDT [facility] Blood Venous blood specimen / Unknown Venipuncture / Unknown 12/19/2024 12:36 PM EDT 12/19/2024 12:36 PM EDT us Rupinder Andino MD LAB BLOOD ORDERABLES Final Resul t Performing Organization Address [facility] Co de Phone Number [facility] [address] [place] [address], [place] [phone] * (ABNORMAL) Cyclic citrullinated peptide, IgG and IgA (12/19/2024 12:36 PM EDT) Pathologist [facility] CCP AB Quant 24(H) <20 Units LAB CHEMISTRY METHOD 12/25/2024 10:28 AM EDT [facility] Cyclic Citrullinated Peptide (CCP) Antibody Positive (A) Negative LAB CHEMISTRY METHOD 12/25/2024 10:28 AM EDT [facility] Blood Venous blood specimen / Unknown Venipuncture / Unknown 12/19/2024 12:36 PM EDT 12/19/2024 12:36 PM EDT us Rupinder Andino MD LAB BLOOD ORDERABLES Final Resul t Performing Organization Address [facility] Co de Phone Number [facility] [address] [place] [address], [place] [phone] * TRISTA IFA with titer and pattern (12/19/2024 12:36 PM EDT) TRISTA Negative Negative 12/24/2024 1:07 PM EDT [facility] Blood Venous blood specimen / Unknown Venipuncture / Unknown 12/19/2024 12:36 PM EDT 12/19/2024 12:36 PM EDT us Rupinder Andino MD LAB BLOOD ORDERABLES Final Resul t Performing Organization Address [facility]/ZIP Co de Phone Number [facility] [address] [place] [address], * (ABNORMAL) Vitamin D 25 hydroxy (12/19/2024 12:36 PM EDT) Pathologist [facility] Vit D, 25-Hydroxy 25.3(L) 30.0 - 80.0 ng/mL LAB CHEMISTRY METHOD 12/19/2024 6:05 PM EDT [facility] Blood Venous blood specimen / Unknown Venipuncture / Unknown 12/19/2024 12:36 PM EDT 12/19/2024 12:36 PM EDT us Rupinder Andino MD LAB BLOOD ORDERABLES Final Resul t Performing Organization Address [facility] de Phone Number [facility] [address] [place] [address], * (ABNORMAL) Sedimentation rate (12/19/2024 12:36 PM EDT) [facility] Sed Rate 55(H) 0 - 20 mm/hr LAB HEMETOLOGY METHOD 12/19/2024 3:18 PM EDT [facility] Blood Venous blood specimen / Unknown Venipuncture / Unknown 12/19/2024 12:36 PM EDT 12/19/2024 12:36 PM EDT us Rupinder Andino MD LAB BLOOD ORDERABLES Final Resul t Performing Organization Address [facility] Co de Phone Number [facility] [address] [place] [address], [place] [phone] * Rheumatoid factor (12/19/2024 12:36 PM EDT) [facility] Rheumatoid Factor <10.0 <15.0 I Unit/mL LAB CHEMISTRY METHOD 12/19/2024 5:55 PM EDT [facility] Blood Venous blood specimen / Unknown Venipuncture / Unknown 12/19/2024 12:36 PM EDT 12/19/2024 12:36 PM EDT us Rupinder Andino MD LAB BLOOD ORDERABLES Final Resul t Performing Organization Address [facility]/ZIP Co de Phone Number [facility] [address] [place] [address], [place] [phone] * (ABNORMAL) C-reactive protein (12/19/2024 12:36 PM EDT) Pathologist [facility] C-Reactive Protein 0.98(H) <=0.50 mg/dL LAB CHEMISTRY METHOD 12/19/2024 5:29 PM EDT [facility] Blood Venous blood specimen / Unknown Venipuncture / Unknown 12/19/2024 12:36 PM EDT 12/19/2024 12:36 PM EDT us Rupinder Andino MD LAB BLOOD ORDERABLES Final Resul t Performing Organization Address [facility] Co de Phone Number [facility] [address] [place] [address], [place] [phone] * Creatine kinase (12/19/2024 12:36 PM EDT) Pathologist [facility] Total CK 54 22 - 269 unit/L LAB CHEMISTRY METHOD 12/19/2024 5:29 PM EDT [facility] Blood Venous blood specimen / Unknown Venipuncture / Unknown 12/19/2024 12:36 PM EDT 12/19/2024 12:36 PM EDT us Rupinder Andino MD LAB BLOOD ORDERABLES Final Resul t Performing Organization Address City/[facility]/ZIP Co de Phone Number [facility] [address] [place] [address], [place] [phone] * XR Hip 2-3 Views Left (11/06/2024 10:55 AM EDT) Anatomical Region Laterality Modality Lower Extremities, Hip Left Computed Radiography 11/06/2024 5:45 PM EDT Narrative 11/06/2024 5:47 PM EDT AP view of the pelvis. Left hip, 2 views. History pain. No prior studies are available for comparison. There is no evidence of fractures, dislocations or destructive lesions. Alignment is maintained. CONCLUSIONS: No evidence of fractures or dislocations. -------- FINAL REPORT -------- Dictated By: April Walker Dictated Date: 11/06/2024 17:45 ET Assigned Physician: April Walker Reviewed and Electronically Signed By: April Walker Signed Date: 11/06/2024 17:47 ET Workstation ID: [id number] Transcribed By: Self Edit Transcribed Date: 11/06/2024 17:45 ET Procedure Note April Walker MD - 11/06/2024 AP view of the pelvis. Left hip, 2 views. History pain. No prior studies are available for comparison. There is no evidence of fractures, dislocations or destructive lesions.Alignment is maintained. CONCLUSIONS: No evidence of fractures or dislocations. -------- FINAL REPORT -------- Dictated By: April Walker Dictated Date: 11/06/2024 17:45 ET Assigned Physician: April Walker Reviewed and Electronically Signed By: April Walker Signed Date: 11/06/2024 17:47 ET Workstation ID: [id number] Transcribed By: Self Edit Transcribed Date: 11/06/2024 17:45 ET us Sheri Brandon MD IMG XR PROCEDURES Final Result * WI ARTHROCENTESIS/ASPIRATION/INJECTION MAJOR JOINT/BURSA W/O U/S GUIDANCE (11/06/2024 10:15 AM EDT) Narrative Sheri Brandon MD - 11/06/2024 10:15 AM EDT Sheri Brandon MD 11/07/2024 11:28 AM L Inj/Asp: L knee Indications: pain Details: 22 G needle, anterolateral approach Medications: 4 mL lidocaine 1 %; 40 mg triamcinolone acetonide 40 mg/mL Outcome: tolerated well, no immediate complications Informed Consent: Laterality: Left Relevant images/test results available and reviewed: yes Health status cleared: Yes Procedure/treatment, purpose, treatment alternatives, risks/potential complications and benefits explained: yes Risk/complications/benefits details: Risks include bleeding, infection, increase in pain Patient questions answered: yes Patient agrees, verbalizes understanding, and wants to proceed: yes Consent given by: Patient Informed consent discussion completed by Physician/REESE with patient: Verbal Pre-procedure timeout performed: yes Sheri Brandon MD IN CLINIC/BEDSIDE ORDERABLES F inal Result * Pap smear (08/16/2024 11:17 AM EST) Interpretation Negative for intraepithelial lesion or malignancy 08/20/2024 3:27 PM [facility] General Categorization Negative 08/20/2024 3:27 PM [facility] LMP 08/03/2024 08/20/2024 3:27 PM [facility] Additional Information Abundant acute inflammatory cells present. 08/20/2024 3:27 PM [facility] Specimen Adequacy Satisfactory for evaluation, endocervical/lind sformation zone component present 08/20/2024 3:27 PM EST [facility] Pap Methodology Liquid Based Pap Test 08/20/2024 3:27 PM [facility] Disclaimer The Pap test is a screening test which carries an inherent false negative rate. These test results should be correlated with the patient's clinical findings and history. This Pap test was processed using an automated screening system. Technical cytopathology services provided by [facility], at [address] [place] [address], [place] [address] (CLIA # [id number]/Kimmy Morgan MD, Medical Numerical Control Operator.) 08/20/2024 3:27 PM EST [facility] Console Pap Interpretation Reported 08/20/2024 3:27 PM EST [facility] Brushing/Spatula Cervix uteri structure / Unknown 08/16/2024 11:17 AM EST 08/16/2024 11:17 AM EST [place] [facility] LAB CYTOLOGY ORDERABLES Final Result Performing Organization Address [facility]/ZIP Co de Phone Number [facility] [address] [place] [address], [place] [phone] * Hepatitis C antibody (07/02/2024 9:14 AM EST) Hepatitis C Antibody Negative Negative LAB CHEMISTRY METHOD 07/02/2024 1:55 PM EST [facility] Blood Venous blood specimen / Unknown Venipuncture / Unknown 07/02/2024 9:14 AM EST 07/02/2024 9:14 AM EST Rupinder Andino MD LAB BLOOD ORDERABLES Final Resul t Performing Organization Address [facility]/ZIP Co de Phone Number [facility] [address] [place] [address], [place] [phone] * HIV 1,2 antibody, p24 antigen with reflex to differentiation (07/02/2024 9:14 AM EST) HIV Combo AB/AG Negative Negative LAB CHEMISTRY METHOD 07/02/2024 1:55 PM EST [facility] Blood Venous blood specimen / Unknown Venipuncture / Unknown 07/02/2024 9:14 AM EST 07/02/2024 9:14 AM EST Narrative [facility] - 07/02/2024 1:55 PM EST This assay is a 4th generation assay allowing for earlier detection of HIV infection by detecting the presence of the HIV-1 p24 antigen as well as the traditional antibodies to HIV type 1 (including group O) and type 2. Use of a 4th generation assay is the current CDC recommendation for HIV screening. us Rupinder Andino MD LAB BLOOD ORDERABLES Final Resul t Performing Organization Address [facility]/ZIP Co de Phone Number [facility] [address] [place] [address], * Lipid panel with reflex to direct LDL (07/02/2024 9:14 AM EST) Cholesterol 132 0 - 200 mg/dL LAB CHEMISTRY METHOD 07/02/2024 1:09 PM EST [facility] Triglycerides 59 0 - 150 mg/dL LAB CHEMISTRY METHOD 07/02/2024 1:09 PM [facility] HDL 40 >=40 mg/dL LAB CHEMISTRY METHOD 07/02/2024 1:09 PM [facility] LDL Calculated 80 0 - 100 mg/dL LAB CHEMISTRY METHOD 07/02/2024 1:09 PM EST [facility] VLDL Cholesterol Daljit 11.8 mg/dL LAB CHEMISTRY METHOD 07/02/2024 1:09 PM [facility] Non HDL Chol. (LDL+VLDL) 92 <145 mg/dL LAB CHEMISTRY METHOD 07/02/2024 1:09 PM [facility] Chol/HDL Ratio 3.3 0.0 - 4.4 LAB CHEMISTRY METHOD 07/02/2024 1:09 PM [facility] Blood Venous blood specimen / Unknown Venipuncture / Unknown 07/02/2024 9:14 AM EST 07/02/2024 9:14 AM EST us Rupinder Andino MD LAB BLOOD ORDERABLES Final Resul t Performing Organization Address [facility]/ZIP Co de Phone Number [facility] [address] [place] [address], [place] [phone] * Chlamydia trachomatis and Neisseria gonorrhoeae molecular study (07/02/2024 9:14 AM EST) Neisseria gonorrhoeae PCR Negative Negative LAB MOLECULAR DIAGNOSTICS METHOD 07/02/2024 2:46 PM EST [facility] Chlamydia trachomatis PCR Negative Negative LAB MOLECULAR DIAGNOSTICS METHOD 07/02/2024 2:46 PM EST [facility] Swab Urine specimen / Unknown Non-blood Collection / Unknown 07/02/2024 9:14 AM EST 07/02/2024 9:14 AM EST us Rupinder Andino MD LAB MICROBIOLOGY - GENERAL ORDER OSWALDO Final Result [facility] [address] [place] [address], from Last 3 Months or Most Recently Relevant to Health Maintenance Insurance [facility] [employer] Care Teams Protective Services Officer Relationship Specialty Start Date End Date Rupinder Andino MD [address] [place] [id number] PCP - General 01/24/24
[2025-01-11 15:50] VITALS: BP 107/68; PULSE 80; RESP 18; TEMP 36.7; O2SAT 96
[2025-01-11 16:06] LABS: CT PCR Urine NOT DETECTED (Not Detect.); NG PCR Urine NOT DETECTED (Not Detect.)
[2025-01-11 16:48] VITALS: BP 107/68; PULSE 80; RESP 18; TEMP 36.7; O2SAT 96
[2025-01-12 11:48] LABS: Bacterial Vaginosis PCR POSITIVE (Negative); Candida Group PCR NOT DETECTED (Not Detect); Candida glab krusei PCR NOT DETECTED (Not Detect); Trichomonas vaginalis PCR NOT DETECTED (Not Detect)
== END 2025-01-11 16:48 | disposition home or self-care (01) ==
PROVIDERS: Nurse Practitioner Family; Physician Assistant; Emergency Provider Emergency Medicine Emergency Medical Services
DX: N76.0 Acute vaginitis (principal); N39.0 Urinary tract infection, site not specified; R39.15 Urgency of urination; R30.0 Dysuria; Z79.899 Other long term (current) drug therapy
CPT/HCPCS: 36415; 81001; 81025; 81515; 87086; 87088; 87186; 87491; 87591; 99283; 99284

== ENCOUNTER 2025-02-25 10:27 | Emergency (ER) | payer OTHER, SELFPAY ==
--- OUTSIDE RECORDS SUMMARY | 2023-11-12 05:00 | XMS_ITS ---
Author Organization [facility] Address [address] [place] [address] Care Team Providers Care Wet Pan Operator Name Role Phone No Disponible, No Diponible Unavailable Unav ailable Migration, Provider Unavailable Unavailable REASON FOR VISIT [facility] [place] Location Date Provider Diagnosis [facility] [address] [place] [address] 11/12/2023 Provider Migration Plan Of Treatment No Information Progress Notes * Angelic NUNEZeDOB :2000 (24 yo F)Acc No.[id number]:11/12/2023 Patient: Angelic RIVERA :2000 A ge:22 Y S ex:Female Address:[address] [place], [address] Subjective: * Chief Complaints: * E MR-Scottie * * Date:
--- OUTSIDE RECORDS SUMMARY | 2023-11-13 05:00 | XMS_ITS ---
Author Organization [facility] Address [address] [place] [address] Care Team Providers Care Lapeler Name Role Phone No Disponible, No Diponible Unavailable Unav ailable Migration, Provider Unavailable Unavailable REASON FOR VISIT [facility] [place] Encounters Encounter Location Date Provider Diagnosis [facility] [address] [place] [address] 11/13/2023 Provider Migration Plan Of Treatment No Information Progress Notes * Angelic NUNEZeDOB :2000 (24 yo F)Acc No.[id number]:11/13/2023 Patient: Angelic RIVERA :2000 A ge:22 Y S ex:Female Address:[address] [place], [address] Subjective: * Chief Complaints: * E MR-Scottie * * Date:
--- NOTE | ~2025-02-25 | XR_ITS ---
EXAMINATION: XR CHEST CLINICAL INFORMATION: chest pain COMPARISON: None available. TECHNIQUE: 2 views of the chest were obtained. FINDINGS: No significant abnormality is noted involving the heart, lungs, mediastinum, bony thorax or soft tissues. XR/XR chest 2V IMPRESSION: No acute disease Electronically signed by: Bonifacio Martin MD 02/25/2025 10:59 AM EDT
--- NOTE | 2025-02-25 10:32 | ECG_ITS ---
Test Reason : CHEST PAIN Blood Pressure : */* mmHG Vent. Rate : 81 BPM Atrial Rate : 81 BPM P-R Int : 136 ms QRS Dur : 76 ms QT Int : 364 ms P-R-T Axes : * -23 -26 degrees QTcB Int : 422 ms Normal sinus rhythm with sinus arrhythmia Normal ECG When compared with ECG of 20-Nov-2024 16:35, No significant change was found Referred By: Jessica Cohn Electronically Signed By: OSMANI ZAVALA MD
[2025-02-25 10:41] VITALS: BP 118/70; PULSE 89; RESP 18; TEMP 36.3; O2SAT 96; BMI 40.4
--- NOTE | 2025-02-25 10:43 | ED_ITS ---
HPI - General Adult General Chief complaint: Chest Pain Stated complaint: chest pain Time Seen by Provider: 02/25/25 12:30 Source: patient and chicken vaccinator Mode of arrival: ambulatory Limitations: language barrier History of Present Illness ED Provider: HPI narrative: 24-year-old woman presenting with she reports midsternal chest pain, going on for the past 5 days as well as right-sided facial numbness without weakness, not on control pills, no history of blood clots no fevers or chills. Related Data Previous Rx's ?Medication ?Instructions ?Recorded naproxen 500 mg tablet 500 mg PO BID 30 days #60 ta bs 11/28/23 cefuroxime axetil 250 mg tablet 250 mg PO BID 7 days # 14 tabs 01/03/24 ibuprofen 600 mg tablet 600 mg PO Q6H PRN fever or p ain 01/03/24 #30 tabs terbinafine HCl 1 % topical cream 1 appl topical BID # 30 grams 01/03/24 (Antifungal (terbinafine)) acetaminophen 500 mg tablet 500 mg PO Q6H PRN pain #30 tabs 01/16/24 (Tylenol Extra Strength) naproxen 375 mg tablet 375 mg PO BID PRN pain #30 t abs 01/16/24 cefpodoxime 200 mg tablet 200 mg PO BID 10 days #20 ta bs 10/08/24 ondansetron 4 mg disintegrating 4 mg PO Q6H PRN nausea and 10/08/24 tablet vomiting #10 tabs ketorolac 10 mg tablet 10 mg PO Q6H PRN pain #20 ta bs 11/21/24 levofloxacin 750 mg tablet 750 mg PO DAILY #7 tabs 10/12 metronidazole 500 mg tablet 500 mg PO Q8H 7 days #21 t abs 11/21/24 ondansetron HCl 4 mg tablet 4 mg PO Q8H PRN nausea and 11/21/24 vomiting 3 days #9 tabs cefuroxime axetil 250 mg tablet 250 mg PO BID #14 tabs 01/11/25 metronidazole 500 mg tablet 500 mg PO BID #14 tabs Allergies Allergy/AdvReac Type Severity Reaction Status Date / Time No Known Allergies Allergy Verified 02/25/25 10:45 Review of Systems 2 Constitutional: Constitutional: Reports as per [facility] Social History Social History Alcohol intake: never Patient Tobacco Use Status: Never used Tobacco Substance Use Type: Marijuana Advance Directives: No Advance Directives Information Provided: Yes 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al status: employed 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 Physical Exam ED Vital Signs: Vital Signs - 24 hr 02/25/25 10:41 02/25/25 12:24 Temperature 97.3 F 98.2 F Pulse Rate 89 67 Respiratory Rate 18 18 Blood Pressure 118/70 122/65 Pulse Oximetry 96 99 Oxygen Delivery Method Room Air Room Air BMI result Body Mass Index 40.4 Const Other: * Gen: ?Overall well-appearing patient * HEENT: PERRLA, EOMI, MMM, * Neck: Supple, no LAD * CV: RRR, no obvious murmurs appreciated, midsternal tenderness around 3rd rib * Resp: ?No wheezing rales rhonchi no stridor moving air well * Abd: ?Bowel sounds are present, no tenderness no rebound no rigidity * MSK: FROM, strength 5/5 all extremities * Skin: Warm, dry, intact, * Neuro: ?Alert and oriented x3, moving upper and lower extremities symmetrically, no obvious facial asymmetry noted, no rashes over the face Course Course Course Narrative: Rapid medical examination performed in triage by Jessica Cohn PA-C. Patient is a 24 year old assigned female at presenting to the emergency department with chest pain and facial numbness. Detailed physical exam and review of systems are deferred to the fuel cell binder. EKG, labs, imaging, and swabs ordered. Patient placed back in the waiting room pending room availability and results. Medical Decision Making Medical Decision Making [facility] Narrative: 12:52 PM 02/25/2025 (Dr. Harjeet Puente): Considerations for work as below, did not feel she is presenting with cavernous venous thrombosis or stroke or subarachnoid hemorrhage with a facial numbness that would necessitate further imaging such as CT, her cardiac workup chest x-ray reassuring without any evidence of pneumonia, pneumothorax Exam is consistent with a costochondritis Differential Diagnosis Differential Diagnoses: The differential diagnosis associated with the presentation includes (Myocarditis, PE, pneumothorax, cavernous venous thrombosis, anxiety, costochondritis) Admission/Observation Consideration of admission/observation: Escalation of care including admission/observation considered Lab Data [facility] Lab Attestation statement: I reviewed the patient's lab results. 02/25/25 11:00 02/25/25 11:00 Labs: Lab Results 02/25/25 Range/Units 11:00 WBC 7.6 (4.8-10.8) X10*3/uL RBC 4.75 (4.20-5.50) X10*6/uL Hgb 13.1 (12.0-16.0) g/dl Hct 39.8 (37.0-47.0) % MCV 83.8 (80.0-98.0) fL MCH 27.6 (27.0-33.0) pg MCHC 32.9 (31.0-35.0) g/dl RDW 14.6 (11.0-16.0) % Plt Count 221 (160-400) X10*3/uL MPV 10.5 (9.4-12.3) fL Immature Gran % (Auto) 0.4 (0.0-0.4) % Neut % (Auto) 72.1 (45-73) % Lymph % (Auto) 19.7 L (20-40) % [place] % (Auto) 6.2 (2-11) % Eos % (Auto) 1.3 (0-4) % Baso % (Auto) 0.3 (0-2) % Lymph # (Auto) 1.5 (1.2-4.9) X10*3/uL [place] # (Auto) 0.5 (0.1-1.2) X10*3/uL Eos # (Auto) 0.1 (0.0-0.4) X10*3/uL Baso # (Auto) 0.0 (0.0-0.2) X10*3/uL Abs Immat Gran (auto) 0.03 (0.00-0.03) X10*3/uL Absolute Neuts (auto) 5.5 (2.0-8.3) x10*3/uL Absolute Nucleated RBC 0.000 (0.0-0.012) X10*3/uL Nucleated RBC % (auto) 0.0 (0.0-0.2) /100WBC Sodium 142 (135-145) mmol/L Potassium 3.8 (3.3-5.1) mmol/L Chloride 110 H (96-108) mmol/L Carbon Dioxide 23 (22-29) mmol/L Anion Gap 13 (12-20) BUN 10 (9-16) mg/dL Creatinine 0.70 (0.5-1.4) mg/dL Estim Creat Clear Calc 137.1 Estimated GFR > 60 Random Glucose 110 (60-115) mg/dL Calcium 9.3 (8.4-10.2) mg/dL Magnesium 2.0 (1.6-2.6) mg/dL Total Bilirubin 0.5 (0.0-1.0) mg/dL AST 26 (5-31) U/L ALT 21 (0-31) U/L Alkaline Phosphatase 75 (39-117) U/L Troponin I High Sens < 2.7 (<3.5-17.0) ng/L Total Protein 7.9 (6.5-8.0) g/dL Albumin 4.4 (3.5-5.0) g/dL Beta HCG, Quant < 2 mIU/mL COVID-19 (SUSAN) Negative (Negative) COVID-19 Clin Com See Note Influenza Type A (ELIZA) Negative (Negative) Influenza Type B (ELIZA) Negative (Negative) Influenza A & B Note See Note Independent Interpretation I performed an independent interpretation of an: EKG (81 beats per minute otherwise normal ECG without dysrhythmia, AV michael blocks or ST-T changes to suspect underlying ACS, my independent interpretation) Radiology Impression Discussion of test interpretation with radiology: I have reviewed the radiologist's reading. (Negative chest) Prescription Management I considered prescription management with: Pain Medication Discharge Plan Discharge Clinical Impression: Right facial numbness, Chest pain, precordial Patient Disposition: Home, Self-Care Instructions: Chest Pain (ED) Additional Instructions: There was no evidence of any other abnormalities on your workup including EKG, blood work chest x-ray you can use ibuprofen 400 mg every 6 hours needed for your pain, as far as left facial numbness as I discussed with the you, your exam is reassuring, I am not seeing any abnormalities of the physical examination, you can follow up with the PCP, patient has experienced numbness a lot of times due to anxiety, if anything worse his happening and your concern come back to the ER otherwise please make sure you have a PCP visit Prescriptions: No Action acetaminophen [Tylenol Extra Strength] 500 mg tablet 500 mg PO Q6H PRN (Reason: pain) Qty: 30 0RF naproxen 375 mg tablet 375 mg PO BID PRN (Reason: pain) Qty: 30 0RF cefpodoxime 200 mg tablet 200 mg PO BID 10 Days Qty: 20 0RF Rx Instructions: must administer with a meal/food ondansetron 4 mg tablet,disintegrating 4 mg PO Q6H PRN (Reason: nausea and vomiting) Qty: 10 0RF cefuroxime axetil 250 mg tablet 250 mg PO BID Qty: 14 0RF metronidazole 500 mg tablet 500 mg PO BID Qty: 14 0RF cefuroxime axetil 250 mg tablet 250 mg PO BID 7 Days Qty: 14 0RF ibuprofen 600 mg tablet 600 mg PO Q6H PRN (Reason: fever or pain) Qty: 30 0RF terbinafine HCl [Antifungal (terbinafine)] 1 % cream 1 appl topical BID Qty: 30 0RF ketorolac 10 mg tablet 10 mg PO Q6H PRN (Reason: pain) Qty: 20 0RF Rx Instructions: maximum total duration of 5 days from all oral, intranasal, or parenteral formulations. The patient had an IV dose of Toradol here in the emergency department. levofloxacin 750 mg tablet 750 mg PO DAILY Qty: 7 0RF metronidazole 500 mg tablet 500 mg PO Q8H 7 Days Qty: 21 0RF ondansetron HCl 4 mg tablet 4 mg PO Q8H PRN (Reason: nausea and vomiting) 3 Days Qty: 9 0RF naproxen 500 mg tablet 500 mg PO BID 30 Days Qty: 60 3RF Print Language: Martiniquais
[2025-02-25 11:06] LABS: MANUAL DIFF FLAG NO
[2025-02-25 11:08] LABS: Hematocrit 39.8 % (37.0-47.0); Hemoglobin 13.1 g/dl (12.0-16.0); Imm Gran Abs Auto 0.03 X10*3/uL (0.00-0.03); Imm Gran Pct Auto 0.4 % (0.0-0.4); Lymphocytes Absolute Auto 1.5 X10*3/uL (1.2-4.9); Mean Corpuscular HGB Conc 32.9 g/dl (31.0-35.0); Mean Corpuscular Hemoglobin 27.6 pg (27.0-33.0); Mean Corpuscular Volume 83.8 fL (80.0-98.0); NRBC Abs Auto 0.000 X10*3/uL (0.0-0.012); NRBC Pct Auto 0.0 /100WBC (0.0-0.2); Platelet Count 221 X10*3/uL (160-400); Red Blood Count 4.75 X10*6/uL (4.20-5.50); White Blood Count 7.6 X10*3/uL (4.8-10.8)
[2025-02-25 11:29] LABS: Alanine Aminotransferase 21 U/L (0-31); Albumin Level 4.4 g/dL (3.5-5.0); Alkaline Phosphatase 75 U/L (39-117); Anion Gap 13 (12-20); Aspartate Amino Transferase 26 U/L (5-31); Blood Urea Nitrogen 10 mg/dL (9-16); Calcium 9.3 mg/dL (8.4-10.2); Carbon Dioxide 23 mmol/L (22-29); Chloride 110 mmol/L (96-108); Creatinine Clr Calc Pharmacy 137.1; Estimated Glomerular Filt Rate > 60; Magnesium 2.0 mg/dL (1.6-2.6); Potassium 3.8 mmol/L (3.3-5.1); Sodium 142 mmol/L (135-145); Total Protein 7.9 g/dL (6.5-8.0)
[2025-02-25 11:31] LABS: Troponin-I High Sensitivity < 2.7 ng/L (<3.5-17.0)
[2025-02-25 11:36] LABS: COVID-19 Test Negative (Negative); IDNOW Serial# 55D5AD1C
[2025-02-25 11:37] LABS: IDNOW Serial# 58CA691E; Influenza B2 Negative (Negative)
[2025-02-25 12:24] VITALS: BP 122/65; PULSE 67; RESP 18; TEMP 36.8; O2SAT 99
--- OUTSIDE RECORDS SUMMARY | 2025-02-25 13:15 | XMS_ITS | Encounter Summary ---
Author Organization [employer] Address [address] [facility] [address] [place] [address] Care Team Providers Care Phone Circuit Operator Name Role Phone Analia Juarez Primary Care Provider [phone] Reason for Visit * Reason Onset Date Comments Nurse Triage 03/22/2023 Encounter Details Date Type Department Care Team (Late st Contact Info) Description 03/22/2023 Telephone [facility] MEDICINE [address] [place] [address] Analia Juarez FNP [address] [place], [place] [phone] Nurse Triage Social History Tobacco Use Types [...] 03/22/2023 1:23 PM EDT Triage call with [employer] Quality Assurance Technician [place] [id number] Pt reports headache and abdominal pain for [...] PM EDT Tc from pt returning call. Faroese Speaker * Telephone Encounter - Maureen Bailey RN - 03/22/2023 11:43 AM EDT Call returned to Angelic Nava for triage. No answer LVM to return call to [facility] triage line [phone]. * Telephone Encounter - Dory Barnett - 03/22/2023 10:54 AM EDT Symptoms: Headache, Abdominal Pain - Female - Not Outcome: Schedule an urgent appointment (within 4 hours) or talk to a nurse or provider soon Reason: Getting worse The caller accepted this outcome Please contact pt at [phone] documented in this encounter Plan of Treatment Not on file documented as of this encounter Visit Diagnoses Not on filedocumented in this encounter Care Teams Phone Circuit Operator Relationship Specialty Start Date End Date Analia Juarez FNP [address] [place] [phone] PCP - General Family Medicine 11/26/21 07/24/23 documented as of this encounter
--- OUTSIDE RECORDS SUMMARY | 2025-02-25 13:15 | XMS_ITS | Patient Health Record ---
Author Organization [facility] [place] [address] Care Team Providers Care Shuttle Spotter Name Role Phone No Disponible, No Diponible Unavailable Unav ailable Reason For Referral No Information Plan Of Treatment No Information
--- OUTSIDE RECORDS SUMMARY | 2025-02-25 13:15 | XMS_ITS | Clinical Summary ---
Author Organization [employer] Address [address] [facility] [address] [place] [address] Care Team Providers Care Marketing Lead Name Role Phone Unavailable Primary Care Provider [...] COVID-19 Vaccine (1 - 2023-2 5 season) 2025 Influenza Vaccine (#1) 2025 Zoster Vaccines (1 [...]
--- OUTSIDE RECORDS SUMMARY | 2025-02-25 13:16 | XMS_ITS | Clinical Summary ---
Author Organization [facility] Address [address] [place] [phone] Phone Care Team Providers Care Chainstitch Tunnel Elastic Operator Name Role Phone Rupinder Andino MD Primary Care Provider Allergies No known active allergies Medications No known medications Active Problems Problem Noted Date Diagnosed Date Asthma 04/18/2024 Encounters Date Type Department Care Team Description 12/19/2024 12:56 PM EDT - 12/19/2024 11:59 PM EDT Hospital Encounter [facility] - [place] [address] [place], [place] [phone] Discharge Disposition: Home or Self Care 12/19/2024 12:52 PM EDT - 12/19/2024 11:59 PM EDT Hospital Encounter XRAY - [facility] [address] [place], [place] [phone] Chronic midline low back pain without sciatica Discharge Disposition: Home or Self Care 12/18/2024 2:00 PM EDT Office Visit Adult Medicine [address] [phone] Rupinder Andino MD Numbness and tingling in both hands (Primary Dx); Pain in both forearms; Chronic midline low back pain without sciatica; 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 For example, child support officer or elderly care for an older adult? [...] Sexual Orientation Not on file Obstetrics History * This document contains information received from the source organization and may not represent a complete record from that organization. Para Term AB IAB SAB Ectopic Multiple Livin g Live Births 3 2 2 0 0 0 2 2 Date Outcome GA Total Labor Labor/2nd/3rd Weight Sex Type Anes PTL Zuleima A1 A5 Name Clin Term Vag-S pont Living Term Vag-S pont Living Last Filed Vital Signs Vital Sign Reading [...] - PCV) 12/06/2019 COVID-19 Vaccine (1 - 2023-2 5 season) 2025 Influenza Vaccine (#1) 2025 Social Influencers of [...] EDT Numbness and tingling in both hands PAP SMEAR Routine 08/16/2024 11:17 AM EST [...] Signed Date: 12/19/2024 16:42 ET Workstation ID: [id number] Transcribed By: Self Edit Transcribed Date: 12/19/2024 [...] Signed Date: 12/19/2024 16:42 ET Workstation ID: [id number] Transcribed By: Self Edit Transcribed Date: 12/19/2024 16:41 ET Rupinder Andino MD IMG XR PROCEDURES Final [...] Signed Date: 12/19/2024 16:41 ET Workstation ID: [id number] Transcribed By: Self Edit Transcribed Date: 12/19/2024 [...] Signed Date: 12/19/2024 16:41 ET Workstation ID: [id number] Transcribed By: Self Edit Transcribed Date: 12/19/2024 16:40 ET us Rupinder Andino MD IMG XR PROCEDURES Final Result * Thyroid stimulating hormone with reflex to free t4 and free t3 (12/19/2024 12:36 PM EDT) TSH 3.41 0.40 - 4.00 mcIU/mL LAB CHEMISTRY METHOD 12/19/2024 6:05 PM EDT [facility] Blood Venous blood specimen / Unknown Venipuncture / Unknown 12/19/2024 12:36 PM EDT 12/19/2024 12:36 PM EDT us Rupinder Andino MD LAB BLOOD ORDERABLES Final Resul t Performing Organization Address [facility]/ZIP Co de Phone Number [facility] [address] [place] [address], [place] [phone] * Vitamin B12 and folate (12/19/2024 12:36 PM EDT) Vitamin B-12 531 250 - 900 pcg/mL LAB CHEMISTRY METHOD 12/19/2024 5:55 PM EDT [facility] Folate 5.1 2.8 - 17.0 ng/ml LAB CHEMISTRY METHOD 12/19/2024 5:55 PM EDT [facility] Blood Venous blood specimen / Unknown Venipuncture / Unknown 12/19/2024 12:36 PM EDT 12/19/2024 12:36 PM EDT us Rupinder Andino MD LAB BLOOD ORDERABLES Final Resul t Performing Organization Address City/[facility]/ZIP Co de Phone Number [facility] [address] [place] [address], [place] [phone] * (ABNORMAL) Cyclic citrullinated peptide, IgG and IgA (12/19/2024 12:36 PM EDT) [facility] CCP AB Quant 24(H) <20 Units LAB CHEMISTRY METHOD 12/25/2024 10:28 AM EDT [facility] Cyclic Citrullinated Peptide (CCP) Antibody Positive (A) Negative LAB CHEMISTRY METHOD 12/25/2024 10:28 AM EDT [facility] Blood Venous blood specimen / Unknown Venipuncture / Unknown 12/19/2024 12:36 PM EDT 12/19/2024 12:36 PM EDT us Rupinder Andino MD LAB BLOOD ORDERABLES Final Resul t Performing Organization Address City/[facility]/ZIP Co de Phone Number [facility] [address] [place] [address], [place] [phone] * TRISTA IFA with titer and pattern (12/19/2024 12:36 PM EDT) [facility] TRISTA Negative Negative 12/24/2024 1:07 PM EDT [facility] Blood Venous blood specimen / Unknown Venipuncture / Unknown 12/19/2024 12:36 PM EDT 12/19/2024 12:36 PM EDT us Rupinder Andino MD LAB BLOOD ORDERABLES Final Resul t [facility] [address] [place] [address], [place] [phone] * (ABNORMAL) Vitamin D 25 hydroxy (12/19/2024 12:36 PM EDT) [facility] Vit D, 25-Hydroxy 25.3(L) 30.0 - 80.0 ng/mL LAB CHEMISTRY METHOD 12/19/2024 6:05 PM EDT [facility] Blood Venous blood specimen / Unknown Venipuncture / Unknown 12/19/2024 12:36 PM EDT 12/19/2024 12:36 PM EDT us Rupinder Andino MD LAB BLOOD ORDERABLES Final Resul t Performing Organization Address [facility] Co de Phone Number [facility] [address] [place] [address], [place] [phone] * (ABNORMAL) Sedimentation rate (12/19/2024 12:36 PM EDT) [facility] Sed Rate 55(H) 0 - 20 mm/hr LAB HEMETOLOGY METHOD 12/19/2024 3:18 PM EDT [facility] Blood Venous blood specimen / Unknown Venipuncture / Unknown 12/19/2024 12:36 PM EDT 12/19/2024 12:36 PM EDT us Rupinder Andino MD LAB BLOOD ORDERABLES Final Resul t Performing Organization Address [facility] Co de Phone Number [facility] [address] [place] [address], [place] [phone] * Rheumatoid factor (12/19/2024 12:36 PM EDT) [facility] Rheumatoid Factor <10.0 <15.0 I Unit/mL LAB CHEMISTRY METHOD 12/19/2024 5:55 PM EDT [facility] Blood Venous blood specimen / Unknown Venipuncture / Unknown 12/19/2024 12:36 PM EDT 12/19/2024 12:36 PM EDT us Rupinder Andino MD LAB BLOOD ORDERABLES Final Resul t Performing Organization Address [facility]/ZIP Co de Phone Number [facility] [address] [place] [address], [place] [phone] * (ABNORMAL) C-reactive protein (12/19/2024 12:36 PM EDT) [facility] C-Reactive Protein 0.98(H) <=0.50 mg/dL LAB CHEMISTRY METHOD 12/19/2024 5:29 PM EDT [facility] Blood Venous blood specimen / Unknown Venipuncture / Unknown 12/19/2024 12:36 PM EDT 12/19/2024 12:36 PM EDT Rupinder Andino MD LAB BLOOD ORDERABLES Final Resul t Performing Organization Address City/[facility]/ZIP Co de Phone Number [facility] [address] [place] [address], [place] [phone] * Creatine kinase (12/19/2024 12:36 PM EDT) Total CK 54 22 - 269 unit/L LAB CHEMISTRY METHOD 12/19/2024 5:29 PM EDT [facility] Blood Venous blood specimen / Unknown Venipuncture / Unknown 12/19/2024 12:36 PM EDT 12/19/2024 12:36 PM EDT us Rupinder Andino MD LAB BLOOD ORDERABLES Final Resul t Performing Organization Address [facility] de Phone Number [facility] [address] [place] [address], [place] [phone] * Pap smear (08/16/2024 11:17 AM EST) Interpretation Negative for intraepithelial lesion or malignancy 08/20/2024 3:27 PM EST [facility] General Categorization Negative 08/20/2024 3:27 PM EST [facility] LMP 08/03/2024 08/20/2024 3:27 PM EST [facility] Additional Information Abundant acute inflammatory cells present. 08/20/2024 3:27 PM EST [facility] Specimen Adequacy Satisfactory for evaluation, endocervical/lind sformation zone component present 08/20/2024 3:27 PM [facility] Pap Methodology Liquid Based Pap Test 08/20/2024 3:27 PM [facility] Disclaimer The Pap test is a screening test which carries an inherent false negative rate. These test results should be correlated with the patient's clinical findings and history. This Pap test was processed using an automated screening system. Technical cytopathology services provided by [facility], at [address] [place] [id number] (CLIA # [id number]/Kimmy Morgan MD, Main [employer] [place].) 08/20/2024 3:27 PM [facility] Console Pap Interpretation Reported 08/20/2024 3:27 PM [facility] Brushing/Spatula Cervix uteri structure / Unknown 08/16/2024 11:17 AM EST 08/16/2024 11:17 AM EST [place] [facility] LAB CYTOLOGY ORDERABLES Final Result Performing Organization Address City/[facility]/ZIP Co de Phone Number [facility] [address] [place] [address], [place] [phone] * Hepatitis C antibody (07/02/2024 9:14 AM EST) Hepatitis C Antibody Negative Negative LAB CHEMISTRY METHOD 07/02/2024 1:55 PM [facility] Blood Venous blood specimen / Unknown Venipuncture / Unknown 07/02/2024 9:14 AM EST 07/02/2024 9:14 AM EST us Rupinder Andino MD LAB BLOOD ORDERABLES Final Resul t [facility] [address] [place] [address], [place] [phone] * HIV 1,2 antibody, p24 antigen with reflex to differentiation (07/02/2024 9:14 AM EST) [facility] HIV Combo AB/AG Negative Negative LAB CHEMISTRY METHOD 07/02/2024 1:55 PM [facility] Blood Venous blood specimen / Unknown Venipuncture / Unknown 07/02/2024 9:14 AM EST 07/02/2024 9:14 AM EST Narrative [facility] - 07/02/2024 1:55 PM EST This [...] MD LAB BLOOD ORDERABLES Final Resul t [facility] [address] [place] [address], * Lipid panel with reflex to direct LDL (07/02/2024 9:14 AM EST) [facility] Cholesterol 132 0 - 200 mg/dL LAB CHEMISTRY METHOD 07/02/2024 1:09 PM [facility] Triglycerides 59 0 - 150 mg/dL LAB CHEMISTRY METHOD 07/02/2024 1:09 PM [facility] HDL 40 >=40 mg/dL LAB CHEMISTRY METHOD 07/02/2024 1:09 PM [facility] LDL Calculated 80 0 - 100 mg/dL LAB CHEMISTRY METHOD 07/02/2024 1:09 PM [facility] VLDL Cholesterol Daljit 11.8 mg/dL LAB CHEMISTRY METHOD 07/02/2024 1:09 PM [facility] Non HDL Chol. (LDL+VLDL) 92 <145 mg/dL LAB CHEMISTRY METHOD 07/02/2024 1:09 PM [facility] Chol/HDL Ratio 3.3 0.0 - 4.4 LAB CHEMISTRY METHOD 07/02/2024 1:09 PM EST [facility] Blood Venous blood specimen / Unknown Venipuncture / Unknown 07/02/2024 9:14 AM EST 07/02/2024 9:14 AM EST us Rupinder Andino MD LAB BLOOD ORDERABLES Final Resul t [facility] [address] [place] [address], [place] [phone] * Chlamydia trachomatis and Neisseria gonorrhoeae molecular study (07/02/2024 9:14 AM EST) Neisseria gonorrhoeae PCR Negative Negative LAB MOLECULAR DIAGNOSTICS METHOD 07/02/2024 2:46 PM EST [facility] Chlamydia trachomatis PCR Negative Negative LAB MOLECULAR DIAGNOSTICS METHOD 07/02/2024 2:46 PM EST [facility] Swab Urine specimen / Unknown Non-blood Collection / Unknown 07/02/2024 9:14 AM EST 07/02/2024 9:14 AM EST Rupinder Andino MD LAB MICROBIOLOGY - GENERAL ORDER OSWALDO Final Result Performing Organization Address City/[facility]/ZIP Co de Phone Number [facility] [address] [place] [address], [place] [phone] from Last 3 Months or Most Recently Relevant to Health Maintenance Insurance [facility] [employer] Care Teams Chainstitch Tunnel Elastic Operator Relationship Specialty Start Date End Date Rupinder Andino MD [address] [place] [phone] PCP - General 01/24/24
[2025-02-25 13:21] VITALS: BP 122/65; PULSE 67; RESP 18; TEMP 36.8; O2SAT 99
== END 2025-02-25 13:24 | disposition home or self-care (01) ==
PROVIDERS: Physician Assistant Medical; Emergency Provider Emergency Medicine
DX: R20.0 Anesthesia of skin (principal); R07.2 Precordial pain; R07.9 Chest pain, unspecified; Z03.818 Encounter for observation for suspected exposure to other biological agents ruled out
CPT/HCPCS: 36415; 71046; 80053; 83735; 84484; 84702; 85025; 87502; 87635; 93005; 96372; 99284; J1885; J8540

== ENCOUNTER → 2025-02-25 10:32 | Outpatient (BNV) | payer OTHER, SELFPAY | PROVIDERS: Emergency Provider Emergency Medicine; Visit Provider Internal Medicine Cardiovascular Disease | DX: R07.89 Other chest pain (principal) | CPT/HCPCS: 93010 ==

== ENCOUNTER → 2025-02-25 10:43 | Outpatient (BNV) | payer OTHER, SELFPAY | PROVIDERS: Visit Provider Radiology Diagnostic Radiology | DX: R07.2 Precordial pain (principal) | CPT/HCPCS: 71046 ==